=== PATIENT | female | born 1995 | race Caucasian/White ===

== ENCOUNTER 2016-12-12 22:21 | Inpatient (IN) | payer OTHER ==
[~2016-12-12] VITALS: Ht 167.6 cm; Wt 136.0 kg
[2016-12-12 22:24] VITALS: Ht 167.6 cm; Wt 136.0 kg
[2016-12-13] MEDS ORDERED: ONDANSETRON 4 MG INJ IV STA (02:51)
[2016-12-13] MEDS ORDERED: SOD CHLORIDE 0.9% 1,000 ML IV STA (02:51)
[2016-12-13] MEDS ORDERED: morphine 2 MG INJ IV STA (02:51)
--- NOTE | 2016-12-13 03:12 | ERD ---
ER Documentation Chief Complaint Date/Time DATE: 12/13/16 TIME: 03:11 Chief Complaint epigastric pain w/ N/V x 1 week (TRINA THOMASON NP) HPI 21-year-old female presents here in emergency department for complaints of epigastric pain nausea and vomiting for one week. Had multiple episodes of vomiting. Describes the pain as sharp pain, 6/10 scale, is worse after eating, accompanied with nausea and vomiting. Patient denies any blood in the vomit. Patient denies any blood in the stool or black stool. Patient denies any fever or chills. Patient denies hematuria or dysuria. Patient denies any flank pain. (TRINA THOMASON NP) ROS All systems reviewed and are negative except as per history of present illness. (TRINA THOMASON NP) Medications Home Meds Active Scripts Clotrimazole (Clotrim) 15 Gm Cr, 1 APPLIC TOP BID, #6 OZ Prov:SERAFIN ANTONIO 12/18/16 Pantoprazole* (Pantoprazole*) 40 Mg Tablet.dr, 40 MG PO 06,18 for 30 Days Prov:SERAFIN ANTONIO 12/18/16 Sucralfate (Carafate) 1 Gm Tablet, 1 GM PO QID for 30 Days, TAB Prov:SERAFIN ANTONIO 12/18/16 Harvel-3/Dha/Epa/Fish Oil (FISH OIL EC 1,000 MG SOFTGEL) 1 Each Capsule.dr, 1000 MG PO BID for 30 Days Prov:SERAFIN ANTONIO 12/18/16 Albuterol Sulfate* (Ventolin HFA*) 18 Gm Hfa.aer.ad, 2 PUFF INHALATION Q4H, #1 INHALER Prov:SERAFIN ANTONIO 12/18/16 Ondansetron (Ondansetron Odt) 4 Mg Tab.rapdis, 4 MG PO Q8 Y for NAUSEA AND/OR VOMITING, #30 TAB Prov:TRINA THOMASON NP 12/13/16 Hydrocodone/Acetaminophen ([place] 5-325 Tablet) 1 Each Tablet, 1 TAB PO Q6H Y for SEVERE PAIN LEVEL 7-10, #20 TAB Prov:TRINA THOMASON NP 12/13/16 Magaldrate/Simethicone* (Mylanta*) 355 Ml Susp, 30 ML PO QID Y for GASTROINTESTINAL UPSET, #1 BOTTLE Prov:TRINA THOMASON NP 12/13/16 Discontinued Reported Medications [none] No Conflict Check 12/13/16 Discontinued Scripts Omeprazole* (Omeprazole*) 20 Mg Capsule.dr, 20 MG PO DAILY, #30 Prov:TRINA THOMASON NP 12/13/16 Allergies Allergies: Coded Allergies: No Known Allergy (Unverified , 12/12/16) PMhx/Soc Medical and Surgical Hx: pt denies Medical Hx, pt denies Surgical Hx History of Surgery: No Anesthesia Reaction: No Hx Neurological Disorder: No Hx Respiratory Disorders: No Hx Cardiac Disorders: No Hx Psychiatric Problems: No Hx Miscellaneous Medical Probl: No Hx Alcohol Use: No Hx Substance Use: No Hx Tobacco Use: No Smoking Status: Never smoker (TRINA THOMASON NP) FmHx Family History: diabetes, other (HTN) (TRINA THOMASON NP) Physical Exam Vitals Vital Signs Date Time Temp Pulse Resp B/P Pulse Ox O2 Delivery O2 Flow Rate FiO2 12/13/16 08:10 98.2 92 24 117/66 98 Nasal Cannula 2.0 12/13/16 05:35 98.0 102 24 103/51 90 12/12/16 22:24 98.3 112 20 149/90 98 (NIKO MCKEON-Daksha) Physical Exam GENERAL: The patient is well developed and appropriate for usual state of health, in no apparent distress. CHEST: Clear to auscultation bilaterally. There are no rales, wheezes or rhonchi. HEART: Regular rate and rhythm. No murmurs, clicks, rubs or gallops. No S3 or S4. ABDOMEN: Soft, nontender and nondistended. Good bowel sounds. No rebound or guarding. No gross peritonitis. No gross organomegaly or masses. No Valentino sign or McBurney point tenderness. BACK: No midline or flank tenderness. EXTREMITIES: Equal pulses bilaterally. There is no peripheral clubbing, cyanosis or edema. No focal swelling or erythema. Full range of motion. Grossly neurovascularly intact. NEURO: Alert and oriented. Cranial nerves 2-12 intact. Motor strength in all 4 extremities with 5/5 strength. Sensation grossly intact. Normal speech and gait. SKIN: There is no apparent rash or petechia. The skin is warm and dry. HEMATOLOGIC AND LYMPHATIC: There is no evidence of excessive bruising or lymphedema. No gross cervical, axillary, or inguinal lymphadenopathy. (TRINA THOMASON NP) Result Diagram: 12/17/16 0600 12/17/16 0600 Results 24 hrs Laboratory Tests Test 12/13/16 03:12 12/13/16 03:16 12/13/16 06:32 White Blood Count 7.010^3/ul Red Blood Count 4.8810^6/ul Hemoglobin 13.3g/dl Hematocrit 40.7% Mean Corpuscular Volume 83.4fl Mean Corpuscular Hemoglobin 27.3pg Mean Corpuscular Hemoglobin Concent 32.7g/dl Red Cell Distribution Width 15.9% Platelet Count 70918^3/UL Mean Platelet Volume 12.8fl Neutrophils % 31.0% Lymphocytes % 49.0% Reactive Lymphocytes % 3.0% Monocytes % 10.0% Eosinophils % 4.0% Basophils % 1.0% Neutrophils # 2.210^3/ul Lymphocytes # 3.410^3/ul Monocytes # 0.710^3/ul Eosinophils # 0.310^3/ul Basophils # 0.110^3/ul Differential Comment MANUAL DIFF Platelet Estimate PLT APPEAR ADEQUATE Anisocytosis FEW Ovalocytes FEW Stomatocytes FEW Sodium Level 141mmol/L Potassium Level 3.4mmol/L Chloride Level 104mmol/L Carbon Dioxide Level 24mmol/L Anion Gap 16 Blood Urea Nitrogen 8mg/dl Creatinine 0.71mg/dl Glucose Level 105mg/dl Calcium Level 8.4mg/dl Total Bilirubin 0.4mg/dl Direct Bilirubin 0.00mg/dl Indirect Bilirubin 0.4mg/dl Aspartate Amino Transf (AST/SGOT) 101IU/L Alanine Aminotransferase (ALT/SGPT) 61IU/L Alkaline Phosphatase 72IU/L Troponin I < 0.012ng/ml B-Type Natriuretic Peptide 26PG/ML Total Protein 7.9g/dl Albumin 3.9g/dl Globulin 4.00g/dl Albumin/Globulin Ratio 0.97 Lipase 113U/L Urine Color YELLOW Urine Clarity CLEAR Urine pH 6.0 Urine Specific [place] 1.020 Urine Ketones NEGATIVE Urine Nitrite NEGATIVE Urine Bilirubin 1+ Urine Ictotest POSITIVE Urine Urobilinogen 0.2 E.U./dL Urine Leukocyte Esterase NEGATIVE Urine Hemoglobin NEGATIVE Urine Glucose NEGATIVE% Urine Total Protein NEGATIVE Blood Gas Specimen Source Blood arterial Arterial Blood Date Drawn 12/13/2016 6:40:07 AM Arterial Blood pH (Temp corrected) 7.423 Arterial Blood pCO2 (Temp correct) 34.6mmhg Arterial Blood pO2 (Temp corrected) 83.0mmHG Arterial Blood HCO3 22.1mmol/L Arterial Blood Base Excess -1.7mmol/L Arterial Blood Oxygen Saturation 96.3mmHG Cameron Test ACCEPTAB Arterial Blood Gas Puncture Site Right Radial Arterial Blood Carboxyhemoglobin 0.3% Arterial Blood Methemoglobin 0.4% Blood Gas A-a O2 Differential 68.6mmHg Oxyhemoglobin Percent 95.6% Total Hemoglobin 13.4g/dl Blood Gas Temperature 37.0C Blood Gas Modality NASAL CANNULA FiO2 27.0% Blood Gas Notified Whom UP Blood Gas Notified Time 12/13/2016 6:48:57 AM Current Medications Medications (Trade) Dose Ordered Sig/Ashtyn Route PRN Reason Start Time Stop Time Status Last Admin Dose Admin Sodium Chloride (NS) 1,000 ml @ 1,000 mls/hr Q1H STAT IV 12/13/16 02:51 12/13/16 03:50 DC 12/13/16 03:15 Morphine Sulfate (morphine) 2 mg ONCE STAT IV 12/13/16 02:51 12/13/16 02:52 DC 12/13/16 03:16 Ondansetron HCl (Zofran Inj) 4 mg ONCE STAT IV 12/13/16 02:51 12/13/16 02:52 DC 12/13/16 03:15 Miscellaneous Medication 40 ml 40 ml ONCE ONCE PO 12/13/16 05:00 12/13/16 05:09 DC 12/13/16 05:13 Sodium Chloride (NS) 100 ml @ ud STK-MED ONCE .ROUTE 12/13/16 07:18 12/13/16 07:19 DC 12/13/16 07:59 Iohexol 150 ml 150 ml STK-MED ONCE .ROUTE 12/13/16 07:18 12/13/16 07:19 DC Iohexol (Omnipaque) 100 ml @ ud STK-MED ONCE .ROUTE 12/13/16 07:33 12/13/16 07:34 DC 12/13/16 08:00 Iohexol (Omnipaque 350mg/ ml) 50 ml STK-MED ONCE .ROUTE 12/13/16 07:33 12/13/16 07:34 DC 12/13/16 08:00 (NIKO MCKEON PA-C) Results 24 hrs Patient was given medication for pain here in emergency department, after treatment, patient verbalized feeling much better. Patient's pain is improved.Patient was given Zofran here in the emergency department. After treatment, patient was able to tolerate po fluids here in the emergency department without any vomiting. There is no signs and symptoms of dehydration. Normal saline IV bolus was given here in emergency department for rehydration, patient tolerated IV fluids. PROCEDURE: Abdominal ultrasound, limited. CLINICAL INDICATION: Abdominal pain. TECHNIQUE: Multiple real-time images were acquired of the patient's right upper abdomen utilizing a high resolution transducer. COMPARISON: None FINDINGS: The liver demonstrates increased echogenicity and size measuring 20.6 cm. There is no focal mass or intrahepatic biliary ductal dilatation. The portal vein is patent. The gallbladder is not distended. No gallstones are identified. There is no pericholecystic fluid or gallbladder wall thickening. The common bile duct measures 4.8 mm in maximal dimension. The pancreas is obscured by overlying bowel gas. No free fluid is identified. The right kidney is normal size and echogenicity measuring 11.1 cm. There is no focal renal mass or echogenic calculus identified. There is no obstructive uropathy. IMPRESSION: Enlarged liver with fatty infiltration. Pancreas obscured by overlying bowel gas. .Óscar Whitney MD, MD Date Time Electronically viewed and signed by .Óscar Whitney MD, MD on 12/13/2016 04:32 .T/ CC: TRINA THOMASON NP Upon trying to reevaluate the patient, patient continued to have mild elevation of heart rate, 10 4 bpm, now hypoxic at 89-91% O2 saturation, further evaluation and discussion with the patient was done, states that she sometimes has on and off shortness of breath for the last 3 days, I discussed this case with my attending physician, Dr. Riddle, he recommended to do a chest x-ray, and consider possible CT angiogram if chest x-ray is normal. (TRINA THOMASON NP) Procedures/MDM Medical Decision Making: Patient's symptoms of epigastric pain most likely is consistent with gastritis. No gallbladder stones noted ear no symptoms of pancreatitis. Liver function tests are normal, lipase normal. No leukocytosis or bandemia noted. There is low suspicion for abdominal emergencies at this time. Patients abdominal exam is normal at this time. Patients radiology exam does not show any abdominal emergencies at this time. There is low suspicion for appendicitis, cholecystitis, abdominal aortic aneurysms or peritonitis at this time. There is low suspicion for sepsis. Patient appears well and is hemodynamically stable. Patient will be signed out J RAFA Mckeon, as per discussion with Dr. Riddle, to do a chest x-ray, pending results at this time, a chest x-ray is normal to consider CT angiogram. (TRINA THOMASON NP) ED COURSE: Patient was signed out to me by EXPLOSIVE OPERATOR, Trina Thomason. Upon review of the patient's case, CBC, BMP, lipase are unremarkable. Gallbladder ultrasound was unremarkable. The patient was stable throughout ED course. I kept the patient and/or family informed of laboratory and diagnostic imaging results throughout the ED course. EKG: Read by Dr. Milan, attending physician. EKG shows normal sinus rhythm at a rate of 96 bpm. No arrhythmias, acute ST elevations or T wave changes were noted. DIAGNOSTIC IMAGING: Read by radiologist. DIAGNOSTIC IMAGING REPORT Patient: ALYSSA CHAMORRO : 1995 Age: 21 Sex: F MR #: [id number] [facility] #: [id number] DOS: 12/13/16 0000 Ordering MD: TRINA THOMASON NP Location: [facility] Room/Bed: PROCEDURE: XR Chest. CLINICAL INDICATION: Hypoxia TECHNIQUE: A single AP view of the chest was obtained. COMPARISON: None. FINDINGS: Lung volumes are low. There are mild diffuse interstitial opacities. No focal airspace opacification, pleural effusion or pneumothorax is seen. The cardiomediastinal silhouette is mildly enlarged. The osseous structures are unremarkable. IMPRESSION: 1. Mild diffuse interstitial opacities, at least partially related to low lung volumes. Interstitial edema/pneumonitis is not excluded. 2. Mild cardiomegaly. RPTAT: .Christina Lee MD, Date Time Electronically viewed and signed by .Christina Lee MD, MD on 12/13/2016 06 :09 .G/ CC: TRINA THOMASON NP DIAGNOSTIC IMAGING REPORT Patient: ALYSSA CHAMORRO : 1995 Age: 21 Sex: F MR #: [id number] DOS: 12/13/16 0644 Ordering MD: NIKO MCKEON PA-C Location: [facility] Room/Bed: PROCEDURE: CT pulmonary angiogram. CLINICAL INDICATION: Hypoxia, shortness of breath TECHNIQUE: CT scan of the chest and CT pulmonary angiogram was performed utilizing axial tomographic imaging from the thoracic inlet to the domes of the diaphragm. High-resolution thin slice coronal and sagittal imaging was obtained from the axial source images. 3-D volumetric rendered post processing was performed as well. The patient was examined following the uncomplicated intravenous administration of 125 cc of Omnipaque 350. The images were reviewed on a PACS workstation. The total exam CTDI equals 7.04, 56.34, 19.95 and the total exam DLP equals 729.89 mGy-cm. COMPARISON: Chest x-ray performed earlier on the same date FINDINGS: Lung volumes are low. There are diffuse bilateral interstitial opacities. There is prominence of the dependent pulmonary vessels. There is mild bibasilar atelectasis. No focal airspace opacity, pleural effusion, or pneumothorax is seen. No pulmonary nodules or masses are identified. There is no abnormal interstitial thickening. The trachea and proximal bronchi are unremarkable. The visualized thyroid is unremarkable. The heart is mildly enlarged. The aorta demonstrates normal branching pattern. The aorta is normal in caliber. There is no evidence of aortic dissection. The central pulmonary arteries are normal in caliber. The attenuation of the central pulmonary arteries measures 275 HU. No filling defects are identified within the proximal pulmonary arterial branches to suggest pulmonary embolism. No hilar, mediastinal, or axillary lymphadenopathy is identified. Limited evaluation of the upper abdomen demonstrates hepatosplenomegaly. The osseous structures are unremarkable. IMPRESSION: 1. No CT evidence for pulmonary embolism. 2. Mild cardiomegaly with findings suggesting pulmonary vascular congestion and interstitial edema. 3. Hepatosplenomegaly. RPTAT: HH .Christina Lee MD, MD Date Time Electronically viewed and signed by .Christina Lee MD, MD on 12/13/2016 08 :07 .G/ CC: NIKO MCKEON PA-C Patient presents to the emergency department with epigastric pain 3 days. Upon discharge patient was noted to have oxygen saturation of 88%. Patient states she did have some shortness of breath. Given her low O2 sats and shortness of breath, chest x-ray, EKG, troponin, BNP were ordered. Patient's chest x-ray showed mild diffuse interstitial opacities, at least partially related to low lung volumes. Interstitial edema/pneumonitis is not excluded. Mild cardiomegaly. EKG was within normal limits. Trop was negative. BNP was negative. I discussed the patient's case with my supervising physician, Dr. Milan. Given that patient continued to be tachycardic and have low O2 sats, requiring O2 therapy, a CTPA was ordered. CT PA showed no evidence of a pulmonary embolism. Mild cardiomegaly with findings of pulmonary vascular congestion and interstitial edema was noted. Hepatosplenomegaly was noted. I again discussed the findings of the CTPA with my supervising physician, Dr. Milan. Given that patient remains to have low O2 sats when not on oxygen therapy, patient will be admitted for further management. At this time, the patient's diagnosis is most consistent with hypoxia of unknown etiology. Patient was stable throughout entire ED course. (NIKO MCKEON PA-C) I was made aware of this patient early on his workup began in fast track. She had hypoxia and tachypnea. For blood gas analysis showing a low CO2 and less than optimal oxygenation and seem most likely this obese female had a pulmonary embolism. However CT is negative. She has also had no symptoms of infection and currently has no signs of bronchitis or pneumonia. She has no history of reactive airway disease was not wheezing and her expiratory time was much less and her inspiratory time. She received a breathing treatment to check for effectiveness and this did not have much effect either. She returned from CAT scan she was again satting at 88% without oxygen although she did not feel short of breath at that time. Because an etiology has not been found to why this young female would have hypoxia and shortness of breath and having her admitted. I have also ordered an echocardiogram to be performed today. I spoke with Dr. Calderón who will be admitting the patient to telemetry. (JOSE EDUARDO MILAN DO) Departure Diagnosis: Primary Impression: Hypoxia Additional Impressions: Tachypnea Dyspnea Epigastric pain Condition: Stable Patient Instructions: Epigastric Pain (Uncertain Cause) Additional Instructions: Patient is advised to take medications as prescribed. Patient is advised to rest, increase fluid intake and do avoid spicy food, eat at regular intervals, do brat diet for next 1-2 days and progress as tolerated. Patient is advised that if symptoms are worse, severe abdominal pain, uncontrolled vomiting, high fever, severe flank pain, worst signs and symptoms, to return to the emergency department immediately. Otherwise, patient can follow up with primary care doctor in 5-7 days. TRINA THOMASON NP December 13, 2016 03:12 NIKO MCKEON PA-C December 13, 2016 08:02 JOSE EDUARDO MILAN DO December 13, 2016 11:30
[2016-12-13 03:35] LABS: ADD SCAN DIFF NO
[2016-12-13 03:38] LABS: HEMATOCRIT 40.7 % (37.0-47.0); HEMOGLOBIN 13.3 g/dl (12.0-16.0); MEAN CORPUSCULAR HEMOGLOBIN 27.3 pg (29.0-33.0); MEAN CORPUSCULAR HGB CONC 32.7 g/dl (32.0-37.0); MEAN CORPUSCULAR VOLUME 83.4 fl (82.0-101.0); MEAN PLATELET VOLUME 12.8 fl (7.4-10.4); PLATELET COUNT 154 10^3/UL (140-415); RED BLOOD COUNT 4.88 10^6/ul (4.20-5.40); RED CELL DISTRIBUTION WIDTH 15.9 % (11.5-14.5)
[2016-12-13 03:39] LABS: ADD UMIC NO; URINE BILIRUBIN (Dip) 1+ (NEGATIVE); URINE BLOOD (Dip) NEGATIVE (NEGATIVE); URINE COLOR YELLOW (YELLOW); URINE GLUCOSE (Dip) NEGATIVE (NEGATIVE); URINE KETONES (Dip) NEGATIVE (NEGATIVE); URINE LEUKOCYTE ESTERASE (Dip) NEGATIVE (NEGATIVE); URINE NITRITE (Dip) NEGATIVE (NEGATIVE); URINE TOTAL PROTEIN (Dip) NEGATIVE (NEGATIVE); URINE UROBILINOGEN (Dip) 0.2 E.U./dL (0.1-1.0)
[2016-12-13 03:53] LABS: ALBUMIN 3.9 g/dl (3.3-4.9)
[2016-12-13 03:54] LABS: POTASSIUM 3.4 mmol/L (3.5-5.1)
[2016-12-13 03:54] LABS: ICTOTEST POSITIVE (NEGATIVE)
[2016-12-13 03:56] LABS: ALBUMIN/GLOBULIN RATIO 0.97; BILIRUBIN,INDIRECT 0.4 mg/dl (0-1.1); BILIRUBIN,TOTAL 0.4 mg/dl (0.2-1.3); CREATININE 0.71 mg/dl (0.44-1.00); TOTAL PROTEIN 7.9 g/dl (6.1-8.1)
[2016-12-13 03:57] LABS: CALCIUM 8.4 mg/dl (8.4-10.2)
--- NOTE | 2016-12-13 04:33 | RADRPT ---
PROCEDURE: Abdominal ultrasound, limited. CLINICAL INDICATION: Abdominal pain. TECHNIQUE: Multiple real-time images were acquired of the patient's right upper abdomen utilizing a high resolution transducer. COMPARISON: None FINDINGS: The liver demonstrates increased echogenicity and size measuring 20.6 cm. There is no focal mass or intrahepatic biliary ductal dilatation. The portal vein is patent. The gallbladder is not distend ed. No gallstones are identified. There is no pericholecystic fluid or gallbladder wall thickening . The common bile duct measures 4.8 mm in maximal dimension. The pancreas is obscured by overlying bowel gas. No free fluid is identified. The right kidney is normal size and echogenicity measuring 11.1 cm. There is no focal renal mass or echogenic calculus identified. There is no obstructive uropathy. IMPRESSION: Enlarged liver with fatty infiltration. Pancreas obscured by overlying bowel gas. .Óscar Whitney MD, MD Date Time Electronically viewed and signed by .Óscar Whitney MD, MD on 12/13/2016 04:32 .T/
[2016-12-13] MEDS ORDERED: LIDOCAINE/MYLANTA 40 ML BTL PO ONE (05:00)
[2016-12-13] MEDS ORDERED: MAG-19 PO (05:01)
[2016-12-13] MEDS ORDERED: OMEP20CA16 PO (05:01)
[2016-12-13] MEDS ORDERED: ONDA4TAB14 PO (05:01)
[2016-12-13] MEDS ORDERED: HYDR-906 PO (05:01)
[2016-12-13 05:25] LABS: BASOPHIL # 0.1 10^3/ul (0.0-0.1); EOSINOPHILS # 0.3 10^3/ul (0.0-0.5); LYMPHOCYTES # 3.4 10^3/ul (0.8-2.9); MONOCYTE # 0.7 10^3/ul (0.3-0.9); NEUTROPHIL # 2.2 10^3/ul (1.6-7.5)
[2016-12-13 05:26] LABS: ANISOCYTOSIS FEW; OVALOCYTES FEW; PLATELET ESTIMATE PLT APPEAR ADEQUATE; STOMATOCYTES FEW
--- NOTE | 2016-12-13 06:10 | RADRPT ---
PROCEDURE: XR Chest. CLINICAL INDICATION: Hypoxia TECHNIQUE: A single AP view of the chest was obtained. COMPARISON: None. FINDINGS: Lung volumes are low. There are mild diffuse interstitial opacities. No focal airspace opacificati on, pleural effusion or pneumothorax is seen. The cardiomediastinal silhouette is mildly enlarged. The osseous structures are unremarkable. IMPRESSION: 1. Mild diffuse interstitial opacities, at least partially related to low lung volumes. Interstiti al edema/pneumonitis is not excluded. 2. Mild cardiomegaly. RPTAT: HH .Christina Lee MD, MD Date Time Electronically viewed and signed by .Christina Lee MD, on 12/13/2016 06:09 .G/
[2016-12-13 06:49] LABS: AADO2 Arterial 68.6 mmHg (7.0-24.0); Allen Test ACCEPTAB; Arterial Base Excess -1.7 mmol/L (-3.0-3); Arterial COHb 0.3 % (0.0-3.0); Arterial Fraction of Oxyhgb 95.6 % (93.0-99.0); Arterial HCO3 22.1 mmol/L (22.0-26.0); Arterial MetHb 0.4 % (0.0-1.5); Arterial Total Hemglobin 13.4 g/dl (12.0-18.0); MODE NASAL CANNULA
[2016-12-13] MEDS ORDERED: SOD CHLORIDE 0.9% 100 ML ONE (07:18)
[2016-12-13] MEDS ORDERED: IOHEXOL 300MG/ML 150 ML BTL ONE (07:18)
[2016-12-13] MEDS ORDERED: IOHEXOL 350MG/ML 50 ML BTL ONE (07:33)
[2016-12-13] MEDS ORDERED: IOHEXOL 100 ML ONE (07:33)
--- NOTE | 2016-12-13 08:07 | RADRPT ---
PROCEDURE: CT pulmonary angiogram. CLINICAL INDICATION: Hypoxia, shortness of breath TECHNIQUE: CT scan of the chest and CT pulmonary angiogram was performed utilizing axial tomograp hic imaging from the thoracic inlet to the domes of the diaphragm. High-resolution thin slice coron al and sagittal imaging was obtained from the axial source images. 3-D volumetric rendered post pro cessing was performed as well. The patient was examined following the uncomplicated intravenous adm inistration of 125 cc of Omnipaque 350. The images were reviewed on a PACS workstation. The total ex am CTDI equals 7.04, 56.34, 19.95 and the total exam DLP equals 729.89 mGy-cm. COMPARISON: Chest x-ray performed earlier on the same date FINDINGS: Lung volumes are low. There are diffuse bilateral interstitial opacities. There is prominence of t he dependent pulmonary vessels. There is mild bibasilar atelectasis. No focal airspace opacity, pl eural effusion, or pneumothorax is seen. No pulmonary nodules or masses are identified. There is no abnormal interstitial thickening. The trachea and proximal bronchi are unremarkable. The visualized thyroid is unremarkable. The heart is mildly enlarged. The aorta demonstrates cristin l branching pattern. The aorta is normal in caliber. There is no evidence of aortic dissection. Th e central pulmonary arteries are normal in caliber. The attenuation of the central pulmonary arteri es measures 275 HU. No filling defects are identified within the proximal pulmonary arterial branch es to suggest pulmonary embolism. No hilar, mediastinal, or axillary lymphadenopathy is identified. Limited evaluation of the upper abdomen demonstrates hepatosplenomegaly. The osseous structures are unremarkable. IMPRESSION: 1. No CT evidence for pulmonary embolism. 2. Mild cardiomegaly with findings suggesting pulmonary vascular congestion and interstitial edema. 3. Hepatosplenomegaly. RPTAT: HH .Christina Lee MD, Date Time Electronically viewed and signed by .Christina Lee MD, MD on 12/13/2016 08:07 .Mayela/
[2016-12-13 08:10] VITALS: TEMP 98.2
[2016-12-13] MEDS ORDERED: ALBUTEROL 0.083% (NEB) 2.5 MG/3 ML AMP HHN STA (09:24)
[2016-12-13] MEDS ORDERED: ONDANSETRON 4 MG INJ IV PRN ×2 (09:30→12:30)
[2016-12-13] MEDS ORDERED: ACETAMINOPHEN 325 MG TAB PO PRN ×2 (09:30→12:30)
[2016-12-13] MEDS ORDERED: IPRATROPIUM (NEB) 0.5 MG/2.5 ML AMP HHN ONE (09:30)
[2016-12-13] MEDS ORDERED: FAMOTIDINE 20 MG TAB PO ONE (09:30)
[2016-12-13] MEDS ORDERED: HYDROCODONE/APAP (5/325) TAB PO PRN (12:30)
[2016-12-13] MEDS ORDERED: hydrALAzine 20 MG INJ IV PRN (12:30)
[2016-12-13] MEDS ORDERED: MAGNESIUM HYDROXIDE 30ML CUP PO PRN (12:30)
[2016-12-13] MEDS ORDERED: NACL 0.9% 3 ML SYG IV SCH (12:30)
[2016-12-13] MEDS ORDERED: LORAZEPAM 2 MG INJ IV PRN (12:30)
[2016-12-13] MEDS ORDERED: FUROSEMIDE 40 MG INJ IV ONE (12:30)
[2016-12-13] MEDS ORDERED: BISACODYL (EC) 5 MG TAB PO PRN (12:30)
--- NOTE | 2016-12-13 13:36 | RADRPT ---
PROCEDURE: US bilateral lower extremity veins. CLINICAL INDICATION: Bilateral leg pain and swelling. Shortness of breath. TECHNIQUE: Multiple longitudinal and transverse images of the bilateral lower extremity veins were obtained with delaney scale and color Doppler imaging. The common femoral vein, femoral vein, and popl iteal vein were evaluated. 2D grayscale measurements with compression sonography, color Doppler, and pulsed Doppler with augmentation. COMPARISON: No prior studies are available for comparison. FINDINGS: The bilateral common femoral, femoral and popliteal veins are normally compressible throughout. Col or flow demonstrates normal filling of the vessels. Normal waveforms are visualized and there is no rmal response to augmentation. IMPRESSION: 1. No evidence of deep vein thrombosis involving either lower extremity. RPTAT: QQ .Rian Thornton MD, MD Date Time Electronically viewed and signed by .Rian Thornton MD, on 12/13/2016 13:36 .R/
[2016-12-13 14:02] LABS: CHOL/HDL RATIO 8.6 RATIO
[2016-12-13 14:04] LABS: CREATINE KINASE 116 IU/L (23-200)
[2016-12-13 14:14] LABS: CK-MB 0.73 ng/ml (0.0-2.4)
[2016-12-13 15:09] LABS: TROPONIN-I < 0.012 ng/ml (0.00-0.12)
--- NOTE | 2016-12-13 16:20 | HP ---
DATE OF ADMISSION: 12/12/2016 TIME OF EVALUATION: 12:00 p.m. REASON FOR ADMISSION: Epigastric pain with nausea, vomiting x1 week, dyspnea. HISTORY OF PRESENT ILLNESS: This is a 21-year-old morbidly obese female who verbalized past medical history of essential hypertension but not on any regular medications. She came to the emergency room with chief complaint of epigastric pain, nausea, and vomiting for 1 week. The patient verbalized the pain as a sharp pain, 6/10, that was worse after eating and accompanied with nausea and vomiting. The patient denied any blood or bile in her vomitus. She denied any melena or hematochezia. The patient denied any fevers or chills. The patient denied dysuria, hematuria or pyuria. The patient underwent a gallbladder ultrasound in the emergency room that showed enlarged liver with fatty infiltration and pancreas obscured by overlying bowel gas. The patient was to be discharged from the ER. However, the patient was noticed to be severely hypoxic. The patient was saturating in the low 80s on room air. The patient also verbalized shortness of breath for the past 3 days upon further questioning. The patient subsequently underwent a CT angiogram of the chest that showed no CT evidence of pulmonary embolism but mild cardiomegaly with findings suggestive of pulmonary vascular congestion and interstitial edema and hepatosplenomegaly. Hence, a clinical decision was made to admit the patient to inpatient setting to have her further evaluated. PAST MEDICAL HISTORY: Essential hypertension. Obesity. PAST SURGICAL HISTORY: Left ankle surgery. HOME MEDICATIONS: None. ALLERGIES: NO KNOWN DRUG ALLERGIES. SOCIAL HISTORY: The patient lives at home with her family. Currently works in a bakery. Denies any use of tobacco, alcohol or illicit drugs. REVIEW OF SYSTEMS: A 12-point review of systems was made, and the review of systems is negative except for what is mentioned in the history of present illness. PHYSICAL EXAMINATION: VITAL SIGNS: Temperature 98.2, pulse rate 84, respiratory rate 29, blood pressure 102/32, oxygen saturation 92% on room air. GENERAL: This is a morbidly obese female lying in bed in no apparent distress. HEENT: Head normocephalic and atraumatic. Eyes: Anicteric sclerae. Conjunctivae clear. ENT: Nasal septum is midline. Oral mucosa is dry. NECK: Short and obese with increased neck circumference. RESPIRATORY: Bilaterally diminished breath sounds. A few fine crackles heard at the bases. No use of accessory muscles of respiration. CARDIAC: Regular rate and rhythm. S1, S2 heard. ABDOMEN: Soft, nontender and nondistended. Bowel sounds positive in all 4 quadrants. GENITOURINARY: Deferred. EXTREMITIES: No cyanosis, no clubbing, no edema. Peripheral pulses palpable. NEUROLOGIC: The patient is awake, alert and oriented. Cranial nerves are grossly intact. LABORATORY AND DIAGNOSTIC DATA: WBC 7.0, hemoglobin 13.3, hematocrit 40.7, platelet count 154. Sodium 141, potassium 3.4, chloride 104, carbon dioxide 25 , anion gap 16, BUN 8, creatinine 0.71, glucose 105, calcium 8.4, AST 101, ALT 60, alkaline phosphatase 72. IMPRESSION: A 21-year-old female who came to the emergency room with multiple complaints who was noticed to have hypoxia with radiographic evidence of pulmonary vascular congestion who will be admitted here for further treatment and evaluation. ASSESSMENT AND PLAN: 1. Acute respiratory failure. Hypoxic. Etiology could be most probably secondary to pulmonary vascular congestion secondary to diastolic heart failure versus others. The patient will be provided with adequate oxygen. She will be started on inhaled bronchodilators and diuretics. A 2D echocardiogram will be obtained to evaluate the left ventricular ejection fraction. 2. Abdominal pain with associated nausea and vomiting. Etiology unclear. Gallbladder ultrasound showing hepatosplenomegaly and fatty infiltration of the liver. The patient will be treated symptomatically. If the patient continues to have abdominal pain, further imaging studies will be done. The patient's abdominal pain has been improving. 3. Morbid obesity. Body mass index of 48.4 kg/meter squared. Weight reduction will be advised. A fasting lipid panel will be obtained. Hemoglobin A1c will be obtained. Plan. The patient will be admitted to inpatient telemetry floor. The patient will be started on a low-cholesterol diet. The patient will be started on DVT prophylaxis and gastrointestinal prophylaxis. The patient will remain a FULL CODE. Activities will be as tolerated. The rest of the patient's management will be based on clinical course and the results of diagnostic studies. Based on the patient's clinical presentation, she most probably requires at least 1-midnight's stay for further management and evaluation of her clinical presentation. The case and management of this patient was fully discussed with Dr. Romo. SHANON ROMO MD, AM/DAVID Conf#: [id number] DID#: [id number] ANAMIKA
[2016-12-13] MEDS: ALBUTEROL 0.083% (NEB) 2.5 MG/3 ML AMP HHN SCH ×2 (16:41→21:28)
--- NOTE | 2016-12-13 17:29 | RADRPT ---
Echocardiogram Report Patient Name: ALYSSA CHAMORRO Gender: Female Date: 1995 Study Date: 13-Dec-2016 Fine Unhairer: Emily Perez [facility] Location: [facility] Ref. Physician: JOSE EDUARDO MILAN Quality: Good Procedures: Transthoracic echocardiogram with complete 2D, M-Mode, and doppler examination. Indications: Shortness of breath. Tachycardia. Negative workup. Hypoxia. 2D/M Mode Doppler Measurement Value Normal Ranges Measurement Value Normal Ranges LVIDd 2D 4.8 3.5 - 5.6 cm AV Peak Ladarius 2.1 m/sec LVIDs 2D 2.0 2.1 - 4.1 cm AV Peak PG 17.8 mmHg LVPWd 2D 1.0 0.6 - 1.1 cm LVOT Peak [place] 1.6 m/sec IVSd 2D 1.0 0.6 - 1.1 cm LVOT Peak PG 9.7 mmHg AoR Diam 2D 2.4 2.0 - 3.7 cm MV E Peak Ladarius 1.1 m/sec EDV 2D 106.8 cm3 MV A Peak Ladarius 1.0 m/sec ESV 2D 8.0 cm3 MV E/A 1.2 LA Dimen 2D 3.3 2.3 - 4.0 cm MV Decel Time 128 msec MV Decel Buchanan 9 MV E/A 1.2 TR Peak Ladarius 2.0 m/sec TR Peak PG 15.8 mmHg RVSP 19.0 mmHg Findings Left Ventricle: Normal left ventricular systolic function. Normal left ventricular cavity size. Normal left ventricular wall thickness. Ejection fraction is visually estimated at 65 %. Tissue Doppler/Mitral Doppler indices are within normal limits. Right Ventricle: Normal right ventricular size. Normal right ventricular systolic function. Left Atrium: The left atrium is normal in size. Right Atrium: The right atrium is normal in size. Mitral Valve: Normal appearance and function of the mitral valve with trace physiologic regurgitation. Aortic Valve: Normal appearance of the aortic valve. No significant aortic stenosis or insufficiency. Tricuspid Valve: Normal appearance and function of the tricuspid valve with trace physiologic regurgitation. Estimated peak PA systolic pressure 19 mmHg. Pulmonic Valve: Normal pulmonic valve appearance. Pericardium: Normal pericardium with no significant pericardial effusion. Aorta: Normal aortic root. IVC: Normal size and normal respiratory collapse consistent with normal right atrial pressure. Conclusions 1.Normal left ventricular systolic function. Normal left ventricular cavity size. Normal left ventricular wall thickness. Ejection fraction is visually estimated at 65 %. Tissue Doppler/Mitral Doppler indices are within normal limits. 2.Normal right ventricular size. Normal right ventricular systolic function. 3.The left atrium is normal in size. 4.The right atrium is normal in size. 5.No significant valvular stenosis or regurgitation seen. 6.Normal pericardium with no significant pericardial effusion. Electronically Signed By: Tigre Cardenas 13-Dec-2016 17:28:49 -0700 Patient Name: ALYSSA CHAMORRO Study Date: 13-Dec-2016 [id number]
[2016-12-13 18:09] VITALS: PULSE 93
[2016-12-13 19:31] VITALS: BP 115/57; RESP 20
[2016-12-13 20:13] VITALS: PULSE 84
[2016-12-13] MEDS: FAMOTIDINE 20 MG INJ IV SCH (21:35)
[2016-12-14] VITALS (12 sets, daily range): BP systolic 116–141; BP diastolic 57–65; PULSE 65–109; RESP 15–20
[2016-12-14 07:18] LABS: ADD SCAN DIFF NO
[2016-12-14 07:30] LABS: BASOPHILS % 0.7 % (0.0-2.0); EOSINOPHILS # 0.3 10^3/ul (0.0-0.5); EOSINOPHILS % 5.6 % (0.0-7.0); HEMATOCRIT 36.8 % (37.0-47.0); HEMOGLOBIN 11.7 g/dl (12.0-16.0); LYMPHOCYTES # 3.1 10^3/ul (0.8-2.9); MEAN CORPUSCULAR HEMOGLOBIN 26.5 pg (29.0-33.0); MEAN CORPUSCULAR HGB CONC 31.8 g/dl (32.0-37.0); MEAN CORPUSCULAR VOLUME 83.4 fl (82.0-101.0); MONOCYTE # 0.4 10^3/ul (0.3-0.9); MONOCYTES % 6.6 % (0.0-11.0); NEUTROPHIL # 1.9 10^3/ul (1.6-7.5); NEUTROPHILS % 33.3 % (39.0-77.0); PLATELET COUNT 147 10^3/UL (140-415); RED BLOOD COUNT 4.41 10^6/ul (4.20-5.40); WHITE BLOOD COUNT 5.8 10^3/ul (4.8-10.8)
[2016-12-14 07:40] LABS: LYMPHOCYTES % 53.6 % (15.0-51.0)
[2016-12-14] MEDS: ALBUTEROL 0.083% (NEB) 2.5 MG/3 ML AMP HHN SCH ×3 (08:00→19:48)
[2016-12-14 08:11] LABS: CALCIUM 7.9 mg/dl (8.4-10.2); CREATININE 0.63 mg/dl (0.44-1.00); POTASSIUM 3.4 mmol/L (3.5-5.1)
[2016-12-14 08:22] LABS: TROPONIN-I < 0.012 ng/ml (0.00-0.12)
[2016-12-14 08:23] LABS: MAGNESIUM 1.9 mg/dl (1.7-2.5)
[2016-12-14] MEDS: FUROSEMIDE 40 MG INJ IV SCH (08:38)
[2016-12-14] MEDS: FAMOTIDINE 20 MG INJ IV SCH ×2 (08:38→21:41)
[2016-12-14] MEDS: CLOTRIMAZOLE 1% 30 GM CR TOP SCH ×2 (08:39→21:41)
[2016-12-14] MEDS: ENOXAPARIN 40 MG/0.4 ML SYG SC SCH (08:39)
[2016-12-14] MEDS: morphine 2 MG INJ IV PRN (08:44)
--- NOTE | 2016-12-14 14:15 | PN ---
Date/Time of Note Date/Time of Note DATE: 12/14/16 TIME: 14:09 Assessment/Plan VTE Prophylaxis VTE Prophylaxis Intervention: LMWH Lines/Catheters IV [facility] Saline Lock Urinary Cath still in place: No Assessment/Plan Assessment/Plan 1. Transient acute pulmonary edema, unclear etiology, unlikely cardiac, symptoms improved 2. Acute gastritis versus PUD, on protonix 3. Obesity, with fatty liver, lose weight DVT prophylaxis: lovenox Subjective 24 Hr Interval Summary Free Text/Dictation no SOB. No nausea or vomiting Exam/Review of Systems Vital Signs Vitals Vital Signs Date Time Temp Pulse Resp B/P Pulse Ox O2 Delivery O2 Flow Rate FiO2 12/14/16 12:42 69 12/14/16 08:45 Nasal Cannula 1.0 12/14/16 07:36 98.8 20 116/59 95 12/13/16 16:42 21 Intake and Output 12/13/16 12/13/16 12/14/16 15:00 23:00 07:00 Intake Total 1140 ml Balance 1140 ml Exam Constitutional: alert, obese, oriented, well developed Psych: nl mood/affect, no complaints Head: atraumatic, normocephalic Eyes: EOMI, nl conjunctiva, nl lids ENMT: mucosa pink and moist, nl external ears & nose, nl lips & teeth, nl nasal mucosa & septum Neck: non-tender, supple Respiratory: clear to auscultation, normal air movement, No congested cough, No crackles/rales, No diminished breath sounds, No intercostal retraction, No labored breathing, No other, No respirations, No tactile fremitus, No wheezing Cardiovascular: nl pulses, regular rate and rhythm, No S3, No S4, No bruits, No diastolic murmur, No edema, No gallop, No irregular rhythm, No jugular venous distention (JVD), No murmurs/extra sounds, No other, No rub, No systolic murmur Gastrointestinal: nl liver, spleen, non-tender, soft Musculoskeletal: nl extremities to inspection Extremities: normal pulses, No calf tenderness, No clubbing, No cyanosis, No edema, No other, No palpable cord, No pitting pedal edema, No tenderness Neurological: PREVENTION RN II-XII intact, nl mental status, nl speech, nl strength Skin: nl turgor Lymph: nl lymph nodes Results Result Diagram: 12/14/16 0620 12/14/16 0620 Results 24 hrs Laboratory Tests Test 12/13/16 15:55 12/14/16 06:20 Free Thyroxine 1.27 White Blood Count 5.8 Red Blood Count 4.41 Hemoglobin 11.7 L Hematocrit 36.8 L Mean Corpuscular Volume 83.4 Mean Corpuscular Hemoglobin 26.5 L Mean Corpuscular Hemoglobin Concent 31.8 L Red Cell Distribution Width 16.0 H Platelet Count 147 Mean Platelet Volume 13.0 H Neutrophils % 33.3 L Lymphocytes % 53.6 H Monocytes % 6.6 Eosinophils % 5.6 Basophils % 0.7 Nucleated Red Blood Cells % 0.0 Neutrophils # 1.9 Lymphocytes # 3.1 H Monocytes # 0.4 Eosinophils # 0.3 Basophils # 0.0 Nucleated Red Blood Cells # 0.0 Sodium Level 136 Potassium Level 3.4 L Chloride Level 105 Carbon Dioxide Level 26 Anion Gap 8 # Blood Urea Nitrogen 7 Creatinine 0.63 Glucose Level 90 Calcium Level 7.9 L Phosphorus Level 4.0 Magnesium Level 1.9 Troponin I < 0.012 Medications Medications Current Medications Lorazepam (Ativan) 0.5 mg Q6H PRN IV ANXIETY; Start 12/13/16 at 12:30 Ondansetron HCl (Zofran Inj) 4 mg Q6H PRN IV NAUSEA AND/OR VOMITING; Start 12/13 at 12:30 Acetaminophen (Tylenol Tab) 650 mg Q6H PRN PO PAIN LEVEL 1-3 OR FEVER; Start at 12:30 Acetaminophen/ Hydrocodone Bitart ([place] (5/325)) 1 tab Q6H PRN PO PAIN LEVEL 4 -6; Start 12/13/16 at 12:30 Morphine Sulfate (morphine) 2 mg Q4H PRN IV PAIN LEVEL 7-10 Last administered on 12/14/16 08:44; Admin Dose 2 MG; Start 12/13/16 at 12:30 Magnesium Hydroxide (Milk Of Mag) 30 ml DAILY PRN PO CONSTIPATION; Start at 12:30 Bisacodyl (Dulcolax) 5 mg DAILY PRN PO CONSTIPATION; Start 12/13/16 at 12:30 Famotidine (Pepcid Iv) 20 mg Q12 IV Last administered on 12/14/16 08:38; Admin Dose 20 MG; Start 12/13/16 at 21:00 Enoxaparin Sodium (Lovenox) 40 mg DAILY SC Last administered on 12/14/16 08:39 ; Admin Dose 40 MG; Start 12/14/16 at 09:00 Hydralazine HCl (Apresoline) 10 mg Q6H PRN IV SBP>160; Start 12/13/16 at 12:30 Furosemide (Lasix) 40 mg DAILY IV Last administered on 12/14/16 08:38; Admin Dose 40 MG; Start 12/14/16 at 09:00 Clotrimazole (Lotrimin Cr) 1 applic BID TOP Last administered on 12/14/16 08:39 ; Admin Dose 1 APPLIC; Start 12/14/16 at 09:00 GENESIS JEONG MD December 14, 2016 14:14
--- NOTE | 2016-12-14 14:36 | PN ---
Date/Time of Note Date/Time of Note DATE: 12/14/16 TIME: 13:48 Assessment/Plan VTE Prophylaxis VTE Prophylaxis Intervention: heparin Lines/Catheters IV Catheter Type (from [facility]): Saline Lock Urinary Cath still in place: No Exam/Review of Systems Vital Signs Vitals Vital Signs Date Time Temp Pulse Resp B/P Pulse Ox O2 Delivery O2 Flow Rate FiO2 12/14/16 12:42 69 12/14/16 08:45 Nasal Cannula 1.0 12/14/16 07:36 98.8 20 116/59 95 12/13/16 16:42 21 Intake and Output 12/13/16 12/13/16 12/14/16 15:00 23:00 07:00 Intake Total 1140 ml Balance 1140 ml Results Result Diagram: 12/14/16 0620 12/14/16 0620 Results 24 hrs Laboratory Tests Test 12/13/16 15:55 12/14/16 06:20 Free Thyroxine 1.27 White Blood Count 5.8 Red Blood Count 4.41 Hemoglobin 11.7 L Hematocrit 36.8 L Mean Corpuscular Volume 83.4 Mean Corpuscular Hemoglobin 26.5 L Mean Corpuscular Hemoglobin Concent 31.8 L Red Cell Distribution Width 16.0 H Platelet Count 147 Mean Platelet Volume 13.0 H Neutrophils % 33.3 L Lymphocytes % 53.6 H Monocytes % 6.6 Eosinophils % 5.6 Basophils % 0.7 Nucleated Red Blood Cells % 0.0 Neutrophils # 1.9 Lymphocytes # 3.1 H Monocytes # 0.4 Eosinophils # 0.3 Basophils # 0.0 Nucleated Red Blood Cells # 0.0 Sodium Level 136 Potassium Level 3.4 L Chloride Level 105 Carbon Dioxide Level 26 Anion Gap 8 # Blood Urea Nitrogen 7 Creatinine 0.63 Glucose Level 90 Calcium Level 7.9 L Phosphorus Level 4.0 Magnesium Level 1.9 Troponin I < 0.012 Medications Medications Current Medications Lorazepam (Ativan) 0.5 mg Q6H PRN IV ANXIETY; Start 12/13/16 at 12:30 Ondansetron HCl (Zofran Inj) 4 mg Q6H PRN IV NAUSEA AND/OR VOMITING; Start 12/13 at 12:30 Acetaminophen (Tylenol Tab) 650 mg Q6H PRN PO PAIN LEVEL 1-3 OR FEVER; Start at 12:30 Acetaminophen/ Hydrocodone Bitart ([place] (5/325)) 1 tab Q6H PRN PO PAIN LEVEL 4 -6; Start 12/13/16 at 12:30 Morphine Sulfate (morphine) 2 mg Q4H PRN IV PAIN LEVEL 7-10 Last administered on 12/14/16 08:44; Admin Dose 2 MG; Start 12/13/16 at 12:30 Magnesium Hydroxide (Milk Of Mag) 30 ml DAILY PRN PO CONSTIPATION; Start at 12:30 Bisacodyl (Dulcolax) 5 mg DAILY PRN PO CONSTIPATION; Start 12/13/16 at 12:30 Famotidine (Pepcid Iv) 20 mg Q12 IV Last administered on 12/14/16 08:38; Admin Dose 20 MG; Start 12/13/16 at 21:00 Enoxaparin Sodium (Lovenox) 40 mg DAILY SC Last administered on 12/14/16 08:39 ; Admin Dose 40 MG; Start 12/14/16 at 09:00 Hydralazine HCl (Apresoline) 10 mg Q6H PRN IV SBP>160; Start 12/13/16 at 12:30 Furosemide (Lasix) 40 mg DAILY IV Last administered on 12/14/16 08:38; Admin Dose 40 MG; Start 12/14/16 at 09:00 Clotrimazole (Lotrimin Cr) 1 applic BID TOP Last administered on 12/14/16 08:39 ; Admin Dose 1 APPLIC; Start 12/14/16 at 09:00 GENESIS JEONG MD December 14, 2016 13:58
[2016-12-14] MEDS: PANTOPRAZOLE (EC) 40 MG TAB PO SCH (14:47)
--- NOTE | 2016-12-14 15:13 | RADRPT ---
PROCEDURE: XR Chest. CLINICAL INDICATION: Pulmonary edema. Shortness of breath. TECHNIQUE: Single frontal view. COMPARISON: None. FINDINGS: There are low lung volumes. There is atelectasis at the lung bases. The lungs are otherwise clear. The heart is mildly enlarged. There is no pleural effusion. There is no pneumothorax. IMPRESSION: 1. Low lung volumes. 2. Atelectasis at the lung bases. 3. Mild cardiomegaly. RPTAT: QQ .Rian Thornton MD, Date Time Electronically viewed and signed by .Rian Thornton MD, on 12/14/2016 15:13 .R/
[2016-12-15] VITALS (10 sets, daily range): BP systolic 110–124; BP diastolic 58–70; PULSE 76–91; RESP 15–20
[2016-12-15] MEDS: PANTOPRAZOLE (EC) 40 MG TAB PO SCH ×2 (05:24→18:34)
[2016-12-15] MEDS: ALBUTEROL 0.083% (NEB) 2.5 MG/3 ML AMP HHN SCH ×3 (07:55→21:09)
[2016-12-15] MEDS: FAMOTIDINE 20 MG INJ IV SCH ×2 (08:45→20:55)
[2016-12-15] MEDS: morphine 2 MG INJ IV PRN (08:46)
[2016-12-15] MEDS: FUROSEMIDE 40 MG INJ IV SCH (08:46)
[2016-12-15] MEDS: ENOXAPARIN 40 MG/0.4 ML SYG SC SCH (08:47)
[2016-12-15] MEDS: CLOTRIMAZOLE 1% 30 GM CR TOP SCH ×2 (08:54→21:00)
--- NOTE | 2016-12-15 15:24 | CONS ---
Date/Time of Note Date/Time of Note DATE: 12/15/16 TIME: 15:20 Assessment/Plan Assessment/Plan Additional Assessment/Plan Abdominal pain/Nausea Evaluate GI bleed versus PUD vs other etiology Stool OB, if positive strongly recommend EGD Monitor H&H daily, transfuse 1 unit for hemoglobin less than 7.5, 2 units for hemoglobin less than 7.[address] abdomen Continue PPI twice daily EGD on Saturday with Dr. Cid, pt and mother advised of R/B/A to procedure and provide informed consent to proceed Morbid obesity Management per Primary Encourage weight Check A1c Hepatomegaly/fatty liver Encourage weight loss Hypertension Continue home medication Management per primary Further recommendations depend on clinical course Patient seen in collaboration with Dr. Cid Consultation Date/Type/Reason Admit Date/Time December 13, 2016 at 09:30 Type of Consultation: Gastroenterology Reason for Consultation Abdominal pain Hx of Present Illness Ms. Khadijah Heredia is a 21-year-old woman that presented to the ED secondary to complaints of epigastric pain and chest pain for the last month. Patient reports symptoms worsened with greasy foods, acidic foods and tomatoes. Patient has tried [id number] antacids without any relief in symptoms. Patient states that epigastric pain lasts for hours and interrupts ADLs. Patient denies nausea, vomiting, melena stools, diarrhea, previous episode, sick contacts, travel outside the [place]. Patient reports history of hypertension and was evaluated for complaints of chest pain at admission. Patient cleared by cardiology. Psychological: nl mood/affect, no complaints Past Medical History Medical History: hypertension Social History Smoking Status: Never smoker Exam/Review of Systems Vital Signs Vitals Vital Signs Date Time Temp Pulse Resp B/P Pulse Ox O2 Delivery O2 Flow Rate FiO2 12/15/16 13:39 2.0 12/15/16 13:36 84 18 95 Nasal Cannula 12/15/16 12:00 98.2 123/59 12/13/16 16:42 21 Intake and Output 12/14/16 12/14/16 12/15/16 15:00 23:00 07:00 Intake Total 850 ml Balance 850 ml Exam Constitutional: alert, oriented, well developed Psych: nl mood/affect Head: normocephalic Eyes: EOMI, nl conjunctiva, nl lids ENMT: nl external ears & nose, nl lips & teeth, nl nasal mucosa & septum Respiratory: clear to auscultation, normal air movement Cardiovascular: regular rate and rhythm Gastrointestinal: soft, epigastric tenderness Musculoskeletal: nl extremities to inspection Neurological: PASTEURIZING SUPERVISOR II-XII intact Results Result Diagram: 12/14/16 0620 12/14/16 0620 Medications Medications Current Medications Lorazepam (Ativan) 0.5 mg Q6H PRN IV ANXIETY; Start 12/13/16 at 12:30 Ondansetron HCl (Zofran Inj) 4 mg Q6H PRN IV NAUSEA AND/OR VOMITING Last administered on 12/15/16 08:45; Admin Dose 4 MG; Start 12/13/16 at 12:30 Acetaminophen (Tylenol Tab) 650 mg Q6H PRN PO PAIN LEVEL 1-3 OR FEVER; Start at 12:30 Acetaminophen/ Hydrocodone Bitart ([place] (5/325)) 1 tab Q6H PRN PO PAIN LEVEL 4 -6; Start 12/13/16 at 12:30 Morphine Sulfate (morphine) 2 mg Q4H PRN IV PAIN LEVEL 7-10 Last administered on 12/15/16 08:46; Admin Dose 2 MG; Start 12/13/16 at 12:30 Magnesium Hydroxide (Milk Of Mag) 30 ml DAILY PRN PO CONSTIPATION; Start at 12:30 Bisacodyl (Dulcolax) 5 mg DAILY PRN PO CONSTIPATION; Start 12/13/16 at 12:30 Famotidine (Pepcid Iv) 20 mg Q12 IV Last administered on 12/15/16 08:45; Admin Dose 20 MG; Start 12/13/16 at 21:00 Enoxaparin Sodium (Lovenox) 40 mg DAILY SC Last administered on 12/15/16 08:47 ; Admin Dose 40 MG; Start 12/14/16 at 09:00 Hydralazine HCl (Apresoline) 10 mg Q6H PRN IV SBP>160; Start 12/13/16 at 12:30 Furosemide (Lasix) 40 mg DAILY IV Last administered on 12/15/16 08:46; Admin Dose 40 MG; Start 12/14/16 at 09:00 Clotrimazole (Lotrimin Cr) 1 applic BID TOP Last administered on 12/15/16 08:54 ; Admin Dose 1 APPLIC; Start 12/14/16 at 09:00 Pantoprazole (Protonix Tab) 40 mg DAILY@06 PO Last administered on 12/15/16 05: 24; Admin Dose 40 MG; Start 12/14/16 at 14:30 ALDO CUMMINS December 15, 2016 15:24
[2016-12-15] MEDS ORDERED: BARIUM SULF 2% 450 ML BTL (BERRY SMOOTHIE) PO ONE (16:30)
--- NOTE | 2016-12-15 16:58 | PN ---
Date/Time of Note Date/Time of Note DATE: 12/15/16 TIME: 16:58 Assessment/Plan VTE Prophylaxis VTE Prophylaxis Intervention: heparin Lines/Catheters IV [facility]from [facility] Saline Lock Assessment/Plan Chief Complaint/Hosp Course 1. Acute respiratory failure. Hypoxic. Most probably secondary to underlying pulmonary vascular congestion. Diastolic heart failure [acute]. Continue inhaled bronchodilators. Continue supplemental oxygen and diuretics. Will involve pulmonary on the case. 2. Abdominal pain with associated nausea and vomiting. Etiology unclear. Gallbladder ultrasound showing hepatosplenomegaly and fatty infiltration of the liver. Will involve gastro-oncology on the case. 3. Morbid obesity. Body mass index of 48.4 kg/meter squared. Weight reduction advised. Get dietary consult. 4. Dyslipidemia with underlying hypertriglyceridemia. Will start the patient on fish oil. 5. Fluids, electrolytes, and nutrition. Low-cholesterol diet. 6. DVT prophylaxis. Subcutaneous Lovenox. 7. Gastrointestinal prophylaxis. Proton pump inhibitors. 8. Plan. Continue proton pump inhibitors. Continue inhaled bronchodilators and Lasix. Obtain pulmonary and gastroenterology consult. Case discussed with Dr. Calderón. The plan of care was explained to the patient's family with the help of a portable sawyer. Problems: Subjective 24 Hr Interval Summary Free Text/Dictation Still complains of epigastric abdominal pain and episodes of nausea and vomiting. Complains of dyspnea at times. Exam/Review of Systems Vital Signs Vitals Vital Signs Date Time Temp Pulse Resp B/P Pulse Ox O2 Delivery O2 Flow Rate FiO2 12/15/16 16:12 98.2 79 16 110/58 96 12/15/16 13:39 2.0 12/15/16 13:36 Nasal Cannula 12/13/16 16:42 21 Intake and Output 12/14/16 12/14/16 12/15/16 15:00 23:00 07:00 Intake Total 850 ml Balance 850 ml Exam GENERAL: This is a morbidly obese female lying in bed in no apparent distress. HEENT: Head normocephalic and atraumatic. Eyes: Anicteric sclerae. Conjunctivae clear. ENT: Nasal septum is midline. Oral mucosa is dry. NECK: Short and obese with increased neck circumference. RESPIRATORY: Bilaterally diminished breath sounds. A few fine crackles heard at the bases. No use of accessory muscles of respiration. CARDIAC: Regular rate and rhythm. S1, S2 heard. ABDOMEN: Soft, nontender and nondistended. Bowel sounds positive in all 4 quadrants. GENITOURINARY: Deferred. EXTREMITIES: No cyanosis, no clubbing, no edema. Peripheral pulses palpable. NEUROLOGIC: The patient is awake, alert and oriented. Cranial nerves are grossly intact. Results Result Diagram: 12/14/16 0620 12/14/16 0620 Medications Medications Current Medications Lorazepam (Ativan) 0.5 mg Q6H PRN IV ANXIETY; Start 12/13/16 at 12:30 Ondansetron HCl (Zofran Inj) 4 mg Q6H PRN IV NAUSEA AND/OR VOMITING Last administered on 12/15/16 08:45; Admin Dose 4 MG; Start 12/13/16 at 12:30 Acetaminophen (Tylenol Tab) 650 mg Q6H PRN PO PAIN LEVEL 1-3 OR FEVER; Start at 12:30 Acetaminophen/ Hydrocodone Bitart ([place] (5/325)) 1 tab Q6H PRN PO PAIN LEVEL 4 -6; Start 12/13/16 at 12:30 Morphine Sulfate (morphine) 2 mg Q4H PRN IV PAIN LEVEL 7-10 Last administered on 12/15/16 08:46; Admin Dose 2 MG; Start 12/13/16 at 12:30 Magnesium Hydroxide (Milk Of Mag) 30 ml DAILY PRN PO CONSTIPATION; Start at 12:30 Bisacodyl (Dulcolax) 5 mg DAILY PRN PO CONSTIPATION; Start 12/13/16 at 12:30 Famotidine (Pepcid Iv) 20 mg Q12 IV Last administered on 12/15/16 08:45; Admin Dose 20 MG; Start 12/13/16 at 21:00 Enoxaparin Sodium (Lovenox) 40 mg DAILY SC Last administered on 12/15/16 08:47 ; Admin Dose 40 MG; Start 12/14/16 at 09:00 Hydralazine HCl (Apresoline) 10 mg Q6H PRN IV SBP>160; Start 12/13/16 at 12:30 Furosemide (Lasix) 40 mg DAILY IV Last administered on 12/15/16 08:46; Admin Dose 40 MG; Start 12/14/16 at 09:00 Clotrimazole (Lotrimin Cr) 1 applic BID TOP Last administered on 12/15/16t 08:54 ; Admin Dose 1 APPLIC; Start 12/14/16 at 09:00 Pantoprazole (Protonix Tab) 40 mg PO ; Start 12/15/16 at 18:00 SHANON DE LUNA NP December 15, 2016 16:58
[2016-12-15] MEDS: FISH OIL 1,000 MG CAP PO SCH (20:55)
--- NOTE | 2016-12-15 23:32 | RADRPT ---
PROCEDURE: CT Abdomen and Pelvis without contrast. CLINICAL INDICATION: Abdominal and pelvic pain. TECHNIQUE: CT scan of the abdomen and pelvis without contrast was performed. Coronal and sagittal reformatted images were obtained from the axial source images. Images were reviewed on a [employer] PACS workstation. Total exam DLP is 1257.04 mGy-cm. CTDIvol is 20.38 mGy. One or more of the following dose reduction techniques were used: Automated exposure control, adjustment of the mA and/ or kV according to patient size, use of iterative reconstruction technique. COMPARISON: None. FINDINGS: There is mild atelectasis at the lung bases posteriorly. The lung bases are otherwise normal. The heart size is normal. There is no pleural effusion or pericardial effusion. The liver is enlarged and diffusely decreased attenuation consistent with fatty metamorphosis. Ther e is no focal hepatic lesion. The gallbladder and bile ducts are normal. The spleen is mildly enlarged. There is no focal splenic lesion. Both adrenals are normal with no enlargement or mass. The pancreas is unremarkable with no mass or evidence of pancreatitis. There is no renal mass or hydronephrosis. There is no renal calculus or ureteral calculus. The abdominal aorta is not dilated. There is no retroperitoneal lymphadenopathy or mass. There is no pelvic lymphadenopathy or mass. The bladder and distal ureters are normal. The appendix is well seen and appears normal. The bowel and mesentery are normal. There is no free fluid or free gas. The osseous structures are unremarkable with no fracture or lytic lesion. IMPRESSION: 1. Mild atelectasis at the lung bases posteriorly. 2. Fatty metamorphosis of the liver. Hepatomegaly. 3. Mild splenomegaly. 4. Normal appendix. 5. No urinary tract calculus or hydronephrosis. 6. Otherwise unremarkable noncontrast CT scan of the abdomen and pelvis. RPTAT: QQ .Rian Thornton MD, MD Date Time Electronically viewed and signed by .Rian Thornton MD, on 12/15/2016 23:31 .R/
[2016-12-16] VITALS (12 sets, daily range): BP systolic 116–142; BP diastolic 55–87; PULSE 76–100; RESP 16–20
[2016-12-16 06:01] LABS: ADD SCAN DIFF NO
[2016-12-16 06:11] LABS: HEMATOCRIT 40.6 % (37.0-47.0); HEMOGLOBIN 12.9 g/dl (12.0-16.0); MEAN CORPUSCULAR HEMOGLOBIN 26.7 pg (29.0-33.0); MEAN CORPUSCULAR HGB CONC 31.8 g/dl (32.0-37.0); MEAN CORPUSCULAR VOLUME 84.1 fl (82.0-101.0); MEAN PLATELET VOLUME 12.2 fl (7.4-10.4); PLATELET COUNT 152 10^3/UL (140-415); RED BLOOD COUNT 4.83 10^6/ul (4.20-5.40); RED CELL DISTRIBUTION WIDTH 16.1 % (11.5-14.5); WHITE BLOOD COUNT 6.6 10^3/ul (4.8-10.8)
[2016-12-16] MEDS: PANTOPRAZOLE (EC) 40 MG TAB PO SCH ×2 (06:26→18:10)
[2016-12-16 06:31] LABS: MAGNESIUM 2.1 mg/dl (1.7-2.5); PHOSPHORUS 4.5 mg/dl (2.5-4.9)
[2016-12-16 07:02] LABS: ALBUMIN 3.6 g/dl (3.3-4.9)
[2016-12-16 07:03] LABS: POTASSIUM 3.6 mmol/L (3.5-5.1)
[2016-12-16 07:05] LABS: BILIRUBIN,INDIRECT 0.4 mg/dl (0-1.1); BILIRUBIN,TOTAL 0.4 mg/dl (0.2-1.3); CREATININE 0.78 mg/dl (0.44-1.00)
[2016-12-16 07:06] LABS: ALBUMIN/GLOBULIN RATIO 0.92; CALCIUM 8.4 mg/dl (8.4-10.2); TOTAL PROTEIN 7.5 g/dl (6.1-8.1)
[2016-12-16] MEDS: ALBUTEROL 0.083% (NEB) 2.5 MG/3 ML AMP HHN SCH ×3 (07:21→21:22)
[2016-12-16] MEDS: FAMOTIDINE 20 MG INJ IV SCH ×2 (08:08→20:39)
[2016-12-16] MEDS: FISH OIL 1,000 MG CAP PO SCH ×2 (08:08→20:39)
[2016-12-16] MEDS: FUROSEMIDE 40 MG INJ IV SCH (08:09)
[2016-12-16] MEDS: ENOXAPARIN 40 MG/0.4 ML SYG SC SCH (08:10)
[2016-12-16] MEDS: CLOTRIMAZOLE 1% 30 GM CR TOP SCH ×2 (08:11→20:39)
[2016-12-16 11:03] LABS: BURR CELLS RARE
[2016-12-16 11:04] LABS: EOSINOPHILS # 0.5 10^3/ul (0.0-0.5); LYMPHOCYTES # 3.2 10^3/ul (0.8-2.9); MONOCYTE # 0.5 10^3/ul (0.3-0.9); NEUTROPHIL # 2.4 10^3/ul (1.6-7.5); POLYCHROMASIA RARE
--- NOTE | 2016-12-16 13:41 | CONS ---
Date/Time of Note Date/Time of Note DATE: 12/16/16 TIME: 13:40 Assessment/Plan Assessment/Plan Chief Complaint/Hosp Course Ms. Khadijah Heredia is a 21-year-old woman that presented to the ED secondary to complaints of epigastric pain and chest pain for the last month. Patient reports symptoms worsened with greasy foods, acidic foods and tomatoes. Patient has tried [id number] antacids without any relief in symptoms. Patient states that epigastric pain lasts for hours and interrupts ADLs. Patient denies nausea, vomiting, melena stools, diarrhea, previous episode, sick contacts, travel outside the [place]. Patient reports history of hypertension and was evaluated for complaints of chest pain at admission. Patient cleared by cardiology. Problems: Additional Assessment/Plan Abdominal pain/Nausea Evaluate GI bleed versus PUD vs other etiology Stool OB, if positive strongly recommend EGD Monitor H&H daily, transfuse 1 unit for hemoglobin less than 7.5, 2 units for hemoglobin less than 7.[address] abdomen Continue PPI twice daily EGD on Saturday with Dr. Cid, pt and mother advised of R/B/A to procedure and provide informed consent to proceed Morbid obesity Management per Primary Encourage weight Check A1c Hepatomegaly/fatty liver Encourage weight loss Hypertension Continue home medication Management per primary Further recommendations depend on clinical course Patient seen in collaboration with Dr. Cid Consultation Date/Type/Reason Admit Date/Time December 13, 2016 at 09:30 Initial Consult Date Type of Consultation: Gastroenterology 24 HR Interval Summary Free Text/Dictation Patient tolerating clears Patient and mother consents to EGD tomorrow with Dr. Cid Exam/Review of Systems Vital Signs Vitals Vital Signs Date Time Temp Pulse Resp B/P Pulse Ox O2 Delivery O2 Flow Rate FiO2 12/16/16 12:18 87 12/16/16 12:11 98.5 16 119/69 96 12/16/16 07:25 Nasal Cannula 1.5 12/15/16 21:09 27 Intake and Output 12/15/16 12/15/16 12/16/16 15:00 23:00 07:00 Intake Total 650 ml 300 ml Balance 650 ml 300 ml Exam Constitutional: alert, oriented, well developed Psych: nl mood/affect Head: normocephalic Eyes: EOMI, nl conjunctiva, nl lids ENMT: nl external ears & nose, nl lips & teeth, nl nasal mucosa & septum Respiratory: clear to auscultation, normal air movement Cardiovascular: regular rate and rhythm Gastrointestinal: soft, epigastric tenderness Musculoskeletal: nl extremities to inspection Neurological: STRAPPER OPERATOR II-XII intact Results Result Diagram: 12/16/16 0555 12/16/16 0555 Results 24 hrs Laboratory Tests Test 12/15/16 18:29 12/16/16 05:55 Hemoglobin A1c 5.5 White Blood Count 6.6 Red Blood Count 4.83 Hemoglobin 12.9 Hematocrit 40.6 Mean Corpuscular Volume 84.1 Mean Corpuscular Hemoglobin 26.7 L Mean Corpuscular Hemoglobin Concent 31.8 L Red Cell Distribution Width 16.1 H Platelet Count 152 Mean Platelet Volume 12.2 H Neutrophils % 36.0 L Lymphocytes % 48.0 Monocytes % 8.0 Eosinophils % 7.0 Basophils % Metamyelocytes % 1.0 H Nucleated Red Blood Cells % Neutrophils # 2.4 Lymphocytes # 3.2 H Monocytes # 0.5 Eosinophils # 0.5 Basophils # Metamyelocytes # 0.1 Nucleated Red Blood Cells # Differential Comment MANUAL DIFF Large Platelets OCCASIONAL Polychromasia RARE Sodium Level 139 Potassium Level 3.6 Chloride Level 100 Carbon Dioxide Level 27 Anion Gap 16 # Blood Urea Nitrogen 10 Creatinine 0.78 Glucose Level 100 Calcium Level 8.4 Phosphorus Level 4.5 Magnesium Level 2.1 Total Bilirubin 0.4 Direct Bilirubin 0.00 Indirect Bilirubin 0.4 Aspartate Amino Transf (AST/SGOT) 91 H Alanine Aminotransferase (ALT/SGPT) 56 Alkaline Phosphatase 63 Total Protein 7.5 Albumin 3.6 Globulin 3.90 H Albumin/Globulin Ratio 0.92 Medications Medications Current Medications Lorazepam (Ativan) 0.5 mg Q6H PRN IV ANXIETY; Start 12/13/16 at 12:30 Ondansetron HCl (Zofran Inj) 4 mg Q6H PRN IV NAUSEA AND/OR VOMITING Last administered on 12/15/16 08:45; Admin Dose 4 MG; Start 12/13/16 at 12:30 Acetaminophen (Tylenol Tab) 650 mg Q6H PRN PO PAIN LEVEL 1-3 OR FEVER; Start at 12:30 Acetaminophen/ Hydrocodone Bitart ([place] (5/325)) 1 tab Q6H PRN PO PAIN LEVEL 4 -6; Start 12/13/16 at 12:30 Morphine Sulfate (morphine) 2 mg Q4H PRN IV PAIN LEVEL 7-10 Last administered on 12/15/16 08:46; Admin Dose 2 MG; Start 12/13/16 at 12:30 Magnesium Hydroxide (Milk Of Mag) 30 ml DAILY PRN PO CONSTIPATION; Start at 12:30 Bisacodyl (Dulcolax) 5 mg DAILY PRN PO CONSTIPATION; Start 12/13/16 at 12:30 Famotidine (Pepcid Iv) 20 mg Q12 IV Last administered on 12/16/16 08:08; Admin Dose 20 MG; Start 12/13/16 at 21:00 Enoxaparin Sodium (Lovenox) 40 mg DAILY SC Last administered on 12/16/16 08:10 ; Admin Dose 40 MG; Start 12/14/16 at 09:00 Hydralazine HCl (Apresoline) 10 mg Q6H PRN IV SBP>160; Start 12/13/16 at 12:30 Furosemide (Lasix) 40 mg DAILY IV Last administered on 12/16/16 08:09; Admin Dose 40 MG; Start 12/14/16 at 09:00 Clotrimazole (Lotrimin Cr) 1 applic BID TOP Last administered on 12/16/16 08:11 ; Admin Dose 1 APPLIC; Start 12/14/16 at 09:00 Pantoprazole (Protonix Tab) 40 mg 06,18 PO Last administered on 12/16/16 06:26 ; Admin Dose 40 MG; Start 12/15/16 at 18:00 Fish Oil (Fish Oil) 1,000 mg BID PO Last administered on 12/16/16 08:08; Admin Dose 1,000 MG; Start 12/15/16 at 21:00 ALDO CUMMINS December 16, 2016 13:41
--- NOTE | 2016-12-16 14:21 | PN ---
Date/Time of Note Date/Time of Note DATE: 12/16/16 TIME: 14:21 Assessment/Plan VTE Prophylaxis VTE Prophylaxis Intervention: LMWH Lines/Catheters [facility] Saline [facility] Assessment/Plan Chief Complaint/Hosp Course 1. Acute respiratory failure. Hypoxic. Most probably secondary to underlying pulmonary vascular congestion. Diastolic heart failure [acute]. Continue inhaled bronchodilators. Continue supplemental oxygen and diuretics. Status post pulmonary evaluation. The patient also probably has obesity hypoventilation syndrome. 2. Abdominal pain with associated nausea and vomiting. Etiology unclear. Gallbladder ultrasound showing hepatosplenomegaly and fatty infiltration of the liver. Gastroenterology on the case. Plan for esophagogastroduodenoscopy on 12/17/2016. 3. Morbid obesity. Body mass index of 48.4 kg/meter squared. Weight reduction advised. Get dietary consult. 4. Dyslipidemia with underlying hypertriglyceridemia. Will continue the patient on fish oil. 5. Fluids, electrolytes, and nutrition. Low-cholesterol diet. 6. DVT prophylaxis. Subcutaneous Lovenox. 7. Gastrointestinal prophylaxis. Proton pump inhibitors. 8. Plan. Continue proton pump inhibitors. Continue inhaled bronchodilators and Lasix. Await esophagogastroduodenoscopy. Case discussed with Dr. Calderón. The plan of care was explained to the patient's family with the help of a retail planning manager. Problems: Subjective 24 Hr Interval Summary Free Text/Dictation Denies any abdominal pain. Denies any dyspnea. Exam/Review of Systems Vital Signs Vitals Vital Signs Date Time Temp Pulse Resp B/P Pulse Ox O2 Delivery O2 Flow Rate FiO2 12/16/16 13:36 101 20 97 Nasal Cannula 1.5 12/16/16 12:11 98.5 119/69 12/15/16 21:09 27 Intake and Output 12/15/16 12/15/16 12/16/16 15:00 23:00 07:00 Intake Total 650 ml 300 ml Balance 650 ml 300 ml Exam GENERAL: This is a morbidly obese female lying in bed in no apparent distress. HEENT: Head normocephalic and atraumatic. Eyes: Anicteric sclerae. Conjunctivae clear. ENT: Nasal septum is midline. Oral mucosa is dry. NECK: Short and obese with increased neck circumference. RESPIRATORY: Bilaterally diminished breath sounds. No use of accessory muscles of respiration. CARDIAC: Regular rate and rhythm. S1, S2 heard. ABDOMEN: Soft, nontender and nondistended. Bowel sounds positive in all 4 quadrants. GENITOURINARY: Deferred. EXTREMITIES: No cyanosis, no clubbing, no edema. Peripheral pulses palpable. NEUROLOGIC: The patient is awake, alert and oriented. Cranial nerves are grossly intact. Results Result Diagram: 12/16/16 0555 12/16/16 0555 Results 24 hrs Laboratory Tests Test 12/15/16 18:29 12/16/16 05:55 Hemoglobin A1c 5.5 White Blood Count 6.6 Red Blood Count 4.83 Hemoglobin 12.9 Hematocrit 40.6 Mean Corpuscular Volume 84.1 Mean Corpuscular Hemoglobin 26.7 L Mean Corpuscular Hemoglobin Concent 31.8 L Red Cell Distribution Width 16.1 H Platelet Count 152 Mean Platelet Volume 12.2 H Neutrophils % 36.0 L Lymphocytes % 48.0 Monocytes % 8.0 Eosinophils % 7.0 Basophils % Metamyelocytes % 1.0 H Nucleated Red Blood Cells % Neutrophils # 2.4 Lymphocytes # 3.2 H Monocytes # 0.5 Eosinophils # 0.5 Basophils # Metamyelocytes # 0.1 Nucleated Red Blood Cells # Differential Comment MANUAL DIFF Large Platelets OCCASIONAL Polychromasia RARE Sodium Level 139 Potassium Level 3.6 Chloride Level 100 Carbon Dioxide Level 27 Anion Gap 16 # Blood Urea Nitrogen 10 Creatinine 0.78 Glucose Level 100 Calcium Level 8.4 Phosphorus Level 4.5 Magnesium Level 2.1 Total Bilirubin 0.4 Direct Bilirubin 0.00 Indirect Bilirubin 0.4 Aspartate Amino Transf (AST/SGOT) 91 H Alanine Aminotransferase (ALT/SGPT) 56 Alkaline Phosphatase 63 Total Protein 7.5 Albumin 3.6 Globulin 3.90 H Albumin/Globulin Ratio 0.92 Medications Medications Current Medications Lorazepam (Ativan) 0.5 mg Q6H PRN IV ANXIETY; Start 12/13/16 at 12:30 Ondansetron HCl (Zofran Inj) 4 mg Q6H PRN IV NAUSEA AND/OR VOMITING Last administered on 12/15/16t 08:45; Admin Dose 4 MG; Start 12/13/16 at 12:30 Acetaminophen (Tylenol Tab) 650 mg Q6H PRN PO PAIN LEVEL 1-3 OR FEVER; Start at 12:30 Acetaminophen/ Hydrocodone Bitart ([place] (5/325)) 1 tab Q6H PRN PO PAIN LEVEL 4 -6; Start 12/13/16 at 12:30 Morphine Sulfate (morphine) 2 mg Q4H PRN IV PAIN LEVEL 7-10 Last administered on 12/15/16 08:46; Admin Dose 2 MG; Start 12/13/16 at 12:30 Magnesium Hydroxide (Milk Of Mag) 30 ml DAILY PRN PO CONSTIPATION; Start at 12:30 Bisacodyl (Dulcolax) 5 mg DAILY PRN PO CONSTIPATION; Start 12/13/16 at 12:30 Famotidine (Pepcid Iv) 20 mg Q12 IV Last administered on 12/16/16 08:08; Admin Dose 20 MG; Start 12/13/16 at 21:00 Enoxaparin Sodium (Lovenox) 40 mg DAILY SC Last administered on 12/16/16 08:10 ; Admin Dose 40 MG; Start 12/14/16 at 09:00 Hydralazine HCl (Apresoline) 10 mg Q6H PRN IV SBP>160; Start 12/13/16 at 12:30 Furosemide (Lasix) 40 mg DAILY IV Last administered on 12/16/16 08:09; Admin Dose 40 MG; Start 12/14/16 at 09:00 Clotrimazole (Lotrimin Cr) 1 applic BID TOP Last administered on 12/16/16 08:11 ; Admin Dose 1 APPLIC; Start 12/14/16 at 09:00 Pantoprazole (Protonix Tab) 40 mg 06,18 PO Last administered on 12/16/16 06:26 ; Admin Dose 40 MG; Start 12/15/16 at 18:00 Fish Oil (Fish Oil) 1,000 mg BID PO Last administered on 12/16/16 08:08; Admin Dose 1,000 MG; Start 12/15/16 at 21:00 SHANON DE LUNA NP December 16, 2016 14:21
--- NOTE | 2016-12-16 14:43 | CONS ---
DATE OF ADMISSION: 12/13/2016 DATE OF CONSULTATION: 12/16/2016 TYPE OF CONSULTATION: Pulmonary. REASON FOR CONSULTATION: Shortness of breath. Thank you, Dr. Calderón, for this consultation. HISTORY OF PRESENT ILLNESS: This is a 21-year-old lady originally admitted on 12/13/2016 with epiga stric pain, nausea, vomiting and shortness of breath, found to have significant hypoxemia. Chest x- ray demonstrated low lung volumes. She had a CT angiogram which showed increased vascular congestio n but no pulmonary embolus. Upon further questioning, the patient states she has lost some weight t he last 6 months, although still has exertional dyspnea. Echocardiogram was performed on admission, demonstrated preserved ejection fraction with no evidence of pulmonary hypertension. Currently, sh martha is being worked up for this epigastric pain is pending endoscopy tomorrow. PAST MEDICAL HISTORY: As above. MEDICATIONS: Per chart. ALLERGIES: NONE. SOCIAL HISTORY: Nonsmoker, no alcohol, no history of drug use. FAMILY HISTORY: Noncontributory. SYSTEMS REVIEW: A 14-point review of systems was negative other than that mentioned above. PHYSICAL EXAMINATION: GENERAL: Moderately obese lady, awake, alert, oriented, comfortable at rest, talking in fu ll and complete sentences. VITAL SIGNS: Temperature 98, pulse 100, blood pressure 119/69, O2 saturation 96% on 1.5 L nasal can nula. NECK: Supple. No JVD or lymphadenopathy. CARDIAC: S1, S2, no added sounds or murmurs. CHEST: Diminished air entry bilaterally. ABDOMEN: Soft, nontender. No guarding or rebound, obese. EXTREMITIES: No cyanosis, clubbing, edema. NEUROLOGIC: Generalized weakness. LABORATORIES: White count 6.6, hemoglobin 12.9, platelets of 152. Chemistry within normal limits. PaO2 was 83 on 2 L nasal cannula. IMPRESSION AND PLAN: Hypoxemia, likely secondary to alveolar hypoventilation from significant morbi d obesity. She will need incentive spirometry, supplemental O2 post-sedation for endoscopy. Post-p rocedure she should be encouraged to ambulate as much as possible. I have encouraged continued weig ht loss. Currently, no evidence of pulmonary embolism or pulmonary hypertension. Dictated By: ARCHIE ODONNELL MD SV/DAVID Conf#: [id number] DID#: [id number]
[2016-12-17] VITALS (27 sets, daily range): BP systolic 116–154; BP diastolic 58–80; PULSE 79–101; RESP 13–24
[2016-12-17] MEDS: PANTOPRAZOLE (EC) 40 MG TAB PO SCH ×2 (06:31→20:08)
[2016-12-17 07:14] LABS: ADD SCAN DIFF NO
[2016-12-17 07:19] LABS: ABNORMAL IP MESSAGE 1; BASOPHILS % 0.7 % (0.0-2.0); EOSINOPHILS # 0.3 10^3/ul (0.0-0.5); EOSINOPHILS % 6.1 % (0.0-7.0); HEMATOCRIT 40.9 % (37.0-47.0); HEMOGLOBIN 13.3 g/dl (12.0-16.0); MEAN CORPUSCULAR HEMOGLOBIN 26.7 pg (29.0-33.0); MEAN CORPUSCULAR HGB CONC 32.5 g/dl (32.0-37.0); MEAN PLATELET VOLUME 13.1 fl (7.4-10.4); MONOCYTE # 0.5 10^3/ul (0.3-0.9); MONOCYTES % 8.3 % (0.0-11.0); NEUTROPHIL # 1.6 10^3/ul (1.6-7.5); NEUTROPHILS % 30.1 % (39.0-77.0); PLATELET COUNT 164 10^3/UL (140-415); RED BLOOD COUNT 4.99 10^6/ul (4.20-5.40); RED CELL DISTRIBUTION WIDTH 15.7 % (11.5-14.5); WHITE BLOOD COUNT 5.4 10^3/ul (4.8-10.8)
[2016-12-17 07:23] LABS: LYMPHOCYTES % 54.4 % (15.0-51.0)
[2016-12-17 07:37] LABS: INR 1.01; PROTIME 13.3 Sec (12.2-14.2)
[2016-12-17 07:38] LABS: PARTIAL THROMBOPLASTIN TIME 30.2 Sec (25.0-35.0)
[2016-12-17 07:39] LABS: CALCIUM 8.9 mg/dl (8.4-10.2); CREATININE 0.71 mg/dl (0.44-1.00); POTASSIUM 3.5 mmol/L (3.5-5.1)
[2016-12-17 07:40] LABS: MAGNESIUM 2.2 mg/dl (1.7-2.5); PHOSPHORUS 4.4 mg/dl (2.5-4.9)
[2016-12-17] MEDS: ALBUTEROL 0.083% (NEB) 2.5 MG/3 ML AMP HHN SCH ×3 (08:10→19:50)
[2016-12-17] MEDS: FAMOTIDINE 20 MG INJ IV SCH (08:36)
[2016-12-17] MEDS: FUROSEMIDE 40 MG INJ IV SCH (08:36)
[2016-12-17] MEDS: FISH OIL 1,000 MG CAP PO SCH ×2 (08:38→20:08)
[2016-12-17] MEDS: ENOXAPARIN 40 MG/0.4 ML SYG SC SCH (08:38)
[2016-12-17] MEDS: CLOTRIMAZOLE 1% 30 GM CR TOP SCH ×2 (08:39→20:08)
--- NOTE | 2016-12-17 10:08 | PN ---
Date/Time of Note Date/Time of Note DATE: 12/17/16 TIME: 10:02 Assessment/Plan VTE Prophylaxis VTE Prophylaxis Intervention: LMWH Lines/Catheters IV [facility]from [facility] Saline Lock Assessment/Plan Chief Complaint/Hosp Course Assessment and plan 1. Acute respiratory failure. Hypoxia. Likely with underlying obesity hypoventilation syndrome. Weight reduction was advised. Titrate off O2 as tolerated. Bronchodilators as needed as well. Flight Crew Time Clerk following. 2. Abdominal pain. Patient did report having some abdominal pain with nausea and vomiting. Etiology unclear. Abdominal imaging only showed fatty metamorphosis of the liver and mild splenomegaly but otherwise was reported to be unremarkable. Tentative plan for EGD on December 2016. Will follow up with results 3. Morbid obesity. Patient noted with BMI of 48.4 kg/m. Weight reduction advised. Patient was seen by dietary consult 4. Dyslipidemia. Continue on fish oil. Patient advised for weight reduction and lifestyle modifications DVT prophylaxis: Lovenox Disposition and plan: Tentative plan for EGD. Will follow up with results. Disposition discussed plan of care with Dr. Maciel Problems: Subjective 24 Hr Interval Summary Free Text/Dictation No shortness of breath. Denies any abdominal pain at this time. Appears comfortable. Family at bedside. Exam/Review of Systems Vital Signs Vitals Vital Signs Date Time Temp Pulse Resp B/P Pulse Ox O2 Delivery O2 Flow Rate FiO2 12/17/16 08:10 83 20 99 Nasal Cannula 2.0 12/17/16 07:39 98.2 120/62 12/15/16 21:09 27 Intake and Output 12/16/16 12/16/16 12/17/16 15:00 23:00 07:00 Intake Total 1280 ml 250 ml Balance 1280 ml 250 ml Exam Constitutional: alert, oriented, other (Morbidly obese) Psych: nl mood/affect Head: normocephalic Neck: supple Respiratory: clear to auscultation, normal air movement Cardiovascular: regular rate and rhythm Gastrointestinal: non-tender, soft Musculoskeletal: nl extremities to inspection Extremities: normal pulses Neurological: PHYSICIANS AND SURGEONS II-XII intact, nl mental status, nl speech Skin: nl turgor Results Result Diagram: 12/17/16 0600 12/17/16 0600 Results 24 hrs Laboratory Tests Test 12/17/16 06:00 White Blood Count 5.4 Red Blood Count 4.99 Hemoglobin 13.3 Hematocrit 40.9 Mean Corpuscular Volume 82.0 Mean Corpuscular Hemoglobin 26.7 L Mean Corpuscular Hemoglobin Concent 32.5 Red Cell Distribution Width 15.7 H Platelet Count 164 Mean Platelet Volume 13.1 H Neutrophils % 30.1 L Lymphocytes % 54.4 H Monocytes % 8.3 Eosinophils % 6.1 Basophils % 0.7 Nucleated Red Blood Cells % 0.0 Neutrophils # 1.6 Lymphocytes # 3.0 H Monocytes # 0.5 Eosinophils # 0.3 Basophils # 0.0 Nucleated Red Blood Cells # 0.0 Prothrombin Time 13.3 Prothrombin Time Ratio 1.0 INR International Normalized Ratio 1.01 Activated Partial Thromboplast Time 30.2 Sodium Level 138 Potassium Level 3.5 Chloride Level 102 Carbon Dioxide Level 27 Anion Gap 13 Blood Urea Nitrogen 9 Creatinine 0.71 Glucose Level 94 Calcium Level 8.9 Phosphorus Level 4.4 Magnesium Level 2.2 Medications Medications Current Medications Lorazepam (Ativan) 0.5 mg Q6H PRN IV ANXIETY; Start 12/13/16 at 12:30 Ondansetron HCl (Zofran Inj) 4 mg Q6H PRN IV NAUSEA AND/OR VOMITING Last administered on 12/15/16 08:45; Admin Dose 4 MG; Start 12/13/16 at 12:30 Acetaminophen (Tylenol Tab) 650 mg Q6H PRN PO PAIN LEVEL 1-3 OR FEVER; Start at 12:30 Acetaminophen/ Hydrocodone Bitart ([place] (5/325)) 1 tab Q6H PRN PO PAIN LEVEL 4 -6; Start 12/13/16 at 12:30 Morphine Sulfate (morphine) 2 mg Q4H PRN IV PAIN LEVEL 7-10 Last administered on 12/15/16 08:46; Admin Dose 2 MG; Start 12/13/16 at 12:30 Magnesium Hydroxide (Milk Of Mag) 30 ml DAILY PRN PO CONSTIPATION; Start at 12:30 Bisacodyl (Dulcolax) 5 mg DAILY PRN PO CONSTIPATION; Start 12/13/16 at 12:30 Famotidine (Pepcid Iv) 20 mg Q12 IV Last administered on 12/17/16 08:36; Admin Dose 20 MG; Start 12/13/16 at 21:00 Enoxaparin Sodium (Lovenox) 40 mg DAILY SC Last administered on 12/17/16 08:38 ; Admin Dose 40 MG; Start 12/14/16 at 09:00 Hydralazine HCl (Apresoline) 10 mg Q6H PRN IV SBP>160; Start 12/13/16 at 12:30 Furosemide (Lasix) 40 mg DAILY IV Last administered on 12/17/16 08:36; Admin Dose 40 MG; Start 12/14/16 at 09:00 Clotrimazole (Lotrimin Cr) 1 applic BID TOP Last administered on 12/17/16 08:39 ; Admin Dose 1 APPLIC; Start 12/14/16 at 09:00 Pantoprazole (Protonix Tab) 40 mg 06,18 PO Last administered on 12/17/16 06:31 ; Admin Dose 40 MG; Start 12/15/16 at 18:00 Fish Oil (Fish Oil) 1,000 mg BID PO Last administered on 12/16/16 20:39; Admin Dose 1,000 MG; Start 12/15/16 at 21:00 SERAFIN ANTONIO December 17, 2016 10:08
--- NOTE | 2016-12-17 10:29 | CONS ---
Date/Time of Note Date/Time of Note DATE: 12/17/16 TIME: 10:28 Assessment/Plan Assessment/Plan Additional Assessment/Plan Assessment recommendations; 1. Patient admitted with epigastric pain etiology is unclear possibly gastritis. 2. Short of breath likely from upper abdominal discomfort. No evidence of any acute cardiopulmonary pathology at this time. Continue current treatment. Patient is currently scheduled for EGD today. Consultation Date/Type/Reason Admit Date/Time December 13, 2016 at 09:30 Initial Consult Date Type of Consultation: Pulmonary 24 HR Interval Summary Free Text/Dictation Condition is stable. Denies any shortness of breath, cough, wheezing. Still complains of mild epigastric pain. Denies any nausea vomiting. General exam; young girl, awake alert currently in no distress. Exam/Review of Systems Vital Signs Vitals Vital Signs Date Time Temp Pulse Resp B/P Pulse Ox O2 Delivery O2 Flow Rate FiO2 12/17/16 08:10 83 20 99 Nasal Cannula 2.0 12/17/16 07:39 98.2 120/62 12/15/16 21:09 27 Intake and Output 12/16/16 12/16/16 12/17/16 15:00 23:00 07:00 Intake Total 1280 ml 250 ml Balance 1280 ml 250 ml Exam HEENT exam is; supple neck, no JVD. No lymphadenopathy. Midline trachea. No thyromegaly. Pharynx is clear. Patient has good dentition. Chest examination; clear to auscultation. S1-S2 audible, no murmurs. Regular rhythm. Abdomen examination; there is mild epigastric tenderness. Bowel sounds audible. No organomegaly. Extremity examination; no peripheral edema. EQUIPMENT MAINTENANCE SUPERINTENDENT examination; no focal deficit. Results Result Diagram: 12/17/16 0600 12/17/16 0600 Results 24 hrs Laboratory Tests Test 12/17/16 06:00 White Blood Count 5.4 Red Blood Count 4.99 Hemoglobin 13.3 Hematocrit 40.9 Mean Corpuscular Volume 82.0 Mean Corpuscular Hemoglobin 26.7 L Mean Corpuscular Hemoglobin Concent 32.5 Red Cell Distribution Width 15.7 H Platelet Count 164 Mean Platelet Volume 13.1 H Neutrophils % 30.1 L Lymphocytes % 54.4 H Monocytes % 8.3 Eosinophils % 6.1 Basophils % 0.7 Nucleated Red Blood Cells % 0.0 Neutrophils # 1.6 Lymphocytes # 3.0 H Monocytes # 0.5 Eosinophils # 0.3 Basophils # 0.0 Nucleated Red Blood Cells # 0.0 Prothrombin Time 13.3 Prothrombin Time Ratio 1.0 INR International Normalized Ratio 1.01 Activated Partial Thromboplast Time 30.2 Sodium Level 138 Potassium Level 3.5 Chloride Level 102 Carbon Dioxide Level 27 Anion Gap 13 Blood Urea Nitrogen 9 Creatinine 0.71 Glucose Level 94 Calcium Level 8.9 Phosphorus Level 4.4 Magnesium Level 2.2 Medications Medications Current Medications Lorazepam (Ativan) 0.5 mg Q6H PRN IV ANXIETY; Start 12/13/16 at 12:30 Ondansetron HCl (Zofran Inj) 4 mg Q6H PRN IV NAUSEA AND/OR VOMITING Last administered on 12/15/16 08:45; Admin Dose 4 MG; Start 12/13/16 at 12:30 Acetaminophen (Tylenol Tab) 650 mg Q6H PRN PO PAIN LEVEL 1-3 OR FEVER; Start at 12:30 Acetaminophen/ Hydrocodone Bitart ([place] (5/325)) 1 tab Q6H PRN PO PAIN LEVEL 4 -6; Start 12/13/16 at 12:30 Morphine Sulfate (morphine) 2 mg Q4H PRN IV PAIN LEVEL 7-10 Last administered on 12/15/16 08:46; Admin Dose 2 MG; Start 12/13/16 at 12:30 Magnesium Hydroxide (Milk Of Mag) 30 ml DAILY PRN PO CONSTIPATION; Start at 12:30 Bisacodyl (Dulcolax) 5 mg DAILY PRN PO CONSTIPATION; Start 12/13/16 at 12:30 Famotidine (Pepcid Iv) 20 mg Q12 IV Last administered on 12/17/16 08:36; Admin Dose 20 MG; Start 12/13/16 at 21:00 Enoxaparin Sodium (Lovenox) 40 mg DAILY SC Last administered on 12/17/16 08:38 ; Admin Dose 40 MG; Start 12/14/16 at 09:00 Hydralazine HCl (Apresoline) 10 mg Q6H PRN IV SBP>160; Start 12/13/16 at 12:30 Furosemide (Lasix) 40 mg DAILY IV Last administered on 12/17/16 08:36; Admin Dose 40 MG; Start 12/14/16 at 09:00 Clotrimazole (Lotrimin Cr) 1 applic BID TOP Last administered on 12/17/16 08:39 ; Admin Dose 1 APPLIC; Start 12/14/16 at 09:00 Pantoprazole (Protonix Tab) 40 mg 06,18 PO Last administered on 12/17/16 06:31 ; Admin Dose 40 MG; Start 12/15/16 at 18:00 Fish Oil (Fish Oil) 1,000 mg BID PO Last administered on 12/16/16 20:39; Admin Dose 1,000 MG; Start 12/15/16 at 21:00 DUNCAN AMADOR December 17, 2016 10:29
[2016-12-17] MEDS: morphine 2 MG INJ IV PRN (11:37)
[2016-12-17] MEDS ORDERED: PROPOFOL 20 ML ONE (18:09)
[2016-12-17] MEDS: SUCRALFATE 1 GM TAB PO SCH ×2 (20:08→21:48)
[2016-12-18] VITALS (8 sets, daily range): BP systolic 117–125; BP diastolic 57–65; PULSE 82–93; RESP 17–19
[2016-12-18] MEDS: PANTOPRAZOLE (EC) 40 MG TAB PO SCH (06:25)
[2016-12-18] MEDS: ALBUTEROL 0.083% (NEB) 2.5 MG/3 ML AMP HHN SCH ×2 (08:25→14:00)
[2016-12-18] MEDS: SUCRALFATE 1 GM TAB PO SCH ×2 (08:33→13:09)
[2016-12-18] MEDS: FUROSEMIDE 40 MG INJ IV SCH (08:33)
[2016-12-18] MEDS: CLOTRIMAZOLE 1% 30 GM CR TOP SCH (08:33)
[2016-12-18] MEDS: FISH OIL 1,000 MG CAP PO SCH (08:33)
[2016-12-18] MEDS: ENOXAPARIN 40 MG/0.4 ML SYG SC SCH (08:38)
[2016-12-18] MEDS ORDERED: SUCR1TAB27 PO (10:31)
[2016-12-18] MEDS ORDERED: PANT40TA4 PO (10:31)
[2016-12-18] MEDS ORDERED: CLO15CR1 TOP (10:31)
[2016-12-18] MEDS ORDERED: OMEG1CAP55 PO (10:31)
[2016-12-18] MEDS ORDERED: ALBU18HF INHALATION (10:31)
--- NOTE | 2016-12-18 10:39 | PDOCDIS ---
Discharge Instructions DIAGNOSIS Discharge Diagnosis: 1. Acute respiratory failure suspect underlying obesity hypoventilation CONDITION Patient Condition: Stable HOME CARE INSTRUCTIONS: Diet Instructions: Reduced CalorieSpecial Diet: Low Chol/Low Fat FOLLOW UP/APPOINTMENTS Appointments 1. Follow-up with your primary care provider within a week SERAFIN ANTONIO December 18, 2016 10:39
--- NOTE | 2016-12-18 11:02 | GILP ---
DATE OF PROCEDURE: NAME OF PROCEDURE: Esophagogastroduodenoscopy with biopsies. SURGEON: Tavo Cid MD. PREOPERATIVE DIAGNOSIS: POSTOPERATIVE DIAGNOSIS: DESCRIPTION OF PROCEDURE: BRIEF HISTORY AND INDICATIONS: The patient is being evaluated for severe abdominal pain requiring h ospitalization. PREMEDICATION: Monitored anesthesia care by anesthesiologist. INSTRUMENT USED: Olympus panendoscope. TECHNIQUE: After informed consent, with the patient/relatives understanding the procedure, its indic ations, potential risks and complications, including but not limited to: allergic reaction, bleeding , perforation or infection, and after all pertinent questions were answered to the patients satisfac tion, the patient/relatives signed witnessed informed consent. Following this, premedication was administered slowly IV push under careful cardiovascular and respi ratory monitoring with pulse oximetry, automatic blood pressure and scale reclamation tender. Once the sedative effect was achieved the patient was place in the left lateral decubitus, the panen doscope was introduced and advanced under visual control. Careful examination of the upper gastrointestinal tract, both on insertion as well as withdrawal of the instrument disclosed the following findings: ESOPHAGUS: The distal esophagus shows erythema and edema of the mucosa as well as superficial erosi on at the EG junction. STOMACH: Upon entrance to the stomach air was insufflated, the gastric rivera distended normally. T he mucosa of the fundus, body and antrum of the stomach was carefully examined and it shows erythema and edema of the mucosa of a moderate degree. Biopsies were obtained to rule out H. pylori infecti on. PYLORUS: The pylorus appears patent and within normal limits, with no evidence of gastric outlet ob struction. DUODENUM: The duodenal mucosa was carefully examined in the duodenal bulb as well as the second port ion of the duodenum and appears unremarkable with no evidence of duodenitis, ulcer or neoplasm. The instrument was then withdrawn, the patient tolerated the procedure well and was transfer out of the endoscopy suite awake, and in good condition to continue recovery under observation IMPRESSION: 1. Moderate erosive esophagitis. 2. Moderate to severe gastritis, rule out Helicobacter pylori infection, biopsies obtained. PLAN: The patient will be continued on present regimen with PPI. Carafate will be added to her reg imen. Pathology will be reviewed as soon as available. Further recommendations will depend on the patient's clinical course as well as review of biopsies. Dictated By: TAVO CID MS/DAVID Conf#: [id number] DID#: [id number] CC: Tavo Cid;*[facility]*
== END 2016-12-18 15:06 | disposition home or self-care (01) | DRG 189 ==
LOC: FTE 22:21 → MS4 12-13 09:30
PROVIDERS: ADMIT Family Medicine; ATTEND Family Medicine
PROC: 0DB78ZX Excision of Stomach, Pylorus, Via Natural or Artificial Opening Endoscopic, Diagnostic (ICD-10-PCS; principal; 2016-12-17 20:30)
DX: J96.01 Acute respiratory failure with hypoxia (principal); I50.31 Acute diastolic (congestive) heart failure; J81.0 Acute pulmonary edema; E66.2 Morbid (severe) obesity with alveolar hypoventilation; Z68.42 Body mass index [BMI] 45.0-49.9, adult; K22.10 Ulcer of esophagus without bleeding; K76.0 Fatty (change of) liver, not elsewhere classified; K29.70 Gastritis, unspecified, without bleeding; R16.2 Hepatomegaly with splenomegaly, not elsewhere classified; R11.2 Nausea with vomiting, unspecified; K59.00 Constipation, unspecified; I11.0 Hypertensive heart disease with heart failure; E78.5 Hyperlipidemia, unspecified; E78.1 Pure hyperglyceridemia
CPT/HCPCS: 36415; 36600; 71010; 71275; 74176; 76705; 80048; 80053; 80061; 81003; 82270; 82550; 82553; 82803; 83036; 83690; 83735; 83880; 84100; 84439; 84443; 84484; 84703; 85025; 85610; 85730; 88305; 88312; 93005; 93306; 93970; 94640; 94664; 96374; 96375; J1650; J1940; J2270; J2405; J7030; Q9967

== ENCOUNTER 2017-05-05 19:36 | Emergency (ER) | payer SELFPAY ==
[~2017-05-05] VITALS: Ht 170.2 cm; Wt 133.0 kg
[~2017-05-05 19:36] MED LIST: ALBU18HF INHALATION; CLO15CR1 TOP; HYDR-906 PO; MAG-19 PO; OMEG1CAP55 PO; ONDA4TAB14 PO; PANT40TA4 PO; SUCR1TAB27 PO
[2017-05-05 19:42] VITALS: Ht 170.2 cm; Wt 133.0 kg
[2017-05-05] MEDS ORDERED: ACETAMINOPHEN 325 MG TAB PO STA (20:12)
[2017-05-05 20:43] LABS: BASOPHILS % 0.3 % (0.0-2.0); EOSINOPHILS # 0.4 10^3/ul (0.0-0.5); EOSINOPHILS % 3.1 % (0.0-7.0); HEMATOCRIT 38.5 % (37.0-47.0); LYMPHOCYTES # 3.1 10^3/ul (0.8-2.9); LYMPHOCYTES % 26.5 % (15.0-51.0); MEAN CORPUSCULAR HEMOGLOBIN 28.3 pg (29.0-33.0); MEAN CORPUSCULAR HGB CONC 33.8 g/dl (32.0-37.0); MEAN CORPUSCULAR VOLUME 83.9 fl (82.0-101.0); MONOCYTE # 0.6 10^3/ul (0.3-0.9); MONOCYTES % 5.4 % (0.0-11.0); NEUTROPHIL # 7.4 10^3/ul (1.6-7.5); NEUTROPHILS % 64.1 % (39.0-77.0); PLATELET COUNT 160 10^3/UL (140-415); RED BLOOD COUNT 4.59 10^6/ul (4.20-5.40); RED CELL DISTRIBUTION WIDTH 14.4 % (11.5-14.5); WHITE BLOOD COUNT 11.6 10^3/ul (4.8-10.8)
[2017-05-05 21:00] LABS: ALBUMIN 4.2 g/dl (3.3-4.9); ALBUMIN/GLOBULIN RATIO 1.07; BILIRUBIN,INDIRECT 0.1 mg/dl (0-1.1); BILIRUBIN,TOTAL 0.1 mg/dl (0.2-1.3); CALCIUM 9.9 mg/dl (8.4-10.2); CREATININE 0.55 mg/dl (0.44-1.00); POTASSIUM 4.1 mmol/L (3.5-5.1); TOTAL PROTEIN 8.1 g/dl (6.1-8.1)
[2017-05-05 21:01] LABS: ADD UMIC YES; UR ASCORBIC ACID NEGATIVE (NEGATIVE); UR BACTERIA MANY /HPF (NONE SEEN); UR BILIRUBIN (Dip) NEGATIVE (NEGATIVE); UR BLOOD (Dip) NEGATIVE (NEGATIVE); UR CLARITY CLOUDY (CLEAR); UR COLOR YELLOW (YELLOW); UR GLUCOSE (Dip) NEGATIVE (NEGATIVE); UR KETONES (Dip) TRACE mg/dL (NEGATIVE); UR LEUKOCYTE ESTERASE (Dip) TRACE Leu/ul (NEGATIVE); UR MUCUS MODERATE /HPF (NONE SEEN); UR NITRITE (Dip) POSITIVE (NEGATIVE); UR RBC 2 /HPF (0-5); UR SPECIFIC GRAVITY (Dip) 1.026 (1.003-1.030); UR SQUAMOUS EPITHELIAL CELL FEW /HPF (FEW); UR TOTAL PROTEIN (Dip) NEGATIVE (NEGATIVE); UR UROBILINOGEN (Dip) 1+ mg/dL (NEGATIVE)
--- NOTE | 2017-05-05 21:31 | RADRPT ---
PROCEDURE: OB Ultrasound. CLINICAL INDICATION: Positive test. Trauma due to a heavy object falling on the patient . Left lower quadrant pain. TECHNIQUE: Ultrasound of the pelvis was performed with transabdominal sonography in the axial and sagittal planes. COMPARISON: No prior study is available for comparison. FINDINGS: There is a single intrauterine gestational sac. pole and yolk sac are present. There is heart motion. heart rate is 161 beats per minute. [place]-rump length is 8.15 cm. Placenta is anterior with no evidence of abruption or previa. Menstrual age by ultrasound dates is 14 weeks 1 day. This indicates an expected date of delivery of 11/02/2017. The ovaries are not visualized. There is no other pelvic mass or free fluid. IMPRESSION: 1. Single live intrauterine gestation of 14 weeks 1 day menstrual age by ultrasound dates. 2. Expected date of delivery is 11/02/2017. RPTAT: QQ .Rian Thornton MD, MD Date Time Electronically viewed and signed by .Rian Thornton MD, on 05/05/2017 21:31 .R/
--- NOTE | 2017-05-05 21:39 | ERD ---
ER Documentation Chief Complaint Date/Time DATE: 05/05/17 TIME: 21:39 Chief Complaint left abd pain, states pot fell on stomach x 1 hour ago, 14 weeks HPI 22-year-old female who is approximately 14 weeks presents the emergency department complaining of left lower abdominal pain since today. Patient states while at work she was in a kitchen mixing ingredients to make a cake when a heavy bowl fell and hit her abdomen. She states that since that time she has been experiencing constant localized left lower abdominal pain rated a 7 out of 10, sharp, and worse with movement or pressure. Patient has not attempted to treat her symptoms with medication thus far. She denies any nausea, vaginal bleeding, vomiting or diarrhea. She denies head trauma. ROS All systems reviewed and are negative except as per history of present illness. Medications Home Meds Active Scripts Cephalexin* (Cephalexin*) 500 Mg Capsule, 500 MG PO Q8, #21 CAP Prov:MERT SHANKS PA-C 05/05/17 Acetaminophen* (Tylenol*) 325 Mg Tablet, 650 MG PO Q4H Y for MILD PAIN LEVEL 1- 3 for 7 Days, TAB Prov:MERT SHANKS PA-C 05/05/17 Clotrimazole (Clotrim) 15 Gm Cr, 1 APPLIC TOP BID, #6 OZ Prov:SERAFIN ANTONIO 12/18/16 Pantoprazole* (Pantoprazole*) 40 Mg Tablet.dr, 40 MG PO 06,18 for 30 Days Prov:SERAFIN ANTONIO 12/18/16 Sucralfate (Carafate) 1 Gm Tablet, 1 GM PO QID for 30 Days, TAB Prov:SERAFIN ANTONIO 12/18/16 [place]-3/Dha/Epa/Fish Oil (FISH OIL EC 1,000 MG SOFTGEL) 1 Each Capsule.dr, 1000 MG PO BID for 30 Days Prov:SERAFIN ANTONIO 12/18/16 Albuterol Sulfate* (Ventolin HFA*) 18 Gm Hfa.aer.ad, 2 PUFF INHALATION Q4H, #1 INHALER Prov:SERAFIN ANTONIO 12/18/16 Ondansetron (Ondansetron Odt) 4 Mg Tab.rapdis, 4 MG PO Q8 Y for NAUSEA AND/OR VOMITING, #30 TAB Prov:BRYCE THOMASON NP 12/13/16 Hydrocodone/Acetaminophen ([place] 5-325 Tablet) 1 Each Tablet, 1 TAB PO Q6H Y for SEVERE PAIN LEVEL 7-10, #20 TAB Prov:BRYCE THOMASON NP 12/13/16 Magaldrate/Simethicone* (Mylanta*) 355 Ml Susp, 30 ML PO QID Y for GASTROINTESTINAL UPSET, #1 BOTTLE Prov:BRYCE THOMASON NP 12/13/16 Allergies Allergies: Coded Allergies: No Known Allergy (Unverified , 05/05/17) PMhx/Soc History of Surgery: Yes (Lt ankle sx) Anesthesia Reaction: No Hx Neurological Disorder: No Hx Respiratory Disorders: No Hx Cardiac Disorders: No Hx Psychiatric Problems: No Hx Miscellaneous Medical Probl: No Hx Alcohol Use: No Hx Substance Use: No Hx Tobacco Use: No Smoking Status: Never smoker Physical Exam Vitals Vital Signs Date Time Temp Pulse Resp B/P Pulse Ox O2 Delivery O2 Flow Rate FiO2 05/05/17 19:42 98.8 94 20 172/95 99 Physical Exam Const: Well-developed, well-nourished, no acute distress Head: Atraumatic Eyes: Normal Conjunctiva ENT: Normal External Ears, Nose and Mouth. Neck: Full range of motion..~ No meningismus. Resp: Clear to auscultation bilaterally Cardio: Regular rate and rhythm, no murmurs Abd: No contusions or abrasions, no ecchymosis or erythema, Soft. Localized tenderness to the left lower abdomen, non distended. Normal bowel sounds Skin: No petechiae or rashes Back: No midline or flank tenderness Ext: No cyanosis, or edema Neur: Awake and alert Psych: Normal Mood and Affect Result Diagram: 05/05/17202105/05/172021 Results 24 hrs Laboratory Tests Test 05/05/17 20:22 White Blood Count 11.610^3/ul Red Blood Count 4.5910^6/ul Hemoglobin 13.0g/dl Hematocrit 38.5% Mean Corpuscular Volume 83.9fl Mean Corpuscular Hemoglobin 28.3pg Mean Corpuscular Hemoglobin Concent 33.8g/dl Red Cell Distribution Width 14.4% Platelet Count 73860^3/UL Mean Platelet Volume 13.0fl Neutrophils % 64.1% Lymphocytes % 26.5% Monocytes % 5.4% Eosinophils % 3.1% Basophils % 0.3% Nucleated Red Blood Cells % 0.0/100WBC Neutrophils # 7.410^3/ul Lymphocytes # 3.110^3/ul Monocytes # 0.610^3/ul Eosinophils # 0.410^3/ul Basophils # 0.010^3/ul Nucleated Red Blood Cells # 0.010^3/ul Urine Color YELLOW Urine Clarity CLOUDY Urine pH 5.0 Urine Specific [place] 1.026 Urine Ketones TRACEmg/dL Urine Nitrite POSITIVEmg/dL Urine Bilirubin NEGATIVEmg/dL Urine Urobilinogen 1+mg/dL Urine Leukocyte Esterase TRACELeu/ul Urine Microscopic RBC 2/HPF Urine Microscopic WBC 4/HPF Urine Squamous Epithelial Cells FEW/HPF Urine Bacteria MANY/HPF Urine Mucus MODERATE/HPF Urine Hemoglobin NEGATIVEmg/dL Urine Glucose NEGATIVEmg/dL Urine Total Protein NEGATIVEmg/dl Sodium Level 138mmol/L Potassium Level 4.1mmol/L Chloride Level 108mmol/L Carbon Dioxide Level 20mmol/L Anion Gap 14 Blood Urea Nitrogen 10mg/dl Creatinine 0.55mg/dl Glucose Level 85mg/dl Calcium Level 9.9mg/dl Total Bilirubin 0.1mg/dl Direct Bilirubin 0.00mg/dl Indirect Bilirubin 0.1mg/dl Aspartate Amino Transf (AST/SGOT) 40IU/L Alanine Aminotransferase (ALT/SGPT) 30IU/L Alkaline Phosphatase 62IU/L Total Protein 8.1g/dl Albumin 4.2g/dl Globulin 3.90g/dl Albumin/Globulin Ratio 1.07 Beta HCG, Quantitative 81537.0mIU/ml Current Medications Medications (Trade) Dose Ordered Sig/Ashtyn Route PRN Reason Start Time Stop Time Status Last Admin Dose Admin Acetaminophen (Tylenol Tab) 650 mg ONCE STAT PO 05/05/17 20:12 05/05/17 20:15 DC 05/05/17 20:26 Procedures/MDM PROCEDURE: OB Ultrasound. CLINICAL INDICATION: Positive test. Trauma due to a heavy object falling on the patient. Left lower quadrant pain. TECHNIQUE: Ultrasound of the pelvis was performed with transabdominal sonography in the axial and sagittal planes. COMPARISON: No prior study is available for comparison. FINDINGS: There is a single intrauterine gestational sac. pole and yolk sac are present. There is heart motion. heart rate is 161 beats per minute. [place]-rump length is 8.15 cm. Placenta is anterior with no evidence of abruption or previa. Menstrual age by ultrasound dates is 14 weeks 1 day. This indicates an expected date of delivery of 11/02/2017. The ovaries are not visualized. There is no other pelvic mass or free fluid. IMPRESSION: 1. Single live intrauterine gestation of 14 weeks 1 day menstrual age by ultrasound dates. 2. Expected date of delivery is 11/02/2017. RPTAT: QQ .Rina Thornton MD, MD Date Time Electronically viewed and signed by .Rian Thornton MD, on 05/05/2017 21:31 .R/ CC: MERT SHANKS PA-C This is a 22-year-old female who is approximately 14 weeks who presents complaining of left lower abdominal pain after a heavy bowl fell and hit her in the abdomen while at work today. Upon arrival, patient well- appearing and physical exam without evidence of ecchymosis, erythema or surface trauma. Patient was locally tender at the left lower abdomen. Vital signs reviewed. Patient afebrile, not tachycardic and not hypoxic upon arrival. Patient states she has a history of hypertension. Her blood pressure was measured at 172/95 upon arrival. Patient denies any swelling of her feet and states that this pressure is normal for her. Recommended to follow-up with her doctor tomorrow regarding her pressure. She denies chest pain or shortness of breath. Abdominal ultrasound with evidence of normal-appearing uterine . CBC showed no evidence of systemic infection or severe anemia. CMP showed no evidence of electrolyte abnormalities, severe acidosis, alkalosis , renal failure, or liver disease. UA showed evidence of nitrites, leukocyte esterase and bacteremia. Patient will be treated for urinary tract infection. History and physical exam consistent with left lower abdominal pain likely the result of a minor abdominal contusion versus urinary tract infection. At this time low suspicion for Serious intra-abdominal trauma, Ectopic , Ovarian torsion, diverticulitis, acute appendicitis, pancreatitis, cholecystitis , pyelonephritis, severe systemic illness, sepsis. Patient to continue Tylenol for pain and begin Keflex. Follow-up with [facility] specialist this week. All imaging and lab results were provided to patient. Upon reassessment she reports improvement of her pain and agrees with plan to discharge home. Based on patient's history of present illness and physical examination the decision was made to discharge. The patient was re-evaluated after ED treatment and stabilizing measures, and symptoms have improved. There is no evidence of life threatening injuries or illnesses at this time. On re-examination, patient resting in no distress, stable vital signs, reports feeling better and safe for discharge with outpatient follow up with PMD in 1-2 days. Patient given return precautions. Departure Diagnosis: Primary Impression: Abdominal pain Abdominal location: left lower quadrant Qualified Code: R10.32 - Left lower quadrant pain Additional Impressions: Abdominal contusion Encounter type: initial encounter Qualified Code: S30.1XXA - Contusion of abdominal wall, initial encounter UTI (urinary tract infection) Urinary tract infection type: site unspecified Hematuria presence: without hematuria Qualified Code: N39.0 - Urinary tract infection without hematuria, site unspecified MERT SHANKS PA-C May 05, 2017 21:39
[2017-05-05] MEDS ORDERED: CEPH500C PO (21:49)
[2017-05-05] MEDS ORDERED: ACET325T33 PO (21:49)
[2017-05-05 22:24] VITALS: BP 173/74; PULSE 83; RESP 18; TEMP 98.1
== END 2017-05-05 22:26 | disposition home or self-care (01) ==
LOC: FTE 19:36
DX: S30.1XXA Contusion of abdominal wall, initial encounter (principal); N39.0 Urinary tract infection, site not specified; W20.8XXA Other cause of strike by thrown, projected or falling object, initial encounter; Y92.89 Other specified places as the place of occurrence of the external cause
CPT/HCPCS: 36415; 76801; 80053; 81001; 84702; 85025

== ENCOUNTER 2017-06-28 12:03 | Inpatient (IN) | payer MEDICAID ==
[~2017-06-28] VITALS: Ht 154.9 cm; Wt 69.5 kg
[~2017-06-28 12:03] MED LIST changes: +ACET325T33 PO; +CEPH500C PO
[2017-06-28 14:18] VITALS: Ht 154.9 cm; Wt 69.5 kg
[2017-06-28 14:20] VITALS: BP 132/65; PULSE 71; RESP 18
--- NOTE | 2017-06-28 14:56 | RADRPT ---
PROCEDURE: US OB. CLINICAL INDICATION: Low JORGE LUIS , pain TECHNIQUE: Transabdominal views of the pelvis are available for review. COMPARISON: 05/05/2017 FINDINGS: There is a single intrauterine gestation in a breech position. The heart rate is noted at 158 bpm. The placenta is anterior. The MVP measures 7.3 cm. RPTAT: AA IMPRESSION: Normal MVP. .Daniel Hernández MD, MD Date Time Electronically viewed and signed by .Daniel Hernández MD, MD on 06/28/2017 14:56 .S/
[2017-06-28 15:54] LABS: PARTIAL THROMBOPLASTIN TIME 25.7 Sec (25.0-35.0)
[2017-06-28 15:55] LABS: ALBUMIN 3.8 g/dl (3.3-4.9); ALBUMIN/GLOBULIN RATIO 1.15; BILIRUBIN,INDIRECT 0.2 mg/dl (0-1.1); BILIRUBIN,TOTAL 0.2 mg/dl (0.2-1.3); CALCIUM 8.3 mg/dl (8.4-10.2); CREATININE 0.52 mg/dl (0.44-1.00); POTASSIUM 3.1 mmol/L (3.5-5.1); TOTAL PROTEIN 7.1 g/dl (6.1-8.1); URIC ACID 5.4 mg/dl (3.1-7.9)
[2017-06-28 16:35] LABS: INR 1.09; PROTIME 14.1 Sec (12.2-14.2); PT RATIO 1.1
[2017-06-28 17:00] LABS: ADD UMIC YES; UR ASCORBIC ACID NEGATIVE (NEGATIVE); UR BACTERIA MANY /HPF (NONE SEEN); UR BILIRUBIN (Dip) NEGATIVE (NEGATIVE); UR BLOOD (Dip) NEGATIVE (NEGATIVE); UR CLARITY SLIGHTLY CLOUDY (CLEAR); UR COLOR AMBER (YELLOW); UR GLUCOSE (Dip) NEGATIVE (NEGATIVE); UR KETONES (Dip) NEGATIVE (NEGATIVE); UR LEUKOCYTE ESTERASE (Dip) TRACE Leu/ul (NEGATIVE); UR MUCUS FEW /HPF (NONE SEEN); UR NITRITE (Dip) POSITIVE (NEGATIVE); UR RBC 2 /HPF (0-5); UR SPECIFIC GRAVITY (Dip) 1.024 (1.003-1.030); UR SQUAMOUS EPITHELIAL CELL MANY /HPF (FEW); UR TOTAL PROTEIN (Dip) 1+ mg/dl (NEGATIVE); UR UROBILINOGEN (Dip) 1+ mg/dL (NEGATIVE)
--- NOTE | 2017-06-28 17:44 | HP ---
Date/Time of Note Date/Time of Note DATE: 06/28/17 TIME: 17:43 OB - History Hx of Present Free Text/Dictation 22+wks with Vomiting and elevated liver enzymes : 1 Para: 0 Care: Good Care Obstetrical Complications: None Medical Complications: None Past Family/Social History * Past Medical, Surgical, Family and Obstetric Histories reviewed from chart. OB Admission Exam Vital Signs Vital Signs Vital Signs Date Time Temp Pulse Resp B/P Pulse Ox O2 Delivery O2 Flow Rate FiO2 06/28/17 14:20 98.3 71 18 132/65 100 Room Air Physical Exam Abdomen: WNL Extremities: Normal Membranes: Intact Heart Rate: 150's Last 72 hours Lab Results CBC & BMP 06/28/17 15:20 Liver Function Test 06/28/17 15:20 Alanine Aminotransferase (ALT/SGPT) 46 Albumin 3.8 Alkaline Phosphatase 70 Aspartate Amino Transf (AST/SGOT) 76 H Direct Bilirubin 0.00 Total Protein 7.1 OB Assessment/Plan Reason for admission: observation Plan: Expectant Management BUBBA ESPOSITO M.D. Jun 28, 2017 17:44
[2017-06-28] MEDS ORDERED: ONDANSETRON (ODT) 4 MG TAB PO PRN (18:30)
[2017-06-28] MEDS: LACTATED RINGER'S 1,000 ML IV SCH (18:36)
--- NOTE | 2017-06-28 19:11 | RADRPT ---
PROCEDURE: US OB. CLINICAL INDICATION: labor at 22 weeks gestational age. TECHNIQUE: Multiple sonographic images of the uterus were obtained. The images were revi ewed on a PACS workstation. COMPARISON: No prior studies are available for comparison. FINDINGS: There is a single live intrauterine gestation. heart rate is 134 beats per minute. Measurements were made in order to determine age. The results are as follows: BPD = 5.69 cm. HC = 20.75 cm. AC = 20.22 cm. FL = 3.94 cm. Estimated weight is 628 +/- 94 grams. LMP growth percentile is greater than 97 %. The FL/BPD ratio is diminished, FL/AC ratio is diminished, and HC/AC ratio is diminished. Menstrual age by ultrasound dates is 23 weeks 3 days. The estimated date of delivery is 10/22/2017. Position is breech/variable and placenta is anterior grade 1. There is no evidence for an abruption or placenta previa. IMPRESSION: 1. Single live intrauterine gestation of 23 weeks 3 days menstrual age by ultrasound dates. 2. The estimated date of delivery is 10/22/2017. 3. The FL/BPD ratio is diminished, FL/AC ratio is diminished, and HC/AC ratio is diminished. Follow -up advised. RPTAT: QQ .Rian Thornton MD, Date Time Electronically viewed and signed by .Rian Thornton MD, on 06/28/2017 19:11 .R/
[2017-06-29] MEDS: LACTATED RINGER'S 1,000 ML IV SCH ×3 (01:43→17:17)
[2017-06-29 13:28] LABS: ALANINE AMINOTRANSFERASE 46 IU/L (13-69); ASPARTATE AMINO TRANSFERASE 62 IU/L (15-46)
[2017-06-29] MEDS ORDERED: DIPHENOXYLATE/ATROPINE TAB PO PRN (15:00)
--- NOTE | 2017-06-29 17:28 | QN ---
Documentation Comment Temperature 98.3 rest of her vital signs are stable, at 3 BM today, her nausea is improving preliminary urine culture gram-negative rods we will wait for the final report , Rocephin 2 g today continue expecting management IDANIA BARRAZA MD Jun 29, 2017 17:28
[2017-06-29] MEDS ORDERED: CEFTRIAXONE 2 GM/50 ML (PMX) 50 ML IVPB SCH (17:30)
[2017-06-29] MEDS: SOD CHLORIDE 0.9% 1,000 ML IV SCH (19:07)
[2017-06-29] MEDS: CEFTRIAXONE 2 GM/50 ML (PMX) 50 ML IVPB SCH (20:44)
[2017-06-30] MEDS: SOD CHLORIDE 0.9% 1,000 ML IV SCH ×3 (03:48→18:31)
--- NOTE | 2017-06-30 11:37 | QN ---
Documentation Comment Afebrile Vital signs are stable Urine culture positive for E. coli, sensitive to Rocephin, received 1 dose, next dose expected at 1800, considering discharging her home with a prescription of Furadantin 100 mg twice daily recommended follow-up as outpatient in the clinic. IDANIA BARRAZA MD Jun 30, 2017 11:37
[2017-06-30] MEDS: CEFTRIAXONE 2 GM/50 ML (PMX) 50 ML IVPB SCH (18:31)
[2017-07-01] MEDS: SOD CHLORIDE 0.9% 1,000 ML IV SCH ×2 (03:12→11:30)
--- NOTE | 2017-07-01 10:18 | PDOCDIS ---
Discharge Instructions CONDITION Patient Condition: Good HOME CARE INSTRUCTIONS: Diet Instructions: Regular ACTIVITY: Activity Restrictions: No Restrictions Bathing Restrictions: Shower FOLLOW UP/APPOINTMENTS Follow-up Plan Make appointment to be seen at the clinic in 1 week SCHOOL/WORK RELEASE May return to School/Work with: No Restrictions IDANIA BARRAZA MD Jul 01, 2017 10:18
--- NOTE | 2017-07-01 14:01 | DS ---
Date/Time of Note Date/Time of Note DATE: 07/01/17 TIME: 13:43 Discharge Summary Admission/Discharge Info Admit Date/Time Jun 28, 2017 at 17:35 Discharge Date/Time July 01, 2017 at 1350 Discharge Diagnosis 22 weeks admitted to [facility] for nausea vomiting and diarrhea ,she underwent complete workup her liver enzymes was mildly elevated on first specimen now is trending down , culture and sensitivity on her urine positive for E. coli she was treated with Rocephin , followed with Macrobid 100 mg twice daily which will continue for the next 2 weeks at the time of discharge patient has been free from nausea vomiting diarrhea for the last 24 hours, she has an appointment with perinatology clinic at 10:00 July 02, 2017 advised to follow the rest of her . With the [facility] clinic Patient Condition: Good Procedures Antibiotic treatment for UTI Hx of Present Illness 22 weeks complicated with urinary tract infection Hospital Course Hospital course has been uneventful she was afebrile and denies any symptoms of nausea vomiting, no more diarrhea last 48 hours Home Meds Active Scripts Cephalexin* (Cephalexin*) 500 Mg Capsule, 500 MG PO Q8, #21 CAP Prov:MERT SHANKS PA-C 05/05/17 Acetaminophen* (Tylenol*) 325 Mg Tablet, 650 MG PO Q4H Y for MILD PAIN LEVEL 1- 3 for 7 Days, TAB Prov:MERT SHANKS PA-C 05/05/17 Clotrimazole (Clotrim) 15 Gm Cr, 1 APPLIC TOP BID, #6 OZ Prov:SERAFIN ANTONIO 12/18/16 Pantoprazole* (Pantoprazole*) 40 Mg Tablet.dr, 40 MG PO 06,18 for 30 Days Prov:REGSERAFIN VELOZ 12/18/16 Sucralfate (Carafate) 1 Gm Tablet, 1 GM PO QID for 30 Days, TAB Prov:SERAFIN ANTONIO 12/18/16 [place]-3/Dha/Epa/Fish Oil (FISH OIL EC 1,000 MG SOFTGEL) 1 Each Capsule.dr, 1000 MG PO BID for 30 Days Prov:REGSERAFIN VELOZ 12/18/16 Albuterol Sulfate* (Ventolin HFA*) 18 Gm Hfa.aer.ad, 2 PUFF INHALATION Q4H, #1 INHALER Prov:TUSHARRCUAUHTEMOCSERAFIN 12/18/16 Ondansetron (Ondansetron Odt) 4 Mg Tab.rapdis, 4 MG PO Q8 Y for NAUSEA AND/OR VOMITING, #30 TAB Prov:BRYCE THOMASON NP 12/13/16 Hydrocodone/Acetaminophen ([place] 5-325 Tablet) 1 Each Tablet, 1 TAB PO Q6H Y for SEVERE PAIN LEVEL 7-10, #20 TAB Prov:BRYCE THOMASON NP 12/13/16 Magaldrate/Simethicone* (Mylanta*) 355 Ml Susp, 30 ML PO QID Y for GASTROINTESTINAL UPSET, #1 BOTTLE Prov:BRYCE THOMASON NP 12/13/16 Follow-up Plan Patient has appointment with perinatology clinic July 02, 2017 at 10 AM Primary Care Provider Not On Staff Doctor Time spent on discharge: < 30 minutes IDANIA BARRAZA MD Jul 01, 2017 13:53
== END 2017-07-01 14:25 | disposition home or self-care (01) | DRG 781 ==
LOC: OBT 12:03 → L-D 12:03 → OBG 17:35 → OBT 17:35
PROVIDERS: ADMIT Obstetrics & Gynecology; ATTEND Obstetrics & Gynecology
DX: O23.42 Unspecified infection of urinary tract in pregnancy, second trimester (principal); O26.892 Other specified pregnancy related conditions, second trimester; R74.8 Abnormal levels of other serum enzymes; B96.20 Unspecified Escherichia coli [E. coli] as the cause of diseases classified elsewhere; Z3A.22 22 weeks gestation of pregnancy
CPT/HCPCS: 76815; 80053; 81001; 84450; 84460; 84560; 85610; 85730; 87045; 87086; G0463; J7030; J7120

== ENCOUNTER 2017-07-17 16:12 | Outpatient (CLI) | END 2017-07-17 21:43 | disposition home or self-care (01) ==

== ENCOUNTER 2017-09-20 11:39 | Outpatient (CLI) | END 2017-09-20 15:24 | disposition home or self-care (01) ==

== ENCOUNTER 2017-09-23 09:47 | Outpatient (CLI) | END 2017-09-23 11:30 | disposition home or self-care (01) ==

== ENCOUNTER 2017-10-25 17:52 | Inpatient (IN) | END 2017-10-29 21:50 | disposition home or self-care (01) | DRG 765 ==

== ENCOUNTER 2017-12-04 01:30 | Emergency (ER) | END 2017-12-04 08:48 | disposition short-term general hospital (02) ==

== ENCOUNTER 2018-07-31 07:15 | Emergency (ER) | payer OTHER ==
[~2018-07-31] VITALS: Ht 162.6 cm; Wt 147.0 kg
[~2018-07-31 07:15] MED LIST changes: -ACET325T33 PO; -ALBU18HF INHALATION; -CEPH500C PO; -CLO15CR1 TOP; -HYDR-906 PO; -MAG-19 PO; -OMEG1CAP55 PO; -ONDA4TAB14 PO; -PANT40TA4 PO; +PREN-93 PO; -SUCR1TAB27 PO
[2018-07-31 07:19] VITALS: BP 133/65; PULSE 77; RESP 20; Ht 162.6 cm; Wt 147.0 kg
[2018-07-31] MEDS ORDERED: OXYM30MI NASAL (07:42)
[2018-07-31] MEDS ORDERED: ACET325T33 PO (07:42)
--- NOTE | 2018-07-31 08:28 | ERD ---
ER Documentation Chief Complaint Chief Complaint pt bib family with c/o cough, runny nose , congestion x 3 days HPI 23-year-old female presenting with cough and runny nose with congestion times 3 days. Patient has had no fevers. She is . She has not taken medications for symptoms. Denies other medical problems. NKDA. Surgical history cystectomy. Social history denies ROS All systems reviewed and are negative except as per history of present illness. Medications Home Meds Active Scripts Oxymetazoline Hcl (Nasal [place]) 30 Ml Mist, 2 SPRAYS NASAL BID, #1 BOTTLE Prov:GALO HILTON PA-C 07/31/18 Acetaminophen* (Tylenol*) 325 Mg Tablet, 2 TAB PO Q8 PRN for PAIN AND OR ELEVATED TEMP, #20 TAB Prov:GALO HILTON PA-C 07/31/18 Reported Medications Vit No.124/Iron/FA ( Vitamin Tablet) 1 Each Tablet, 1 EACH PO, TAB 07/23/18 Allergies Allergies: Coded Allergies: No Known Allergy (Unverified , 07/23/18) PMhx/Soc History of Surgery: Yes (Lt ankle sx) Anesthesia Reaction: No Hx Neurological Disorder: No Hx Respiratory Disorders: No Hx Cardiac Disorders: No Hx Psychiatric Problems: No Hx Miscellaneous Medical Probl: No Hx Alcohol Use: No Hx Substance Use: No Hx Tobacco Use: No Smoking Status: Never smoker FmHx Family History: No diabetes, No coronary disease, No other Physical Exam Vitals Vital Signs Date Temp Pulse Resp B/P (MAP) Pulse Ox O2 O2 Flow FiO2 Time Delivery Rate 07/31/18 98.3 77 20 133/65 98 07:19 (87) Physical Exam GENERAL: The patient is well-appearing, well-nourished, in no acute distress HEENT: Atraumatic. Conjunctivae are pink. Pupils equal, round, and reactive to light. There is no scleral icterus. Tympanic membranes clear bilaterally. Oropharynx clear. No nystagmus or photophobia. NECK: C-spine is soft and supple. There is no meningismus. There is no cervical lymphadenopathy. CHEST: Clear to auscultation bilaterally. There are no rales, wheezes or rhonchi. HEART: Regular rate and rhythm. No murmurs, clicks, rubs or gallops. No S3 or S4. Procedures/MDM MDM: 23 yr old female complaining of cough and runny nose. I have low suspicion for bacterial HENT infection . I have low suspicion for PNA. I have low suspicion for meningitis or sepsis. Patient likely has a viral etiology is recommended to take supportive medications. I do not feel antibiotics are indicated. Patient is told if symptoms change or worsen to return immediately to the ER. Answered at discharge Departure Diagnosis: Primary Impression: Upper respiratory infection Condition: Stable Patient Instructions: Uri, Viral, No Abx (Adult) Referrals: [facility] YOU HAVE RECEIVED A MEDICAL SCREENING EXAM AND THE RESULTS INDICATE THAT YOU DO NOT HAVE A CONDITION THAT REQUIRES URGENT TREATMENT IN THE EMERGENCY DEPARTMENT. FURTHER EVALUATION AND TREATMENT OF YOUR CONDITION CAN WAIT UNTIL YOU ARE SEEN IN YOUR DOCTORS OFFICE WITHIN THE NEXT 1-2 DAYS. IT IS YOUR RESPONSIBILITY TO MAKE AN APPOINTMENT FOR FOLOW-UP CARE. IF YOU HAVE A PRIMARY DOCTOR --you should call your primary doctor and schedule an appointment IF YOU DO NOT HAVE A PRIMARY DOCTOR YOU CAN CALL OUR PHYSICIAN REFERRAL HOTLINE AT IF YOU CAN NOT AFFORD TO SEE A PHYSICIAN YOU CAN CHOSE FROM THE FOLLOWING [facility] [address] [facility] [facility] [address] [facility] [place]. [facility] [address] [facility] [facility] [address] [facility] [facility] [address] [facility]. [facility]. [address] [place] Additional Instructions: FOLLOW UP WITH YOUR PRIMARY CARE PHYSICIAN TOMORROW.Return to this facility if you are not improving as expected. GALO HILTON PA-C Jul 31, 2018 08:28
== END 2018-07-31 08:07 | disposition home or self-care (01) ==
LOC: FTE 07:15
DX: J06.9 Acute upper respiratory infection, unspecified (principal)
CPT/HCPCS: 99282

== ENCOUNTER 2018-10-06 15:42 | Inpatient (IN) | payer OTHER ==
[~2018-10-06] VITALS: Ht 175.3 cm; Wt 150.1 kg
[~2018-10-06 15:42] MED LIST changes: +ACET325T33 PO; +OXYM30MI NASAL
[2018-10-06 15:57] VITALS: Ht 175.3 cm; Wt 150.1 kg
[2018-10-06] MEDS ORDERED: METF-849 PO (15:57)
[2018-10-06 15:58] VITALS: BP 121/66; PULSE 83; RESP 18
[2018-10-06] MEDS ORDERED: NIFEdipine 10 MG CAP PO ONE (16:30)
[2018-10-06] MEDS: LACTATED RINGER'S 1,000 ML IV SCH ×3 (16:54→18:13)
--- NOTE | 2018-10-06 18:19 | HP ---
Date/Time of Note Date/Time of Note DATE: 10/06/18 TIME: 18:14 OB - History Hx of Present Free Text/Dictation 36+wks with strong CTXs : 2 Para: 1 Care: Good Care Ultrasounds: Normal mid trimester US Obstetrical Complications: Gestational Diabetes Medical Complications: None Past Family/Social History * Past Medical, Surgical, Family and Obstetric Histories reviewed from chart. OB Admission Exam Vital Signs Vital Signs Vital Signs Date Temp Pulse Resp B/P (MAP) Pulse Ox O2 O2 Flow FiO2 Time Delivery Rate 10/06/18 97.6 83 18 121/66 Room Air 15:58 (84) Physical Exam Abdomen: WNL Cervical Dilatation: Fingertip Effacement: 0% Station: Ballotable Membranes: Intact Heart Rate: 140's Accelerations: Accelerations Present Decelerations: No Decelerations Varibility: Moderate Contractions on Admission: 6-10 Minutes Apart Last 72 hourBlood Glucose Bedside Glucose - 72 Hours Test 10/06/18 17:34 Bedside Glucose 113 mg/dL (70-220) OB Assessment/Plan Reason for admission: observation Plan: Expectant Management Other plan: 24 hours observation IV Hydration NPO BS check as per The patient is evaluated as her request.She will follow up on the patient BUBBA ESPOSITO M.D. Oct 06, 2018 18:19
[2018-10-06] MEDS ORDERED: METHYLERGONOVINE 0.2 MG INJ IM PRN (18:30)
[2018-10-06] MEDS ORDERED: OXYTOCIN 30 UNITS/LR 500 ML IV PRN (18:30)
[2018-10-06] MEDS ORDERED: OXYTOCIN 30 UNITS/LR 500 ML IV SCH (18:30)
[2018-10-06] MEDS ORDERED: CEFAZOLIN 3 GM in DEXTROSE 5% 100 ML IV SCH (18:30)
[2018-10-06] MEDS ORDERED: MISOPROSTOL 200 MCG TAB PR PRN (18:30)
[2018-10-06] MEDS ORDERED: CARBOPROST 250 MCG INJ IM PRN (18:30)
--- NOTE | 2018-10-06 22:05 | QN ---
Documentation Comment 23 years old 2 para 1001 with A1 gestational diabetes, obesity, previous delivery in October 2017 and single intrauterine at 36 weeks and 5 days with CLAUDIA of 10/30/2018 in labor. She states good movement. She denies nausea, vomiting, shortness of breath, chest pain, headache, visual changes, vaginal bleeding or LOF. She received IV fluid and Procardia, still continue to have a uterine contractions. She is extremely uncomfortable with uterine contractions and rated the pain 9 out of 10. She made cervical changes since observation. - FHR: No sign of metabolic acidosis- Category I - Continuous EFM, toco - CBC, blood type and screen - Please see the orders - A+/Rubella: Immune - GBS: Negative Admission, procedure, risk of delivery including but not limited to respiratory, cardiac, and retinopathy of prematurity, anemia, hyperbilirubinemia, NICU admission discussed in detail with patient and her . Both expressed understanding. She she is desiring a repeat delivery. The risk of delivery including but not limited to bleeding, infection, injury to other organs (bowel, bladder, ureter, vessels, nerves), injury to fetus, blood transfusion, blood transfusion related infection, risk of anesthesia, adhesion, needs for future , removal of uterus or any other indicated surgery, also due to morbid obesity (W: 333 lbs), increased risk of infection, DVT, pulmonary emboli and discussed with the patient and her . Both expressed understanding. All of their questions were answered. She signed the informed consent. PHYSICIAN'S VERIFICATION OF INFORMED CONSENT The patient and her counseled regarding the procedure, its indications, risks, potential complications and alternatives and any questions were answered. Consent was obtained. PLANNED PROCEDURE/TREATMENT: delivery with possible using vacuum/forceps and any other indicated surgery PHYSICIAN'S VERIFICATION OF INFORMED CONSENT FOR BLOOD TRANSFUSION: There is a reasonable possibility that blood transfusion will be necessary as a result of the patient's procedure. I have discussed the following with the patient/patient's legal title insurance sales representative: An explanation of the benefits and risks of the transfusion of blood or blood products and the possible alternatives. All questions have been answered to the patient's satisfaction. INFORMED CONSENT:The patient has been informed of: The nature of the proposed care, treatment, services, medications, interventions or procedures. Potential benefits, risks or side effects, including potential problems related to recuperation. The likelihood of achieving care treatment and service goals. Reasonable alternatives to the proposed care, treatment and service. The relevant risks, benefits and side effects related to alternatives, including the possible results of not receiving care, treatment and services. When indicated, any limitations on the confidentiality of information learned from or about the patient. If appropriate, the risks, benefits and alternatives of the drugs to be used for sedation/analgesia including moderate sedation. If appropriate, patient has been provided information on the risks, benefits and alternatives to the transfusion of blood and/or blood products. If appropriate, patient has been provided information regarding the [place] Blood Act. JAVY AMAYA Oct 06, 2018 22:05
[2018-10-07] VITALS (12 sets, daily range): BP systolic 116–148; BP diastolic 54–72; PULSE 16–99; RESP 16–20
[2018-10-07] MEDS ORDERED: PHENYLephrine (100 MCG/ML) 10ML SYG ONE (01:37)
[2018-10-07] MEDS ORDERED: OXYTOCIN 10 UNIT INJ ONE (01:38)
[2018-10-07] MEDS ORDERED: morphine SULFATE/PF (10 MG/10 ML) INJ ONE (01:38)
--- NOTE | 2018-10-07 02:07 | PREAC ---
Date/Time of Note Date/Time of Note DATE: 10/07/18 TIME: 02:03 Anesthesia Eval and Record Evaluation Time Pre-Procedure Interview DATE: 10/07/18 TIME: 01:15 Age 23 Sex female NPO: 8 hrs Preoperative diagnosis Repeat in labor Planned procedure Past Medical History Past Medical History: Includes GI: Morbid obesity Heme: Anemia, Thrombocytopenia : : (2), Para: (1), Gestational age: (34), Gestational diabetes Surgery & Anesthesia Issues No known issue Meds Anticoagulation: No Beta Joel within 24 hr: No Reason Beta Joel not given: Pt. not on B-Joel Reported Medications Metformin* (Glucophage*) 500 Mg Tab, 500 MG PO WITH BREAKFAST, #30 TAB 10/06/18 Vit No.124/Iron/FA ( Vitamin Tablet) 1 Each Tablet, 1 EACH PO, TAB 07/23/18 Discontinued Scripts Oxymetazoline Hcl (Nasal [place]) 30 Ml Mist, 2 SPRAYS NASAL BID, #1 BOTTLE Prov:GALO HILTON PA-C 07/31/18 Acetaminophen* (Tylenol*) 325 Mg Tablet, 2 TAB PO Q8 PRN for PAIN AND OR ELEVATED TEMP, #20 TAB Prov:GALO HILTON PA-C 07/31/18 Current Medications Lactated Ringer's 1,000 ml @ 125 mls/hr Q8H IV ; Start 10/06/18 at 18:13 Cefazolin Sodium 3 gm/Dextrose 100 ml @ 100 mls/hr ONCE IV ; Start 10/06/18 at 18:30 Oxytocin/Lactated Ringer's 500 ml @ 125 mls/hr POST IV ; Start 10/06/18 at 18:30 Oxytocin/Lactated Ringer's 500 ml @ 0 mls/hr ONCE PRN IV .VAGINAL BLEEDING; Start 10/06/18 at 18:30 Methylergonovine Maleate (Methergine) 0.2 mg ONCE PRN IM .VAGINAL BLEEDING; Start 10/06/18 at 18:30 Carboprost Tromethamine (Hemabate) 250 mcg ONCE PRN IM .VAGINAL BLEEDING; Start 10/06/18 at 18:30 Misoprostol (Cytotec) 1,000 mcg ONCE PRN MS .VAGINAL BLEEDING; Start 10/06/18 at 18:30 Meds reviewed: Yes Allergies Coded Allergies: No Known Allergy (Unverified , 10/06/18) Allergies Reviewed: Yes Labs/Studies Labs Reviewed: Reviewed by anesthesiologist Result Diagram: 10/06/18 1655 10/06/18 1655 Laboratory Tests 10/06/18 16:55 Blood Bank Test 10/06/18 16:55 Antibody Screen NEGATIVE Blood Type A POSITIVE Rh Immune Globulin Candidate NO test: Positive Studies: ECG (n/a), CXR (n/a) Pre-procedure Exam Last vitals Vital Signs Date Temp Pulse Resp B/P (MAP) Pulse Ox O2 O2 Flow FiO2 Time Delivery Rate 10/06/18 97.6 83 18 121/66 Room Air 15:58 (84) Airway: Adequate mouth opening, Adequate thyromental dist Mallampati: Mallampati II Teeth: Normal Lung: Normal Heart: Normal ASA Physical Status ASA physical status: 3 Emergency: E Planned Anesthetic Neuraxial: Spinal Planned Pain Management Sub-arachniod narcotics, Parenteral pain med Pre-operative Attestations Prior to commencing anesthesia and surgery, the patient was re-evaluated, there was verification of: *The patient's identity *The results of appropriate recent lab work and preoperative vital signs *The above evaluation not changing prior to induction *Anesthetic plan, risk benefits, alternative and complications discussed with patient/family; questions answered; patient/family understands, accepts and wishes to proceed. LORENZA LEIVA MD Oct 07, 2018 02:07
[2018-10-07] MEDS ORDERED: FENTAnyl 50 MCG/ML VIAL ONE ×3 (02:19→02:37)
[2018-10-07] MEDS ORDERED: MEPERIDINE 100 MG INJ ONE (02:24)
[2018-10-07] MEDS ORDERED: DIPHENHYDRAMINE 50 MG INJ ONE ×2 (02:30→07:00)
[2018-10-07] MEDS ORDERED: LABETALOL HCL 20MG INJ ONE ×3 (02:33→07:00)
[2018-10-07] MEDS ORDERED: NALBUPHINE HCL (10 MG/1 ML) INJ IV PRN (03:00)
[2018-10-07] MEDS ORDERED: DIPHENHYDRAMINE 50 MG INJ IV PRN ×2 (03:00)
[2018-10-07] MEDS ORDERED: MEPERIDINE 25 MG INJ IV PRN (03:00)
[2018-10-07] MEDS ORDERED: NALOXONE (0.4 MG/ML) INJ IV PRN (03:00)
[2018-10-07] MEDS ORDERED: morphine 2 MG INJ IV PRN ×2 (03:00)
[2018-10-07] MEDS ORDERED: EPHEDrine SULFATE 50 MG/5 ML SYG IV PRN (03:00)
[2018-10-07] MEDS ORDERED: HYDROmorphONE 0.5 MG/0.5 ML SYG IV PRN ×2 (03:00)
[2018-10-07] MEDS ORDERED: ONDANSETRON 4 MG INJ IV PRN ×2 (03:00)
[2018-10-07] MEDS ORDERED: OXYCODONE/ACETAMINOPHEN (5/325) TAB PO PRN ×2 (03:00)
[2018-10-07] MEDS ORDERED: METOCLOPRAMIDE 10 MG INJ IV PRN (03:00)
[2018-10-07] MEDS ORDERED: HYDROmorphONE 1 MG/5 ML IV SYRINGE IV PRN ×3 (03:00)
[2018-10-07] MEDS ORDERED: FENTAnyl 50 MCG/ML VIAL IV PRN ×3 (03:00)
[2018-10-07] MEDS ORDERED: ACETAMINOPHEN 500 MG TAB PO PRN (03:00)
[2018-10-07] MEDS ORDERED: LABETALOL HCL 20MG INJ IV PRN (03:00)
[2018-10-07] MEDS ORDERED: DEXAMETHASONE 4 MG/ML 1 ML INJ ONE (03:10)
--- NOTE | 2018-10-07 04:11 | OPR ---
Operative Report Planned Procedure Procedure date Oct 07, 2018 Procedure(s) Repeat low transverse delivery Performed by see signature line Sizer Hand: JENNIFER BUTT MD Anesthesiologist: LORENZA LEIVA MD Pre-procedure diagnosis 23 years old 2 para 1001 with A2 gestational diabetes, obesity (BMI 49), previous delivery at 36 weeks and 5 days in labor desiring repeat delivery [id number] Anesthesia Type: [id number] spinal Post-Procedure Post-procedure diagnosis 23 years old 2 para 1001 with A2 gestational diabetes, obesity (BMI 49), previous delivery at 36 weeks and 5 days in labor desiring repeat delivery Findings 1. Normal uterus, fallopian tubes and ovaries 2. Viable male in cephalic presentation. 8 at one minute and 9 in 5 minutes. Weight: 8 pound 1 ounce. Time of delivery: 02:22 3. Placenta with three vessel cord 4. Amniotic fluid - Clear Estimated Blood Loss: 500 - 600 mls Specimen(s) none Grafts/Implant(s) none Complication(s) none Pt Condition post procedure: stable Disposition: PACU Procedure Description INDICATION AND HISTORY: A 23 years old 2 para 1001 with A2 gestational diabetes, obesity (BMI 49), previous delivery at 36 weeks and 5 days in labor desiring repeat delivery. The risk of delivery including but not limited to bleeding, infection, injury to other organs (bowel, bladder, ureter, vessels, nerves), injury to fetus, blood transfusion, blood transfusion related infection, risk of anesthesia, adhesion, needs for future , removal of uterus or any other indicated surgery, also increased risk of infection, DVT, pulmonary emboli with obesity discussed with the patient and her family. She expressed understanding. All of her questions were answered. She signed the informed consent. DESCRIPTION OF OPERATION: The patient was taken to the operating room, where she was identified and the procedure was verified. The patient received three gram of Ancef 30 minutes prior to surgery. Spinal anesthesia was placed by anesthesiologist. The patient placed in the dorsal supine position with a left tilt. The heart rate was 135 bpm. The patient was then prepped and draped in the normal sterile fashion. A Pfannenstiel skin incision was made and carried down to the fascia with Bovie. The fascia was incised in the midline and the fascial incision was carried laterally with Bovie. The superior portion of the fascial incision was then grasped with West clamps and tented up and dissected off the underlying rectus muscle with sharp dissection. The lower portion of the fascial incision was then made in a similar fashion. The rectus muscle was and the peritoneum was entered. The peritoneal incision was then stretched and an Jose retractor was inserted. Then, an incision was made in the lower uterine segment in a transverse fashion with a knife and extended bluntly. The was delivered atraumatically in cephalic presentation with the above findings. The umbilical cord was clamped and cut. The neonatology resuscitation team was present and the baby was handed to them. A cord blood sample was obtained for further evaluation. The placenta and membrane, which appeared normal were Removed. The uterus was exteriorized and cleared of all clot and debris. The uterus was then closed in a two layer fashion with 0- Monocryl. At the time of closure, hemostasis was noted. The gutters were irrigated. The peritoneum was reapproximated with 3-0 Vicryl. The muscle was reapproximated with 3-0 Vicryl. The fascia was approximated with 0-Vicryl in a running fashion. The subcutaneous tissue was re approximated with 3-0 vicryl in 3 layer. The skin was closed with 4-0 Monocryl. All instruments, sponges and needle counts were correct x3. The patient tolerated the procedure well. She transferred to the recovery room in stable condition. JAVY AMAYA Oct 07, 2018 04:11
[2018-10-07] MEDS ORDERED: OXYTOCIN 30 UNITS/LR 500 ML IV SCH (06:06)
[2018-10-07] MEDS ORDERED: OXYTOCIN 30 UNITS/LR 500 ML IV PRN (06:30)
[2018-10-07] MEDS ORDERED: METHYLERGONOVINE 0.2 MG TAB PO PRN (06:30)
[2018-10-07] MEDS ORDERED: METHYLERGONOVINE 0.2 MG INJ IM PRN (06:30)
[2018-10-07] MEDS ORDERED: CARBOPROST 250 MCG INJ IM PRN (06:30)
[2018-10-07] MEDS ORDERED: MISOPROSTOL 200 MCG TAB PR PRN (06:30)
[2018-10-07] MEDS ORDERED: LANOLIN HPA 1 PKT TOP PRN (06:30)
[2018-10-07] MEDS ORDERED: ONDANSETRON 4 MG INJ ONE (07:00)
[2018-10-07] MEDS ORDERED: CITRIC ACID/NA CITRATE 30 ML CUP ONE (07:00)
[2018-10-07] MEDS: DEXTROSE 5%-LR 1,000 ML IV SCH ×3 (07:39→22:06)
[2018-10-07] MEDS: SENNA/DOCUSATE NA (8.6MG/50MG) TAB PO SCH ×2 (09:31→21:10)
[2018-10-07] MEDS: KETOROLAC 30 MG INJ IV PRN (15:29)
[2018-10-07] MEDS: LACTATED RINGER'S 1,000 ML IV SCH (16:53)
[2018-10-07] MEDS: GUAIFENESIN/DM 5ML CUP PO PRN (17:33)
--- NOTE | 2018-10-07 18:08 | PN ---
Date/Time of Note Date/Time of Note DATE: 10/07/18 TIME: 18:02 OB Subjective Subjective Subjective POD#0 Patient is doing well. She denies nausea, vomiting, shortness of breath, chest pain, headache. She has been tolerating regular diet. Pain is well controlled on current medications OB Objective Objective Objective Vital Signs Date Temp Pulse Resp B/P (MAP) Pulse Ox O2 O2 Flow FiO2 Time Delivery Rate 10/07/18 98.5 70 18 130/63 97 Room Air 16:04 (85) 10/07/18 8.0 05:15 General: AAO X 3, comfortable, NAD, appropriate mood and affect. Heart: RRR +S1, +S2, no murmurs. Lungs: Clear to auscultation (B/L), no rales, rhonchi or wheezing. ABD: +BS. Soft, non-tender. Uterus 2 cm below umbilicus Incision: Clear, dry, intact. No erythema, drainage or induration. Flank: No CVA tenderness (B/L) LE: Mild edema. No clubbing, cyanosis, thigh or calf tenderness (B/L). Homans 'sign is negative OB Assessment/Plan Other plan: 23 year-old 2 para 2001 with A2 gestational diabetes, obesity s/p repeat delivery at 36 weeks and 5 days POD#0 - AF, VSS - Incentive spirometry - Cont SCDs as long as pt is on bed - Prophylactic Lovenox - Contraception methods with R/B/A/FR discussed - Continue care 2) A2 gestational diabetes: Significance of performing 75 g 2-hour GTT 6-12 weeks after delivery discussed 3) Obesity (BMI 49): Diet and exercise discussed, consult with platform material handling supervisor. JAVY AMAYA Oct 07, 2018 18:08
[2018-10-07] MEDS ORDERED: ZINC OXIDE 20% 30 GM OINT TOP SCH (21:00)
[2018-10-07] MEDS: hydrOXYzine HCL 10 MG TAB PO SCH (21:10)
[2018-10-07] MEDS: ZINC OXIDE 13% (DESITIN) CREAM 2 OZ TUBE TOP SCH (21:10)
[2018-10-07] MEDS ORDERED: ACETAMINOPHEN 500 MG TAB PO STA (21:22)
[2018-10-08 00:02] VITALS: BP 131/61; PULSE 82; RESP 18
[2018-10-08] MEDS: GUAIFENESIN/DM 5ML CUP PO PRN ×2 (01:04→15:51)
[2018-10-08] MEDS: LACTATED RINGER'S 1,000 ML IV SCH (01:05)
[2018-10-08] MEDS ORDERED: ACETAMINOPHEN 500 MG TAB PO PRN (03:30)
[2018-10-08] MEDS: ACETAMINOPHEN 500 MG TAB PO SCH ×4 (03:50→21:36)
[2018-10-08 04:12] VITALS: BP 146/70; PULSE 100; RESP 18
[2018-10-08] MEDS: HYDROCODONE/APAP (5/325) TAB PO PRN (04:52)
[2018-10-08 08:00] VITALS: BP 132/60; PULSE 82; RESP 18
[2018-10-08] MEDS: ZINC OXIDE 13% (DESITIN) CREAM 2 OZ TUBE TOP SCH ×2 (08:28→20:53)
[2018-10-08] MEDS: SENNA/DOCUSATE NA (8.6MG/50MG) TAB PO SCH ×2 (08:28→20:52)
[2018-10-08] MEDS: KETOROLAC 30 MG INJ IV PRN (08:28)
[2018-10-08] MEDS: hydrOXYzine HCL 10 MG TAB PO SCH ×3 (08:28→20:52)
[2018-10-08] MEDS: ENOXAPARIN 30 MG/0.3 ML SYG SC SCH (08:32)
[2018-10-08] MEDS: DEXTROSE 5%-LR 1,000 ML IV SCH ×3 (08:44→22:06)
[2018-10-08] MEDS ORDERED: HYDROCODONE/APAP (5/325) TAB NGT PRN (11:00)
[2018-10-08] MEDS ORDERED: DIPHTH/TET/ACEL PERTUSS (ADULT) 0.5 ML VIAL IM* ONE (11:00)
[2018-10-08] MEDS: HYDROCODONE/APAP (5/325) TAB GTB SCH ×2 (13:42→21:40)
--- NOTE | 2018-10-08 15:22 | PN ---
Date/Time of Note Date/Time of Note DATE: 10/08/18 TIME: 15:19 OB Subjective Subjective Subjective POD#1 Patient is doing well. She denies nausea, vomiting, shortness of breath, chest pain, headache. She has been ambulating without difficulty, tolerating regular diet. Pain is well controlled on current medications OB Objective Objective Objective Vital Signs Date Temp Pulse Resp B/P (MAP) Pulse Ox O2 O2 Flow FiO2 Time Delivery Rate 10/08/18 98.5 82 18 132/60 Room Air 08:00 (84) 10/08/18 96 00:02 10/07/18 8.0 05:15 General: AAO X 3, comfortable, NAD, appropriate mood and affect. Heart: RRR +S1, +S2, no murmurs. Lungs: Clear to auscultation (B/L), no rales, rhonchi or wheezing. ABD: +BS. Soft, non-tender. Uterus 2 cm below umbilicus Incision: Clear, dry, intact. No erythema, drainage or induration. Flank: No CVA tenderness (B/L) LE: Mild edema. No clubbing, cyanosis, thigh or calf tenderness (B/L). Homans 'sign is negative OB Assessment/Plan Other plan: 33 years old 2 para 2002 with A2 gestational diabetes, obesity s/p repeat delivery at 36 weeks and 5 days. POD#1 - AF, VSS - Baby is doing well, at bed side. She is bonding well - Contraception methods with R/B/A/FR discussed - Continue care JAVY AMAYA Oct 08, 2018 15:22
[2018-10-08 15:28] VITALS: BP 131/61; PULSE 81; RESP 18
[2018-10-08 19:35] VITALS: BP 140/78; PULSE 86; RESP 16
[2018-10-09] VITALS: BP 134/68; PULSE 74; RESP 18
[2018-10-09] MEDS: ACETAMINOPHEN 500 MG TAB PO SCH ×4 (03:33→21:49)
[2018-10-09] MEDS: HYDROCODONE/APAP (5/325) TAB PO PRN ×2 (04:01→10:11)
[2018-10-09] MEDS: GUAIFENESIN/DM 5ML CUP PO PRN ×2 (04:02→13:51)
[2018-10-09 04:10] VITALS: BP 126/67; PULSE 70; RESP 18
[2018-10-09] MEDS: HYDROCODONE/APAP (5/325) TAB GTB SCH ×3 (06:00→21:49)
[2018-10-09] MEDS: DEXTROSE 5%-LR 1,000 ML IV SCH ×3 (06:06→22:06)
[2018-10-09 08:30] VITALS: BP 122/73; PULSE 68; RESP 18
[2018-10-09] MEDS: SENNA/DOCUSATE NA (8.6MG/50MG) TAB PO SCH ×2 (09:00→21:00)
[2018-10-09] MEDS: hydrOXYzine HCL 10 MG TAB PO SCH ×3 (10:01→21:49)
[2018-10-09] MEDS: ENOXAPARIN 30 MG/0.3 ML SYG SC SCH (10:03)
[2018-10-09] MEDS: ZINC OXIDE 13% (DESITIN) CREAM 2 OZ TUBE TOP SCH ×2 (10:06→21:49)
--- NOTE | 2018-10-09 13:11 | PN ---
Date/Time of Note Date/Time of Note DATE: 10/09/18 TIME: 11:30 OB Subjective Subjective Subjective Tolerated regular diet, Passed flatus. Has not been ambulated due to headaches. Reports when walks feels headaches more worse and improve with lying down.. Has not have Bowel movement. OB Objective Objective Objective GA: A&O, NAD abdomen: Soft, appropriate tenderness in the section incision noted. Incision. clean, dry and intact Extremities: no calf tenderness, no click. +2 lower extremitiy edema. Lungs: CTA bilaterally CV: RRR VS - Last 72 Hours, by Label Date Temp Pulse Resp B/P (MAP) Pulse Ox O2 O2 Flow FiO2 Time Delivery Rate 10/09/18 97.9 68 18 122/73 Room Air 08:30 (89) 10/09/18 98.5 70 18 126/67 Room Air 04:10 (86) 10/09/18 99.0 74 18 134/68 Room Air 00:00 (90) 10/08/18 98.3 86 16 140/78 Room Air 19:35 (98) 10/08/18 98.1 81 18 131/61 Room Air 15:28 (84) 10/08/18 98.5 82 18 132/60 Room Air 08:00 (84) 10/08/18 100.4 100 18 146/70 Room Air 04:12 (95) 10/08/18 100.4 03:50 10/08/18 99.8 82 18 131/61 96 Room Air 00:02 (84) 10/07/18 102.0 22:01 10/07/18 102.0 89 20 148/54 95 Room Air 21:00 (85) 10/07/18 99.8 99 18 142/67 95 Room Air 19:45 (92) 10/07/18 98.5 70 18 130/63 97 Room Air 16:04 (85) 10/07/18 98.1 78 18 125/72 97 Room Air 12:30 (89) 10/07/18 98.0 70 18 120/70 97 Room Air 10:00 (87) 10/07/18 98.2 70 18 124/56 96 Room Air 07:20 (78) 10/07/18 98.0 90 20 129/66 95 Room Air 06:45 (87) 10/07/18 99.0 72 20 129/66 90 Room Air 05:30 (87) 10/07/18 73 18 117/56 97 Mask 8.0 05:15 (76) 10/07/18 74 20 116/58 97 Mask 8.0 05:03 (77) 10/07/18 73 18 116/59 97 Mask 8.0 04:46 (78) 10/07/18 98.2 73 16 122/60 97 Mask 8.0 04:30 (80) 10/06/18 97.6 83 18 121/66 Room Air 15:58 (84) OB Assessment/Plan Other Assessment: s/p section POD #3 Morbid obesity,Not ambulating. Post , increased risk for DVT Headache, Likely Spinal Headache. Increased symptoms with activity, improves with resting Discussed regarding increased fluid intake and Caffeine, If the symptoms continues, anesthesia consultation,. Routine post op care. Continue Lovenox for DVT prophylaxis until completly becomes ambulatory Discussed plan of care with the patient and nursing staff ETHAN CAMILO MD Oct 09, 2018 13:11
[2018-10-09 15:44] VITALS: BP 121/70; PULSE 70; RESP 18
[2018-10-09 19:50] VITALS: BP 136/61; PULSE 72; RESP 18
[2018-10-10] MEDS: IBUPROFEN 800 MG TAB PO SCH ×4 (01:28→22:14)
[2018-10-10] MEDS: ACETAMINOPHEN 500 MG TAB PO SCH ×4 (03:44→21:14)
[2018-10-10 03:47] VITALS: BP_SYST 65; PULSE 59; RESP 18
[2018-10-10] MEDS: DEXTROSE 5%-LR 1,000 ML IV SCH ×3 (06:06→22:06)
[2018-10-10] MEDS: HYDROCODONE/APAP (5/325) TAB GTB SCH ×3 (06:08→22:14)
[2018-10-10 09:00] VITALS: BP 117/77; PULSE 59; RESP 17
[2018-10-10] MEDS: SENNA/DOCUSATE NA (8.6MG/50MG) TAB PO SCH ×2 (09:00→21:14)
[2018-10-10] MEDS ORDERED: MEASLES,MUMPS,RUBELLA VACCINE INJ SC* ONE (09:00)
[2018-10-10] MEDS ORDERED: DIPHTH/TET/ACEL PERTUSS (ADULT) 0.5 ML VIAL IM* ONE (09:00)
[2018-10-10] MEDS: ZINC OXIDE 13% (DESITIN) CREAM 2 OZ TUBE TOP SCH ×2 (10:32→21:15)
[2018-10-10] MEDS: hydrOXYzine HCL 10 MG TAB PO SCH ×3 (10:33→21:14)
--- NOTE | 2018-10-10 11:37 | QN ---
Documentation Comment C/O headache which is aggrevated by ambulating blood pactch is planned today A s/p RC/S spinal headache P blood patch today d/s after patch if headache is alleviated JENNIFER BUTT MD Oct 10, 2018 11:37
[2018-10-10 16:00] VITALS: BP 117/58; PULSE 60; RESP 18
[2018-10-10 20:00] VITALS: BP 114/61; PULSE 69; RESP 20
[2018-10-11] MEDS: ACETAMINOPHEN 500 MG TAB PO SCH ×2 (03:28→09:48)
[2018-10-11 03:49] VITALS: BP 114/64; PULSE 74; RESP 20
[2018-10-11] MEDS: HYDROCODONE/APAP (5/325) TAB GTB SCH ×2 (05:39→12:08)
[2018-10-11] MEDS: IBUPROFEN 800 MG TAB PO SCH (05:39)
[2018-10-11] MEDS: DEXTROSE 5%-LR 1,000 ML IV SCH (06:17)
[2018-10-11 08:15] VITALS: BP 134/74; PULSE 59; RESP 18
--- NOTE | 2018-10-11 08:48 | DS ---
Date/Time of Note Date/Time of Note DATE: 10/11/18 TIME: 08:48 Obstetrical Discharge Record Final Diagnosis Final Diagnosis: Term delivered Other Final Diagnosis 23 years old 2 para 2002 with A2 gestational diabetes, obesity (BMI 49) s/p repeat low transverse delivery at 36 weeks and 5 days - AF, VSS - Baby is doing well, at bed side. She is bonding well - Contraception methods with R/B/A/FR discussed - Continue care - Discharge home - Rx and instruction given - Follow up in one and 6 weeks 2) A2 GDM and obesity: Diet and exercise discussed in detail with patient. Significance of losing weight on general her infertility discussed. 75 g 2-hour GTT will perform at 6-12 weeks after delivery. Vaginal Delivery Obstetrical Delivery: Spontaneous Section Section: Repeat Condition on Discharge Physical Assessment Last Vitals: Vital Signs Date Temp Pulse Resp B/P (MAP) Pulse Ox O2 O2 Flow FiO2 Time Delivery Rate 10/11/18 98.2 74 20 114/64 Room Air 03:49 (81) 10/08/18 96 00:02 Voiding: Yes Bowel Movement: Yes Breast: Soft, non-tender Fundus: Firm Calf Tenderness: No Patient Condition: Stable JAVY AMAYA Oct 11, 2018 08:48
--- NOTE | 2018-10-11 08:48 | PN ---
Date/Time of Note Date/Time of Note DATE: 10/11/18 TIME: 08:44 OB Subjective Subjective Subjective POD#3 Patient is doing well. She denies nausea, vomiting, shortness of breath, chest pain, headache. She has been ambulating without difficulty, tolerating regular diet. Pain is well controlled on current medications. She had spinal headache, was seen by anesthesiologist yesterday. She received IV fluids and and coughing beverage. She states is doing better and has no further headache. OB Objective Objective Objective Vital Signs Date Temp Pulse Resp B/P (MAP) Pulse Ox O2 O2 Flow FiO2 Time Delivery Rate 10/11/18 98.2 74 20 114/64 Room Air 03:49 (81) 10/08/18 96 00:02 General: AAO X 3, comfortable, NAD, appropriate mood and affect. ABD: +BS. Soft, non-tender. Uterus 2 cm below umbilicus Incision: Clear, dry, intact. No erythema, drainage or induration. Flank: No CVA tenderness (B/L) LE: Mild edema. No clubbing, cyanosis, thigh or calf tenderness (B/L). Homans 'sign is negative OB Assessment/Plan Other plan: 23 years old 2 para 2001 with A2 gestational diabetes, obesity (BMI 49) s/p repeat low transverse delivery at 36 weeks and 5 days - AF, VSS - Baby is doing well, at bed side. She is bonding well - Contraception methods with R/B/A/FR discussed - Continue care - Discharge home - Rx and instruction given - Follow up in one and 6 weeks 2) A2 GDM and obesity: Diet and exercise discussed in detail with patient. Significance of losing weight on general her infertility discussed. 75 g 2-hour GTT will perform at 6-12 weeks after delivery. JAVY AMAYA Oct 11, 2018 08:47
[2018-10-11] MEDS: SENNA/DOCUSATE NA (8.6MG/50MG) TAB PO SCH (09:00)
[2018-10-11] MEDS: hydrOXYzine HCL 10 MG TAB PO SCH (09:48)
== END 2018-10-11 12:15 | disposition home or self-care (01) | DRG 786 ==
LOC: OBT 15:42 → L-D 15:43 → OBT 16:05 → L-D 10-07 01:36 → PP1 10-07 06:28
PROVIDERS: ADMIT Obstetrics & Gynecology; ATTEND Obstetrics & Gynecology
PROC: 10D00Z1 Extraction of Products of Conception, Low, Open Approach (ICD-10-PCS; principal; 2018-10-07 02:00)
DX: O24.429 Gestational diabetes mellitus in childbirth, unspecified control (principal); O60.14X0 Preterm labor third trimester with preterm delivery third trimester, not applicable or unspecified; O34.219 Maternal care for unspecified type scar from previous cesarean delivery; O99.214 Obesity complicating childbirth; O89.4 Spinal and epidural anesthesia-induced headache during the puerperium; Z37.0 Single live birth; Z3A.36 36 weeks gestation of pregnancy
CPT/HCPCS: 36415; 76815; 76818; 80053; 81001; 81003; 82962; 84560; 85025; 85610; 85730; 86592; 86850; 86900; 86901; 87040; 87086; 87340; 90715; 96360; 99464; G0463; J0690; J1100; J1170; J1200; J1650; J1885; J2175; J2274; J2370; J2405; J2590; J2765; J3010; J7120; J7121

== ENCOUNTER 2018-11-05 19:37 | Inpatient (IN) | payer OTHER ==
[~2018-11-05] VITALS: Ht 175.3 cm; Wt 143.1 kg
[~2018-11-05 19:37] MED LIST changes: -ACET325T33 PO; -OXYM30MI NASAL
[2018-11-05] MEDS ORDERED: PIPER-TAZO 3.375 GM IV (PMX) 100 ML IVPB STA (21:07)
[2018-11-05] MEDS ORDERED: morphine 4 MG/ML VIAL IV STA (21:24)
[2018-11-05] MEDS ORDERED: ONDANSETRON 4 MG INJ IV STA (21:24)
[2018-11-05] MEDS ORDERED: ACETAMINOPHEN 325 MG TAB PO ONE (21:30)
[2018-11-05] MEDS ORDERED: SODIUM CHLORIDE 0.9% 1L BAG IV* STA (21:39)
[2018-11-05] MEDS ORDERED: ONDANSETRON 4 MG INJ IV PRN (22:30)
[2018-11-05] MEDS ORDERED: ACETAMINOPHEN 325 MG TAB PO PRN (22:30)
[2018-11-05] MEDS ORDERED: SOD CHLORIDE 0.9% 100 ML ONE (22:59)
[2018-11-05] MEDS ORDERED: IOHEXOL 300MG/ML 150 ML BTL ONE (22:59)
[2018-11-05] MEDS ORDERED: NACL 0.9% 3 ML SYG IV SCH (23:00)
[2018-11-05] MEDS ORDERED: HYDROCODONE/APAP (5/325) TAB PO PRN (23:00)
[2018-11-05] MEDS ORDERED: MAGNESIUM HYDROXIDE 30ML CUP PO PRN (23:00)
[2018-11-05] MEDS ORDERED: ZOLPIDEM 5 MG TAB PO PRN (23:00)
[2018-11-05] MEDS ORDERED: DOCUSATE SODIUM 100 MG CAP PO PRN (23:00)
[2018-11-05] MEDS ORDERED: ONDANSETRON 4 MG TAB PO PRN (23:00)
--- NOTE | 2018-11-05 23:31 | ERD ---
ER Documentation Chief Complaint Chief Complaint discharge from c/section site x 2 hours . c/section about 1 month ago HPI Patient is a 23-year-old female with no medical problems who presents with a wound infection. The patient had a done by Dr. Debbie Bullard on October 07 of this year. She noticed over the past few days she has had drainage from the wound. She has had no treatment as of yet. There is pain around the site of the . Upon review of old medical records the patient has multiple visits for various complaints. ROS All systems reviewed and are negative except as per history of present illness. Medications Home Meds Discontinued Reported Medications Vit No.124/Iron/FA ( Vitamin Tablet) 1 Each Tablet, 1 EACH PO, TAB 07/23/18 Allergies Allergies: Coded Allergies: No Known Allergy (Unverified , 11/05/18) PMhx/Soc Medical and Surgical Hx: pt denies Surgical Hx History of Surgery: Yes (Lt ankle sx, csection) Anesthesia Reaction: No Hx Neurological Disorder: No Hx Respiratory Disorders: No Hx Cardiac Disorders: No Hx Psychiatric Problems: No Hx Miscellaneous Medical Probl: No Hx Alcohol Use: No Hx Substance Use: No Hx Tobacco Use: No Smoking Status: Never smoker FmHx Family History: No diabetes Physical Exam Vitals Vital Signs Date Temp Pulse Resp B/P (MAP) Pulse Ox O2 O2 Flow FiO2 Time Delivery Rate 11/05/18 70 21 119/61 98 Room Air 22:43 (80) 11/05/18 Nasal 2 21:55 Cannula 11/05/18 70 18 123/63 98 Room Air 21:14 (83) 11/05/18 100.0 89 18 177/97 98 20:02 (123) Physical Exam Const: Moderate distress Head: Atraumatic Eyes: Normal Conjunctiva ENT: Normal External Ears, Nose and Mouth. Neck: Full range of motion. No meningismus. Resp: Clear to auscultation bilaterally Cardio: Tachycardic rate without murmur Abd: Soft, non tender, non distended. Normal bowel sounds Skin: Pus and serous fluid drainage from the mid portion of the scar Back: No midline or flank tenderness Ext: No cyanosis, or edema Neur: Awake and alert Psych: Normal Mood and Affect Result Diagram: 11/05/18211711/05/182117 Results 24 hrs Laboratory Tests Test 11/05/18 21:18 White Blood Count 9.0 10^3/ul Red Blood Count 4.57 10^6/ul Hemoglobin 11.6 g/dl Hematocrit 38.1 % Mean Corpuscular Volume 83.4 fl Mean Corpuscular Hemoglobin 25.4 pg Mean Corpuscular Hemoglobin Concent 30.4 g/dl Red Cell Distribution Width 15.2 % Platelet Count 249 10^3/UL Mean Platelet Volume 12.4 fl Immature Granulocytes % 0.400 % Neutrophils % 61.6 % Lymphocytes % 24.3 % Monocytes % 5.5 % Eosinophils % 7.8 % Basophils % 0.4 % Nucleated Red Blood Cells % 0.0 /100WBC Immature Granulocytes # 0.040 10^3/ul Neutrophils # 5.5 10^3/ul Lymphocytes # 2.2 10^3/ul Monocytes # 0.5 10^3/ul Eosinophils # 0.7 10^3/ul Basophils # 0.0 10^3/ul Nucleated Red Blood Cells # 0.0 10^3/ul Prothrombin Time 12.8 Sec Prothrombin Time Ratio 1.0 INR International Normalized Ratio 0.95 Activated Partial Thromboplast Time 28.4 Sec Sodium Level 145 mmol/L Potassium Level 3.8 mmol/L Chloride Level 106 mmol/L Carbon Dioxide Level 24 mmol/L Anion Gap 15 Blood Urea Nitrogen 9 mg/dl Creatinine 0.63 mg/dl Est Glomerular Filtrat Rate mL/min > 60 mL/min Glucose Level 90 mg/dl Lactic Acid Level 1.4 mmol/L Calcium Level 9.3 mg/dl Total Bilirubin 0.2 mg/dl Direct Bilirubin 0.00 mg/dl Indirect Bilirubin 0.2 mg/dl Aspartate Amino Transf (AST/SGOT) 91 IU/L Alanine Aminotransferase (ALT/SGPT) 50 IU/L Alkaline Phosphatase 100 IU/L Troponin I < 0.012 ng/ml Total Protein 7.9 g/dl Albumin 4.3 g/dl Globulin 3.60 g/dl Albumin/Globulin Ratio 1.19 Current Medications Medications Dose Sig/Ashtyn Start Time Status Last (Trade) Ordered Route PRN Stop Time Admin Dose Reason Admin Piperacillin 100 ml @ ONCE STAT 11/05/18 DC 11/05/18 Sod/ 200 mls/hr IVPB 21:07 21:43 Tazobactam 3/27/19 21:36 Sod 650 mg ONCE ONCE 11/05/18 DC 11/05/18 Acetaminophen PO 21:30 21:43 (Tylenol 11/05/18 21:31 Tab) Morphine 4 mg ONCE STAT 11/05/18 DC 11/05/18 Sulfate IV 21:24 21:43 (morphine) 11/05/18 21:25 Ondansetron 4 mg ONCE STAT 11/05/18 DC 11/05/18 HCl (Zofran IV 21:24 21:43 Inj) 11/05/18 21:25 Sodium 1,990 ml BOLUS OVER 2 11/05/18 DC 11/05/18 Chloride HOURS STAT 21:39 21:48 (NS) IV* 11/05/18 21:40 Ondansetron 4 mg BRIDGE ORDER 11/05/18 HCl (Zofran PRN IV 22:30 Inj) NAUSEA/VOMITI 11/06/18 22:29 NG 650 mg ER BRIDGE 11/05/18 Acetaminophen PRN PO 22:30 (Tylenol .MILD PAIN 11/06/18 22:29 Tab) 1-3 OR TEMP Potassium 1,000 ml @ Q10H IV 11/05/18 Chloride/Sodi 100 mls/hr 22:50 um Chloride IV Flush 3 ml PER 11/05/18 (NS 3 ml) PROTOCOL IV 23:00 Ondansetron 4 mg Q6H PRN 11/05/18 HCl (Zofran PO 23:00 Tab) NAUSEA/VOMITI NG 1 tab Q6H PRN 11/05/18 Acetaminophen PO .MOD PAIN 23:00 / 4-6 Hydrocodone Bitart (Peconic (5/325)) Docusate 100 mg Q12H PRN 11/05/18 Sodium PO 23:00 (Colace) .CONSTIPATION Magnesium 30 ml DAILY PRN 11/05/18 Hydroxide PO 23:00 (Milk Of Mag) .CONSTIPATION Zolpidem 5 mg QHS PRN 11/05/18 Tartrate PO .INSOMNIA 23:00 (Ambien) Famotidine 20 mg Q12 PO 11/05/18 (Pepcid) 23:00 Enoxaparin 40 mg DAILY SC 11/06/18 Sodium 09:00 (Lovenox) Sodium 100 ml @ ud STK-MED 11/05/18 DC 11/05/18 Chloride ONCE .ROUTE 22:59 23:19 11/05/18 23:00 Iohexol 150 ml STK-MED 11/05/18 DC 11/05/18 (Omnipaque ONCE .ROUTE 22:59 23:20 300mg/ ml) 11/05/18 23:00 Procedures/MDM CT abdomen pelvis is pending radiology read at this time. Chest x-ray read by radiology. EKG read by me: Rate/Rhythm: Regular rate and rhythm at a rate of 70 Intervals: Normal Impression: No evidence of ischemia or arrhythmia Sepsis Documentation: Patient's infectious symptoms have not stabilized and the patient is at risk of rapid decompensation. The patient will be admitted for careful hydration, antibiotic therapy, and infectious source control. SEVERE SEPSIS CRITERIA: Infectious source: Post infection End organ damage indicated by: No endorgan damage at this time SEPSIS MANAGEMENT Time of recognition of sepsis: 2117. Time of recognition of severe sepsis: No severe sepsis at this time. Time of recognition of septic shock: No septic shock at this time. 3 HOUR BUNDLE Blood cultures x 2 before broad-spectrum antibiotics: Yes 30 ml/kg NS bolus completed please note that ideal body weight was used Initial lactate 1.4 Repeat lactate pending SEPTIC SHOCK ASSESSMENT: No lactic acid > 4.0 No persistent hypotension (SBP < 90 or 40 mmHg drop, MAP < 65) despite 30 mL/kg IV fluid bolus VOLUME REASSESSMENT FOR SEPTIC SHOCK: No septic shock at this time PERSISTENT HYPOTENSION TREATMENT: Comfort care no Central line not Required Vasopressor started not required I considered further perfusion assessment with CVP measurement, SCVO2, bedside ultrasound volume assessment, passive leg raise, trial of further fluid bolus. And proceeded with 30 ml/kg fluid bolus of NSS, broad spectrum antibiotics, and admission. I spoke with Dr. Golden from [facility] prison [facility] who will see the patient in consultation. I spoke with Dr. Watkins from [facility] as the patient cannot be transferred to [facility] as she will need OB consultation. CRITICAL CARE Critical care time 35 minutes Emergent fluid management while maintaining close respiratory support. Provision of immediate and broad-spectrum antibiotic therapy. Simultaneous assessment for possible sources in order to direct targeted therapy. Consideration for invasive and chemical support to prevent cardiopulmonary collapse. Critical care time is independent of procedures performed. Departure Diagnosis: Primary Impression: Sepsis Sepsis type: sepsis due to unspecified organism Qualified Codes: A41.9 - Sepsis, unspecified organism Additional Impression: Wound infection following section, Condition: Fair RADHA SALINAS MD Nov 05, 2018 23:31
--- NOTE | 2018-11-06 01:14 | HP ---
Date/Time of Note Date/Time of Note DATE: 11/06/18 TIME: 01:04 Assessment/Plan VTE Prophylaxis SCD applied (from Nsg): No SCD contraindicated: other (Patient will be ambulating) Pharmacological prophylaxis: other (None, patient will be ambulating) Pharm contraindication: low risk/ambulating Lines/Catheters IV Catheter Type (from Nrsg): Saline Lock Central line still needed: No Urinary Cath still in place: No Assessment/Plan Hospital Course Status post 4 weeks ago Morbid obesity History of GDM, A2 Wound abscess, small area, in the RT side of the incision, No evidence of wound cellulitis Patient currently admitted to medicine service for IV antibiotics Swab from the wound drainage was sent for culture and sensitivity Start the patient on Zosyn Check blood sugars before meals and nightly to ensure good blood sugar control We will continue to follow up while the patient is in house Result Diagram: 11/05/18211711/05/182117 Results 24hrs Laboratory Tests Test 11/05/18 21:18 11/05/18 23:25 White Blood Count 9.0 # Red Blood Count 4.57 Hemoglobin 11.6 L Hematocrit 38.1 Mean Corpuscular Volume 83.4 Mean Corpuscular Hemoglobin 25.4 L Mean Corpuscular Hemoglobin Concent 30.4 L Red Cell Distribution Width 15.2 H Platelet Count 249 # Mean Platelet Volume 12.4 H Immature Granulocytes % 0.400 Neutrophils % 61.6 Lymphocytes % 24.3 Monocytes % 5.5 Eosinophils % 7.8 H Basophils % 0.4 Nucleated Red Blood Cells % 0.0 Immature Granulocytes # 0.040 H Neutrophils # 5.5 Lymphocytes # 2.2 Monocytes # 0.5 Eosinophils # 0.7 H Basophils # 0.0 Nucleated Red Blood Cells # 0.0 Prothrombin Time 12.8 Prothrombin Time Ratio 1.0 INR International Normalized Ratio 0.95 Activated Partial Thromboplast Time 28.4 Sodium Level 145 H Potassium Level 3.8 Chloride Level 106 Carbon Dioxide Level 24 Anion Gap 15 H Blood Urea Nitrogen 9 Creatinine 0.63 Est Glomerular Filtrat Rate mL/min > 60 Glucose Level 90 Lactic Acid Level 1.4 0.9 Calcium Level 9.3 Total Bilirubin 0.2 Direct Bilirubin 0.00 Indirect Bilirubin 0.2 Aspartate Amino Transf (AST/SGOT) 91 H Alanine Aminotransferase (ALT/SGPT) 50 Alkaline Phosphatase 100 Troponin I < 0.012 Total Protein 7.9 Albumin 4.3 Globulin 3.60 H Albumin/Globulin Ratio 1.19 HPI/ROS Admit Date/Time Admit Date/Time November 06, 2018 Hx of Present Illness Patient presented due to large amount of pus discharge from her wound of prior ROS 23-year-old status post a month ago with history of GDM and current and morbid obesity, by Dr. Lewis, presented to the hospital with complaint of large amount of foul discharge from the wound incision. Reports had a history of GDM during last and was taking metformin. Patient has been checking her blood sugar as was advised after discharge from the hospital. She has not been taking medication for diabetes. Denies any fever or chills. Denies any nausea, diarrhea, erythema around the wound. Reports mild to moderate pain around the right side of the incision where she has draining pus. Subjective hx not possible: other Constitutional: no complaints; No improved, No chills, No diaphoresis, No disoriented, No fatigue, No febrile, No nausea, No poor po, No weight change, No other Eyes: No no complaints, No pain, No discharge, No redness, No visual change, No other ENT: No no complaints, No bleeding, No pain, No congestion, No discharge, No dysphagia, No sore throat, No other Respiratory: No no complaints, No pain, No cough, No pleuritic pain, No shortness of breath, No sputum, No wheezing, No other Cardiovascular: No no complaints, No chest pain, No edema, No lightheadedness, No orthopenea, No palpitations, No paroxysmal nocturnal dyspnea, No other Gastrointestinal: pain; No no complaints, No blood, No constipation, No decreased appetite, No diar aleshia, No flatus, No nausea, No passing stool, No vomiting, No other Genitourinary: No no complaints, No bleeding, No dysuria, No discharge, No flank pain, No hematuria, No other Musculoskeletal: No no complaints, No back pain, No bone/joint pain, No neck p ain, No restricted range of motion, No swelling, No other Skin: other (Drainage from the right side of the incision from a 1 cm wound opening in the right side of the transverse incision. No evidence of erythema around the incision. ); No no complaints, No bruising, No erythema, No laceration, No pruritis, No rash, No skin lesions Neurologic: no complaints Endocrine: no complaints Lymphatic: no complaints PMH/Family/Social Past Medical History Past medical history: #1: Morbid obesity #2: GDM Past surgical history: #1: Status post x2 THERAPY TECHNICIAN history: , status post x2 GDM and last . 4 weeks Was on metformin during 500 mg once a day Denies any history of ovarian cyst, fibroid Or any other gynecologic problem Denies any history of abnormal Pap smear Medications Current Medications Ondansetron HCl (Zofran Inj) 4 mg BRIDGE ORDER PRN IV NAUSEA/VOMITING; Start 11/05/18 at 22:30; Stop 11/06/18 at 22:29 Acetaminophen (Tylenol Tab) 650 mg ER BRIDGE PRN PO .MILD PAIN 1-3 OR TEMP; Start 11/05/18 at 22:30; Stop 11/06/18 at 22:29 Potassium Chloride/Sodium Chloride 1,000 ml @ 100 mls/hr Q10H IV ; Start 11/05/18 at 22:50 IV Flush (NS 3 ml) 3 ml PER PROTOCOL IV ; Start 11/05/18 at 23:00 Ondansetron HCl (Zofran Tab) 4 mg Q6H PRN PO NAUSEA/VOMITING; Start 11/05/18 at 23:00 Acetaminophen/ Hydrocodone Bitart ([place] (5/325)) 1 tab Q6H PRN PO .MOD PAIN 4- 6; Start 11/05/18 at 23:00 Docusate Sodium (Colace) 100 mg Q12H PRN PO .CONSTIPATION; Start 11/05/18 at 23:00 Magnesium Hydroxide (Milk Of Mag) 30 ml DAILY PRN PO .CONSTIPATION; Start 11/05/18 at 23:00 Zolpidem Tartrate (Ambien) 5 mg QHS PRN PO .INSOMNIA; Start 11/05/18 at 23:00 Famotidine (Pepcid) 20 mg Q12 PO ; Start 11/05/18 at 23:00 Enoxaparin Sodium (Lovenox) 40 mg DAILY SC ; Start 11/06/18 at 09:00 Coded Allergies: No Known Allergy (Unverified , 11/05/18) Past Surgical History Past Surgical Hx: other Family History Significant Family History: no pertinent family hx Social History Smoking Status: Never smoker Exam/Review of Systems Vital Signs Vitals Vital Signs Date Temp Pulse Resp B/P (MAP) Pulse Ox O2 O2 Flow FiO2 Time Delivery Rate 11/06/18 70 21 123/63 95 Room Air 00:00 (83) 11/05/18 2 21:55 11/05/18 100.0 20:02 Exam Constitutional: alert, oriented, well developed Psych: no complaints, nl mood/affect Head: normocephalic, atraumatic Neck: supple, non-tender Respiratory: clear to auscultation, normal air movement Cardiovascular: regular rate and rhythm, nl pulses Gastrointestinal: soft, other (The incision well-healed except 1 cm in the right corner of the incision that has been draining large amount of pus. After draining of the pus and obtaining culture the area was evaluated and probed using a Q-tip. Does not appear any defect in the fascia. Fascia appears intact.) Extremities: normal pulses, edema, other (Bilateral lower extremity 2+ edema. No calf tenderness, no click no cord palpable) ETHAN CAMILO MD Nov 06, 2018 01:14
[2018-11-06] MEDS: FAMOTIDINE 20 MG TAB PO SCH ×2 (01:22→10:49)
[2018-11-06] MEDS: NS + KCL 20 MEQ 1,000 ML IV SCH ×2 (01:22→08:50)
[2018-11-06 03:00] VITALS: BP 113/63; PULSE 58; RESP 20
[2018-11-06 03:54] VITALS: Ht 175.3 cm; Wt 143.1 kg
[2018-11-06 07:25] VITALS: BP 137/65; PULSE 56; RESP 20
[2018-11-06] MEDS ORDERED: ENOXAPARIN 40 MG/0.4 ML SYG SC SCH (09:00)
[2018-11-06] MEDS ORDERED: SULF1TAB31 PO (09:48)
--- NOTE | 2018-11-06 09:50 | PDOCDIS ---
Discharge Instructions CONDITION [id number] Patient Condition: [id number] Good HOME CARE INSTRUCTIONS: [id number] Diet Instructions: [id number] Regular ACTIVITY: [id number] Activity Restrictions: [id number] No Restrictions FOLLOW UP/APPOINTMENTS Follow-up Plan Dr Stallworth 1 week pcp 1 week OTHER ORDERS: Other Orders: return to ER if developing fever or pus persists after 1 week JENA BELLAMY MD Nov 06, 2018 09:50
[2018-11-06] MEDS ORDERED: PIPER-TAZO 3.375 GM IV (PMX) 100 ML IVPB ONE (10:00)
--- NOTE | 2018-11-06 11:28 | DS ---
DATE OF ADMISSION: 11/05/2018 DATE OF DISCHARGE: 11/06/2018 CHIEF COMPLAINT: Pus coming from lower abdomen. HISTORY OF PRESENT ILLNESS: A 23-year-old morbidly obese female with status post one month prior to admission, presented to Emergency Room with compliant of foul discharge from the site of th e wound. The patient denies any fevers or chills. No nausea or vomiting. No abdominal pa in. The patient underwent CT scan imaging of the abdomen and pelvis. Subcutaneous fat infiltration was noted with minimal gas along the incision. No definite drainable fluid collection was identified . There was no leukocytosis. The patient was seen by Dr. Golden and underwent drainage of the pus. There was no evidence of cellulitis. She is a stable condition for discharge. I prescribed 10 day s of Bactrim double strength b.i.d. Case was discussed with Dr. Golden, who agreed with discharge. Wound culture was obtained and Dr. Amaya, her commercial coordinator will followup on the result. Patient was instructed to return to the Emergency Room in case she develops fevers or the pus persists more t ricci one week. Dictated By: JENA BELLAMY MD SK/NTS Conf#: [id number] DID#: [id number] CC: JAVY AMAYA MD;*EndCC*
[2018-11-06 12:54] VITALS: BP 146/66; PULSE 60; RESP 20
== END 2018-11-06 14:09 | disposition home or self-care (01) | DRG 776 ==
LOC: E/R 19:37 → UNDOADMIN 22:26 → MS3 22:26
PROVIDERS: ADMIT Internal Medicine; ATTEND Internal Medicine
DX: O86.01 Infection of obstetric surgical wound, superficial incisional site (principal); Z68.42 Body mass index [BMI] 45.0-49.9, adult; E66.01 Morbid (severe) obesity due to excess calories
CPT/HCPCS: 36415; 71045; 74177; 80048; 80053; 81001; 83036; 83605; 84436; 84479; 84484; 85025; 85610; 85730; 87040; 87070; 87086; 93005; 96365; 96375; J1650; J2270; J2405; J2543; J3480; J7030; Q9967

== ENCOUNTER 2018-12-28 22:13 | Emergency (ER) | payer OTHER ==
[~2018-12-28] VITALS: Ht 170.2 cm; Wt 100.0 kg
[~2018-12-28 22:13] MED LIST changes: -PREN-93 PO; +SULF1TAB31 PO
[2018-12-28 22:17] VITALS: BP 142/68; PULSE 82; RESP 20; Ht 170.2 cm; Wt 100.0 kg
[2018-12-28] MEDS ORDERED: CEPH-443 PO (23:24)
--- NOTE | 2018-12-29 00:12 | ERD ---
ER Documentation Chief Complaint Chief Complaint open wound on csec tion wound 3 months ago HPI History of Present Illness: 23-year-old Bermudian-speaking female who denies a past medical history coming today with complaint of open wound to her C-sections scar. Patient reports giving on 10/07/2018. Reports that she saw her MERCHANT MARINER approximately 2 weeks ago and scar had not had open wound. Patient reports that yesterday she noted that wound began to open and now has tenderness. Patient denies fever, chills, purulent drainage. Patient's who is Irish-speaking is present. At home pharmacological/nonpharmacological treatment for symptoms: Denies Denies social concerns; Denies recent foreign travel ROS All systems reviewed and are negative except as per history of present illness. Medications Home Meds Active Scripts Cephalexin* (Keflex*) 500 Mg Capsule, 500 MG PO TID for SKIN WOUND INFECTION PROPHYLAX for 10 Days, CAP Prov:KRISTINA UBRNS NP 12/28/18 Sulfamethoxazole/Trimethoprim* (Bactrim Ds* Tablet) 1 Each Tablet, 1 TAB PO BID for 10 Days, TAB Prov:JENA BELLAMY MD 11/06/18 Allergies Allergies: Coded Allergies: No Known Allergy (Unverified , 11/05/18) PMhx/Soc Medical and Surgical Hx: pt denies Medical Hx History of Surgery: Yes () Anesthesia Reaction: No Hx Neurological Disorder: No Hx Respiratory Disorders: No Hx Cardiac Disorders: No Hx Psychiatric Problems: No Hx Miscellaneous Medical Probl: No Hx Alcohol Use: No Hx Substance Use: No Hx Tobacco Use: No FmHx Family History: diabetes Physical Exam Vitals Vital Signs Date Temp Pulse Resp B/P (MAP) Pulse Ox O2 O2 Flow FiO2 Time Delivery Rate 12/28/18 97.1 82 20 142/68 96 22:17 (92) Physical Exam Const: No acute distress Head: Atraumatic Eyes: Normal Conjunctiva ENT: Normal External Ears, Nose and Mouth. Neck: Full range of motion. No meningismus. Resp: Clear to auscultation bilaterally Cardio: Regular rate and rhythm, no murmurs Abd: Soft, non tender, non distended. Normal bowel sounds. Obese. 1 cm dehiscence of section wound present, no erythema, no warmth, no purulent drainage, positive tenderness to palpation. Skin: No petechiae or rashes Back: No midline or flank tenderness Ext: No cyanosis, or edema Neur: Awake and alert Psych: Normal Mood and Affect Procedures/MDM ED course includes a thorough examination and history. ED course includes wound care. Low suspicion for life-threatening medical emergency. Low suspicion for infectious emergency that requires hospitalization at this time. Low suspicion for acute abdominal emergency that requires hospitalization. Otherwise healthy patient presenting with constellation of symptoms likely representing dehiscence of section wound as characterized by history, physical exam findings. Patient reassessment @2325: Patient hemodynamically stable. No respiratory distress, otherwise relatively well appearing and nontoxic. Disposition given. Patient educated on diagnoses, prescriptions, follow-up care, return precautions. Strict return precautions given for worsening condition; questions answered discharge. Patient verbalizes understanding of instructions as well as follow-up care to ensure that proper healing occurs with wound, patient needs to see MERCHANT MARINER. Disposition for discharge with followup in 2 days with PCP/clinic. Departure Diagnosis: Primary Impression: Dehiscence of section wound, Additional Impression: Encounter for wound re-check Condition: Stable Patient Instructions: Post Op Wound Check, Pain Referrals: [facility] YOU HAVE RECEIVED A MEDICAL SCREENING EXAM AND THE RESULTS INDICATE THAT YOU DO NOT HAVE A CONDITION THAT REQUIRES URGENT TREATMENT IN THE EMERGENCY DEPARTMENT. FURTHER EVALUATION AND TREATMENT OF YOUR CONDITION CAN WAIT UNTIL YOU ARE SEEN IN YOUR DOCTORS OFFICE WITHIN THE NEXT 1-2 DAYS. IT IS YOUR RESPONSIBILITY TO MAKE AN APPOINTMENT FOR FOLOW-UP CARE. IF YOU HAVE A PRIMARY DOCTOR --you should call your primary doctor and schedule an appointment IF YOU DO NOT HAVE A PRIMARY DOCTOR YOU CAN CALL OUR PHYSICIAN REFERRAL HOTLINE AT IF YOU CAN NOT AFFORD TO SEE A PHYSICIAN YOU CAN CHOSE FROM THE FOLLOWING [facility] [address] [facility]. [facility] [address] [facility] [address] [facility] [address] [facility] [address] [facility]. [facility]. [address] [facility]. [facility] YOU HAVE RECEIVED A MEDICAL SCREENING EXAM AND THE RESULTS INDICATE THAT YOU DO NOT HAVE A CONDITION THAT REQUIRES URGENT TREATMENT IN THE EMERGENCY DEPARTMENT. FURTHER EVALUATION AND TREATMENT OF YOUR CONDITION CAN WAIT UNTIL YOU ARE SEEN IN YOUR DOCTORS OFFICE WITHIN THE NEXT 1-2 DAYS. IT IS YOUR RESPONSIBILITY TO MAKE AN APPOINTMENT FOR FOLOW-UP CARE. IF YOU HAVE A PRIMARY DOCTOR --you should call your primary doctor and schedule and appointment IF YOU DO NOT HAVE A PRIMARY DOCTOR YOU CAN CALL OUR PHYSICIAN REFERRAL HOTLINE AT . IF YOU CAN NOT AFFORD TO SEE A PHYSICIAN YOU CAN CHOSE FROM THE FOLLOWING [facility] INSTITUTIONS: [facility] [address] [place] [address] [facility] [address] [place] [address] [facility] [address] [place] [address] Additional Instructions: Thank you very much for allowing us to participate in your care. Your health and safety is our top priority at [facility]. It is important to read all discharge instructions and education provided in your discharge packet. *It is very important to see your timber skidder for reevaluation of the section wound. Although there are no signs of infection currently at this time, it is important to take antibiotics as directed due to increased risk of infection due to open wound. Keep area clean and dry and covered.* Call your primary care doctor TOMORROW for an appointment during the next 2-4 days and bring all the information and medications prescribed. Have prescriptions filled and follow precisely the directions on the label. -Cephalexin is an antibiotic; take this medication every day as listed on your prescription. You must complete the entire course of treatment that is listed on your prescription this is very important because it takes a certain number of days to kill the bacteria that can cause the infection. If the symptoms get worse and your provider is unavailable, return to the Emergency Department immediately. KRISTINA BURNS NP December 29, 2018 00:12
== END 2018-12-28 23:35 | disposition home or self-care (01) ==
LOC: FTE 22:13
DX: O90.0 Disruption of cesarean delivery wound (principal); Z48.01 Encounter for change or removal of surgical wound dressing
CPT/HCPCS: 99283